=== PATIENT | male | born 1935 | race Caucasian/White ===

== ENCOUNTER → 2016-10-02 | Outpatient (REF) | payer MEDICARE ==
[~2016-10-02] MED LIST: HYDR-4266 PO; LEVO50TA45 PO; PRED20TAB PO
== END ==
LOC: M LAB REF 12:40
PROVIDERS: ATTEND Internal Medicine Pulmonary Disease
DX: J47.9 Bronchiectasis, uncomplicated (principal)

== ENCOUNTER 2016-10-19 13:02 | Inpatient (IN) | payer MEDICARE ==
[~2016-10-19] VITALS: Ht 165.1 cm; Wt 58.0 kg
[2016-10-19 13:56] LABS: BASO % 0.2 % (0.0-1.0); EOS % 0.6 % (0.0-3.0); LARGE UNSTAINED CELL # 0.1 K/mm3 (0.0-0.4); LARGE UNSTAINED CELL % 0.8 % (0.0-4.0); LYMPH # 0.7 K/mm3 (1.5-4.5); MEAN CORPUSCULAR HEMOGLOBIN 30.5 pg (27.0-33.0); MEAN CORPUSCULAR HGB CONC 32.8 g/dl (32.0-36.5); MEAN CORPUSCULAR VOLUME 93.1 fl (80.0-96.0); MONO # 0.2 K/mm3 (0.0-0.8); MONO % 2.3 % (0.0-5.0); NEUTROPHILS # 7.7 K/mm3 (1.8-7.7); NEUTROPHILS % 88.1 % (36.0-66.0); PLATELET COUNT, AUTOMATED 234 k/mm3 (150-450); WHITE BLOOD COUNT 8.8 K/mm3 (4.0-10.0)
[2016-10-19 14:04] LABS: CALCIUM LEVEL 8.4 MG/DL (8.8-10.2); CREATININE FOR GFR 1.34 MG/DL (0.70-1.30); GLOMERULAR FILTRATION RATE 54.6 (>35); POTASSIUM SERUM 3.8 MEQ/L (3.5-5.1)
[2016-10-19 14:14] LABS: ABG BASE EXCESS -0.5 (-2.0-2.0); ABG DEVICE NASAL CANN; ABG HCO3 22.1 MEQ/L (22.0-26.0); ABG PARTIAL PRESSURE CO2 30.1 mmHg (35.0-45.0); ABG PARTIAL PRESSURE O2 69.8 mmHg (75.0-100.0); ABG pH (ARTERIAL) 7.483 UNITS (7.350-7.450)
--- NOTE | 2016-10-19 14:17 | REP ---
Chest x-ray: Two views. History: Shortness of breath. Comparison chest x-ray October 15, 2016. Findings: EKG monitoring electrodes and oxygen delivery tubing are seen. There is a pattern of diffuse extensive interstitial opacification of the lung martínez particularly the left base right upper lung zone and right base area. There is some sparing in the left upper lung zone. Pattern is radiographically unchanged from October 15, 2016. It is much more pronounced than the interstitial fibrosis pattern seen on February 21, 2016. Heart is not enlarged. No pleural effusion is seen. Impression: Progressive and now marked diffuse interstitial lung disease; fibrosis versus other. Some sparing in the left upper lung zone. No significant change from the most recent prior study of October 15, 2016. Signed by Joaquin Sanders MD 10/19/2016 02:50 P
[2016-10-19] MEDS ORDERED: PRED10TA PO (14:53)
[2016-10-19] MEDS ORDERED: VITMTA PO (14:53)
[2016-10-19] MEDS ORDERED: BENZ100C5 PO (14:53)
[2016-10-19] MEDS ORDERED: SYNT75TA PO (14:53)
[2016-10-19] MEDS ORDERED: ISOVUE-370 76% 100ML VIAL (Q9967) As Ordered ONE (16:12)
--- NOTE | 2016-10-19 16:54 | REP ---
CT of the chest, CT pulmonary angiography with IV contrast: Comparison is 2015. There are no emboli in the pulmonary trunk or in the central pulmonary arteries. There are no emboli in the pulmonary lobe or segment branches. There is chronic advanced interstitial fibrosis, also present on the comparison study. However, the study today. There are bilateral superimposed alveolar densities compatible with acute infiltrates suggesting acute on chronic and disease bilaterally. There are small bilateral pleural effusions, also not present previously. The thoracic aorta is unremarkable except for calcified atheroma. Cardiac size is enlarged . There are no pericardial effusions. There is mediastinal adenopathy, similar to the comparison study. Upper abdomen: Cholelithiasis is again identified was also present previously. Visualized portions of the liver, pancreas, spleen, adrenals and renal upper poles are unchanged. Impression: Chronic interstitial fibrosis. New alveolar densities extensively throughout both lungs today suggesting acute infiltrates on chronic fibrosis. New small bilateral pleural effusions. Chronic mediastinal lymphadenopathy. Cholelithiasis, also present previously. Cardiomegaly without pericardial effusion. Signed by Tam Piedra MD 10/19/2016 04:44 P
--- NOTE | 2016-10-19 17:39 | ECGEPIP ---
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
[2016-10-19] MEDS ORDERED: LevoFLOXacin/DEXTROSE 750 MG/150 ML BAG (J1956) As Ordered ONE (18:42)
[2016-10-19] MEDS ORDERED: NS 1,000 ML IV SCH (20:06)
[2016-10-19] MEDS ORDERED: BENZONATATE 100 MG CAP PO PRN (20:15)
[2016-10-19 21:52] VITALS: BP 163/77
[2016-10-19] MEDS ORDERED: cefTRIAXone SOD 1 GM in D5W MINI-BAG PLUS 50 ML IV SCH (22:00)
[2016-10-19] MEDS ORDERED: AZITHROMYCIN INJ 500MG VIAL (J0456) As Ordered ONE (22:49)
[2016-10-19] MEDS: AZITHROMYCIN INJ 500 MG, VIAL MATE ADAPTER 1 EACH in D5W 250 ML IV SCH (22:53)
[2016-10-19 23:05] VITALS: O2SAT 90
--- NOTE | 2016-10-19 23:52 | HPE ---
DATE OF ADMISSION: 10/19/2016 PRIMARY CARE PROVIDER: Dr. Isacc Pritchard [place] DEMONSTRATOR: Dr. Rushing REASON FOR ADMISSION: Shortness of breath. HISTORY OF PRESENT ILLNESS: The patient is an 80-year-old male, past medical history significant for pulmonary fibrosis, sees Dr. Rushing, presented to the emergency room. He stated he has been feeling short of breath for the past 3 days. Denies any fevers or chills. He states he has been having chest pain only with cough. Denies any sick contacts. Denies any other symptoms in the emergency room. The patient underwent a chest x-ray which showed progressive diffuse interstitial disease. CT scan angio was also done which showed new densities throughout both lungs, suggesting acute infiltrates on chronic fibrosis. The patient was admitted under hospitalist service. REVIEW OF SYSTEMS: 12-point review of systems was obtained, all of which was negative except for those mentioned above. PAST MEDICAL HISTORY: Significant for: Pulmonary fibrosis. Hypothyroidism. PAST SURGICAL HISTORY: Hemorrhoidectomy. ALLERGIES: No known drug allergies. HOME MEDICATIONS: - levothyroxine 75 mcg by mouth daily - Prevnar 13 syringe as directed SOCIAL HISTORY: No smoking or alcohol use. Lives at home with his . FAMILY HISTORY: Noncontributory. PHYSICAL FINDINGS: Blood pressure 181/84, pulse 127, respiratory rate 22, temperature 96.3, pulse oximetry 100% on room air. HEENT: Pupils equal, round, reactive. Neck: Supple. No jugular venous distention (JVD). Lungs: Diminished breath sounds. Cardiac: Regular rate and rhythm. Abdomen: Soft, nontender, nondistended. Extremities: No clubbing, cyanosis or edema. LABORATORY FINDINGS: WBC is 8.8, hemoglobin 12.6, hematocrit 38.5, platelets 234. Sodium 139, potassium 3.8, chloride 104, BUN 25, creatinine 1.34, lactic acid was 3.7, troponin 0.25. BNP 3060. ASSESSMENT AND PLAN: 1. Shortness of breath likely secondary to pulmonary fibrosis plus or minus pneumonia. We will treat the patient with antibiotics. Continue oxygen to keep saturations above 90%. Obtain sputum culture, Acapella and incentive spirometer. 2. History of hypothyroidism. Continue the patient's home medication. 3. History of pulmonary fibrosis. The patient was to see Dr. Rushing tomorrow for pulmonary function testing. He will have to reschedule. We will defer to morning team for pulmonary consultation if needed. 4. Deep vein thrombosis (DVT) prophylaxis. Thromboembolism deterrents (TEDs) and sequentials. 5. Elevated troponins. The patient denies any chest pain at this time. No EKG changes. We will continue to monitor on telemetry. 6. Acute kidney injury, likely secondary to dehydration. We will start the patient on IV fluids at a rate of 70 mL an hour. Continue to monitor.
[2016-10-20] VITALS (8 sets, daily range): BP systolic 118–177; BP diastolic 62–89
[2016-10-20] MEDS ORDERED: cefTRIAXone SOD 1 GM VIAL (J0696) As Ordered ONE (00:09)
[2016-10-20 04:59] LABS: ABG BASE EXCESS 0.9 (-2.0-2.0); ABG HCO3 22.9 MEQ/L (22.0-26.0); ABG PARTIAL PRESSURE CO2 28.9 mmHg (35.0-45.0); ABG PARTIAL PRESSURE O2 55.9 mmHg (75.0-100.0); ABG STANDARD HCO3 25.1 MEQ/L (22.0-26.0); ABG TOTAL CO2 23.7 MEQ/L (23.0-31.0); ABG pH (ARTERIAL) 7.516 UNITS (7.350-7.450)
[2016-10-20] MEDS ORDERED: FUROSEMIDE 40 MG/4 ML VIAL (J1940) IV SCH (05:30)
[2016-10-20] MEDS ORDERED: NITROGLYCERIN 2% OINT 1 GM *U/D* PKT As Ordered ONE (05:41)
[2016-10-20] MEDS ORDERED: FUROSEMIDE 40 MG/4 ML VIAL (J1940) As Ordered ONE ×2 (05:41→16:32)
[2016-10-20] MEDS: NITROGLYCERIN 2% OINT 1 GM *U/D* PKT TOP SCH ×3 (05:46→18:11)
[2016-10-20] MEDS: LEVOTHYROXINE 0.075 MG TAB (75 MCG) PO SCH (06:16)
[2016-10-20 07:56] LABS: BASO % 0.1 % (0.0-1.0); EOS % 0.3 % (0.0-3.0); LARGE UNSTAINED CELL # 0.1 K/mm3 (0.0-0.4); LARGE UNSTAINED CELL % 1.1 % (0.0-4.0); LYMPH % 11.6 % (24.0-44.0); MEAN CORPUSCULAR HEMOGLOBIN 31.2 pg (27.0-33.0); MEAN CORPUSCULAR HGB CONC 33.9 g/dl (32.0-36.5); MEAN CORPUSCULAR VOLUME 91.8 fl (80.0-96.0); MONO # 0.3 K/mm3 (0.0-0.8); NEUTROPHILS # 6.9 K/mm3 (1.8-7.7); NEUTROPHILS % 83.8 % (36.0-66.0); PLATELET COUNT, AUTOMATED 230 k/mm3 (150-450); WHITE BLOOD COUNT 8.3 K/mm3 (4.0-10.0)
[2016-10-20 08:10] LABS: ALBUMIN 2.1 GM/DL (3.2-5.2); ALKALINE PHOSPHATASE 96 U/L (45-117); ALT/SGPT 32 U/L (12-78); ANION GAP 12 MEQ/L (8-16); AST/SGOT 34 U/L (15-37); BILIRUBIN,TOTAL 1.1 MG/DL (0.2-1.0); BLOOD UREA NITROGEN 23 MG/DL (7-18); CALCIUM LEVEL 8.1 MG/DL (8.8-10.2); CARBON DIOXIDE LEVEL 26 MEQ/L (21-32); CHLORIDE LEVEL 102 MEQ/L (98-107); GLOMERULAR FILTRATION RATE > 60.0 (>35); GLUCOSE, FASTING 136 MG/DL (83-110); POTASSIUM SERUM 3.5 MEQ/L (3.5-5.1); SODIUM LEVEL 140 MEQ/L (136-145); TOTAL PROTEIN 7.4 GM/DL (6.4-8.2)
--- NOTE | 2016-10-20 08:22 | REP ---
Portable chest x-ray: Single view. History: Hypoxia. Comparison chest x-ray October 19, 2016. Findings: EKG monitoring electrodes overlie the chest. There is extensive interstitial lung disease throughout the lung martínez with some sparing in the left apex again noted essentially unchanged. Mild cardiomegaly unchanged. Impression: Extensive diffuse interstitial lung disease essentially unchanged from the previous day's study. Signed by Joaquin Sanders MD 10/20/2016 08:27 A
[2016-10-20] MEDS ORDERED: predniSONE 10 MG TAB PO SCH (09:00)
[2016-10-20] MEDS ORDERED: predniSONE 5 MG TAB As Ordered ONE (09:10)
[2016-10-20] MEDS ORDERED: MULTIVITAMINS/MINERALS THERAP 1 TAB As Ordered ONE (09:10)
[2016-10-20] MEDS: MULTIVITAMINS/MINERALS THERAP 1 TAB PO SCH (09:13)
[2016-10-20] MEDS ORDERED: diphenhydrAMINE 25 MG CAP PO PRN (13:30)
--- NOTE | 2016-10-20 13:38 | IPN ---
DATE: 10/20/2016 80-year-old gentleman seen at bedside. No overnight issues. He does still continue to be a little lethargic and short of breath but is having a nonproductive cough. OBJECTIVE Temperature is 99.5, pulse 120, blood pressure 118/82, SpO2 is 87% on 4 liters. GENERAL: The patient appears to be in no acute distress. He is alert and oriented. HEENT: Unremarkable. LUNGS: Diminished bibasilar breath sounds. HEART: Regular rate and rhythm. ABDOMEN: Soft. EXTREMITIES: No edema. No calf tenderness. LABORATORY DATA: White count 8.3, hemoglobin 12.9, platelets are 230,000. Sodium 140, potassium 3.5, chloride 102, bicarbonate 26, anion gap 12, BUN is 23, creatinine 1.10, glucose is 136, lactic acid repeat at midnight was 1.4, AST 34, ALT 32, alkaline phosphatase 96, troponin 0.2. BNP on admission was greater than 3000, blood cultures negative times two. Sputum culture is pending. ASSESSMENT AND PLAN: 1. Acute hypoxic respiratory failure superimposed on chronic respiratory failure with home oxygen use. We will check his sputum culture. Acapella and incentive spirometer are continued with nebulizes. He does have an underlying history of pulmonary fibrosis. 2. Elevated troponin with elevated BNP. He did receive a dose of Lasix this morning. Repeating a chest x-ray on him. 3. Acute kidney injury. Does show extensive diffuse interstitial lung disease. No acute infiltrate or consolidation noted. CT angio of the chest showed chronic interstitial fibrosis and alveolar densities were seen throughout the lung martínez suggesting acute infiltrates superimposed on chronic fibrosis. Small bilateral pleural effusions were noted. There is no echocardiogram available to me. We will go ahead and order an echo on him . I do wonder if there is a component of congestive heart failure involved with this gentleman. He does not have any lower extremity edema at this time, but he did have an elevated BMP. 4. Hypothyroidism. Continue with Synthroid. 5. Deep vein thrombosis (DVT) prophylaxis with KEYUR and sequential compression device (SCD). DISPOSITION: Anticipate he will be here greater than two midnights. I am going to give him some Solu-Medrol to see if this helps out with his symptomatology. We will see how he does and see what his echocardiogram shows and cycle his cardiac enzymes again. Based on how he does over the next 24 hours, it may be advisable to either consult pulmonology versus cardiology.
[2016-10-20] MEDS ORDERED: methylPREDNISolone INJ 125 MG/2 ML VIAL (J2930) IV ONE (14:30)
--- NOTE | 2016-10-20 14:30 | PHACANCOPD ---
PHARMACY VANCOMYCIN DOSING Pt Demographics Demographics Patient Age:80 , Weight:64.800 , Gender: male Adjusted Body Weight Date: 10/20/16, Adjusted Body Weight: [64.8] Kg Events Past 24 Hours Events Past 24 Hours: NO: Change in CrCl, Dialysis, Diuretic Therapy, Elevation in WBC, Fever, Other, Pending Diagnostics, Pending Procedures Vancomycin Vancomycin indication: SEPSIS Vancomycin Target Ranges: 15-20 mcg/ml Vancomycin Load Y/N: Yes Load Dose Date Time Vancomycin Load Dose: 1.5G Date: 10/20/16 Time: 1500 Vancomycin Dose Date: 10/20/16. Current Vancomycin Dose: [1G Q24H @1300] Intermittent Dosing?: No Labs Labs Item Value Date Time White Blood Count 8.8 K/mm3 10/19/16 1249 White Blood Count 8.3 K/mm3 10/20/16 0724 Creatinine 1.10 MG/DL 10/20/16 0724 Vital Signs Label Value Date Time Patient Temperature 97.5 degrees F 10/20/16 1200 Temperature Source Oral 10/20/16 1200 Micro Microbiology 10/19/16 Blood Culture, Received Pending 10/19/16 Blood Culture - Preliminary, Resulted No growth after 24 hours . All specim... 10/19/16 Gram Stain - Final, Resulted 10/19/16 Sputum Culture, Resulted Pending Creatinine Clearance Date:10/20/16. Creatinine Clearance: [46.6ML/MIN]. Pending Labs BLOOD AND SPUTUM CULTURE Assessment and Plan Maintaining Current Dose?: Yes Reason for dose change: No Dose Change Pharmacist Note Pharmacist Note Date: 10/20/16. Pharmacist note: PT is an 80 y/o with no history of vancomycin therapy at [facility] being treated for sepsis. Pt currently has a sputum and blood culture pending. Target therapy is 15-20mcg/ml. To achieve this a 1.5g loading dose was gave at 1500 10/20/16 with maintenance of 1g q24h. We will continue to monitor and adjust as needed. [facility] Oct 20, 2016 14:30
[2016-10-20] MEDS ORDERED: VANCOMYCIN 1000 MG/20 ML VIAL (J3370) As Ordered ONE (15:14)
[2016-10-20] MEDS ORDERED: methylPREDNISolone INJ 125 MG/2 ML VIAL (J2930) As Ordered ONE (15:14)
[2016-10-20] MEDS ORDERED: PHENAZOPYRIDINE 100 MG TAB As Ordered ONE (15:14)
[2016-10-20] MEDS: PHENAZOPYRIDINE 100 MG TAB PO SCH ×2 (15:20→22:37)
[2016-10-20] MEDS: VANCOMYCIN HCL 1,000 MG, VIAL MATE ADAPTER 1 EACH in D5W 250 ML IV SCH (15:20)
[2016-10-20] MEDS ORDERED: VANCOMYCIN HCL 500 MG in D5W MINI-BAG PLUS 100 ML IV ONE (16:00)
[2016-10-20] MEDS ORDERED: VANCOMYCIN HCL 500 MG/10 ML VIAL (J3370) As Ordered ONE (16:32)
[2016-10-20] MEDS: FUROSEMIDE 40 MG/4 ML VIAL (J1940) IV SCH ×2 (16:39→21:34)
[2016-10-20 17:23] LABS: ABG BASE EXCESS 3.1 (-2.0-2.0); ABG HCO3 25.5 MEQ/L (22.0-26.0); ABG PARTIAL PRESSURE CO2 31.9 mmHg (35.0-45.0); ABG PARTIAL PRESSURE O2 77.9 mmHg (75.0-100.0); ABG STANDARD HCO3 27.2 MEQ/L (22.0-26.0); ABG TOTAL CO2 26.4 MEQ/L (23.0-31.0)
--- NOTE | 2016-10-20 17:43 | EDDOCDS ---
Physician Documentation [facility] Name: Andre Lozano Age: 80 yrs Sex: Male : 1935 Arrival Date: 10/19/2016 Time: 13:02 Bed Admit Hold Private MD: Isacc Pritchard Disposition: 10/19 18:27 Critical Care: Critical care not applicable. le Disposition: 10/19/16 18:26 Hospitalization ordered by Kory Alford for Inpatient Admission. Preliminary diagnosis are Unspecified bacterial pneumonia, Idiopathic pulmonary fibrosis, Shortness of breath, Acute respiratory failure with hypoxia. - Bed requested for PCU. - Status is Inpatient Admission. aa3 - Condition is Stable. - Problem is an acute exacerbation. - Symptoms have improved. Historical: - Allergies: no known allergies; - Home Meds: 1. Cialis 2.5 mg oral tab 1 tab once daily 2. previnar 13 syringe as directed 3. levothyroxine 75 mcg oral tab once daily 4. Cefuroxime Oral 500 mg twice a day started 10/17/2015 5. benzonatate 100 mg oral cap 1 cap 3 times per day - PMHx: Hypothyroidism; pulmonary fibrosis; - PSHx: Hemorrhoidectomy; - Social history: Smoking status: Patient states was never smoker of tobacco. No barriers to communication noted, Speaks appropriately for age. - Family history: Not pertinent. - : The pt / caregiver states he / she is not on anticoagulants. Unable to Verify Home Med List with the patient / caregiver. - Exposure Risk Screening:: None identified. Vital Signs: 13:04 BP 181 / 84; Pulse 127; Resp 22 S; Temp 96.3; Pulse Ox 100% on R/A; Weight 67.13 kg / dd6 148 lbs (R); Height 5 ft. 5 in. (165.10 cm) (R); 13:26 Pulse 112 MON; Pulse Ox 71% ; kcs 13:30 BP 192 / 92 (auto/); kcs 13:36 Pulse 111 MON; Pulse Ox 95% ; kcs 14:07 Pulse 110 MON; Pulse Ox 94% ; rs3 14:08 BP 154 / 76 (auto/); rs3 14:13 Pulse 105 MON; Pulse Ox 95% ; rs3 14:18 BP 164 / 94 (auto/); rs3 14:18 Pulse 106 MON; Pulse Ox 96% ; rs3 14:33 BP 170 / 80 (auto/); rs3 14:33 Pulse 104 MON; Pulse Ox 95% ; rs3 14:48 BP 170 / 73 (auto/); rs3 14:48 Pulse 104 MON; Pulse Ox 96% ; rs3 15:03 BP 139 / 66 (auto/); rs3 15:03 Pulse 101 MON; Pulse Ox 95% ; rs3 15:16 Pulse 106 MON; Pulse Ox 93% ; rs3 15:18 BP 116 / 69 (auto/); rs3 15:48 BP 191 / 85 (auto/); rs3 15:48 Pulse 104 MON; Pulse Ox 94% ; rs3 16:03 BP 171 / 85 (auto/); rs3 16:03 Pulse 103 MON; Pulse Ox 95% ; rs3 16:18 BP 168 / 80 (auto/); rs3 16:18 Pulse 102 MON; Pulse Ox 94% ; rs3 16:33 BP 164 / 76 (auto/); rs3 16:34 Pulse 110 MON; Pulse Ox 93% ; rs3 16:48 BP 160 / 74 (auto/); rs3 16:48 Pulse 103 MON; Pulse Ox 95% ; rs3 17:15 BP 151 / 73 (auto/); rs3 17:15 Pulse 102 MON; Pulse Ox 94% ; rs3 17:18 BP 147 / 77 (auto/); rs3 17:18 Pulse 102 MON; Pulse Ox 94% ; rs3 13:04 Body Mass Index 24.63 (67.13 kg, 165.10 cm) dd6 MDM: 13:38 Chest, 2 View (pa\E\lat) Ordered. EDMS 13:38 Call Respiratory ordered. le 13:39 -Arterial Blood Gas Ordered. EDMS 13:41 Call Respiratory complete. deg 13:42 -Blood Culture (Adults Only), peripheral from different site, or from device/port/PICC le etc. if present ordered. 13:42 Patient Liaison/Pulse Ox/q 15 min VS ordered. le 13:42 IV Saline Lock ordered. le 13:42 Oxygen at 4L/Min NC or Home dosage ordered. le 13:42 Rhythm Strip to chart ordered. le 13:42 Basic Metabolic Profile Ordered. EDMS 13:42 CBC with Diff Ordered. EDMS 13:42 Cardiac Injury Profile Ordered. EDMS 13:42 Troponin Ordered. EDMS 13:43 D-Dimer Quant Ordered. EDMS 13:43 -Blood Culture Ordered. EDMS 13:43 ECG WITH READING ER PHYS+CARDIAG ordered. EDMS 14:00 Misc. Nursing Order ordered. le 14:05 -Blood Culture (Adults Only), peripheral from different site, or from device/port/PICC deg etc. if present complete. 14:06 BED REQUEST+ADM ordered. EDMS 14:06 BNP Ordered. EDMS 14:06 BLOOD CULTURES Ordered. EDMS 14:13 Financial registration complete. lg 14:39 [facility] [place] was scanned into [employer] and attached to record. lg 15:57 -Arterial Blood Gas Reviewed. le 15:57 Basic Metabolic Profile Reviewed. le 15:57 CBC with Diff Reviewed. le 15:57 Cardiac Injury Profile Reviewed. le 15:57 Troponin Reviewed. le 15:57 BNP Reviewed. le 15:57 Chest, 2 View (pa\E\lat) Reviewed. le 16:00 D-Dimer Quant Reviewed. le 16:02 CT Chest Angio R/O PE Ordered. EDMS 16:05 Redraw CIP &Troponin (put time in details section) ordered. le 16:13 Redraw CIP &Troponin (put time in details section) complete. deg 16:14 CARDIAC MARKER PANEL Ordered. EDMS 18:15 CARDIAC MARKER PANEL Reviewed. le 18:15 levofloxacin 750 mg IVPB once over 90 mins ordered. le 18:19 Lactic Acid (Maynard tube on ice) Ordered. EDMS 20:11 Admission / Observation Status ordered. EDMS 20:11 ELECTROCARDIOGRAM ADULT ordered. EDMS 20:11 REGULAR DIET ordered. EDMS 20:12 CBC WITH DIFFERENTIAL Ordered. EDMS 20:12 COMPLETE COMPHRENSIVE METABOLI Ordered. EDMS 20:13 TROPONIN Ordered. EDMS 22:24 LACTIC ACID LEVEL, LACTATE Ordered. EDMS 22:28 SPUTUM CULTURE AND GRAM STAIN Ordered. EDMS 10/20 04:36 ARTERIAL BLOOD GAS Ordered. EDMS 04:51 PORTABLE CHEST X-RAY Ordered. EDMS 04:55 ECHOCARD,DOPPLER/COLOR FLOW ordered. EDMS 06:34 MAGNESIUM LEVEL Ordered. EDMS 07:47 TROPONIN Ordered. EDMS 09:35 T-Sheet-- Draft Copy was scanned into [employer] and attached to record. gb 13:19 URINALYSIS Ordered. EDMS 15:20 Chest, 1 view Ordered. EDMS 15:22 URINE STREP PNEUMONIAE ANTIGEN Ordered. EDMS 15:22 LEGIONELLA ANTIGEN URINE Ordered. EDMS 15:22 RESPIRATORY PANEL Ordered. EDMS 15:26 C REACTIVE PROTEIN QUANTITATIV Ordered. EDMS 16:44 ARTERIAL BLOOD GAS Ordered. EDMS Administered Medications: 10/19 18:50 Drug: levofloxacin 750 mg [levofloxacin 500 mg/100 mL in 5 % dextrose intravenous rs3 piggyback] Route: IVPB; Infused Over: 90 mins; Site: left forearm; Signatures: Dispatcher [employer] EDMS Faviola Russell, RN RN kcs Cassidy Garcia, Supervisor [employer] deg Barnhlucyt, Mera, Reg Reg gb Neha Nguyen, Reg Reg lg Viji Lassiter, ROLLWAY MAN ROLLWAY MAN Spencer Issa RN RN ml6 Kamille HouseRN RN aa3 Eli FloresRN RN cf2 Mirian, Ashlyn ZAYAS rs3 The chart was reviewed and I authenticate all verbal orders and agree with the evaluation and treatment provided.Corrections: (The following items were deleted from the chart) : 20:12 TROPONIN ordered. EDTN EDMS 10/20 05:01 04:36 Chest, 2 view PA, Lat ordered. EDTN EDMS 06:35 10/19 22:30 MAGNESIUM LEVEL ordered. EDTN EDMS 10/20 07:49 10/19 20:13 TROPONIN ordered. EDTN EDMS 10/20 13:39 13:01 ECHOCARD,DOPPLER/COLOR FLOW ordered. EDTN EDMS 15:26 15:24 C REACTIVE PROTEIN QUANTITATIV ordered. EDTN EDMS Attachments: 10/19 14:39 [facility] Payment Agreement lg 10/20 09:35 T-Sheet-- Draft Copy gb MTDD
--- NOTE | 2016-10-20 17:45 | EDDOCDS ---
Nurse's Notes [facility] Name: Andre Paz Age: 80 yrs Sex: Male : 1935 Arrival Date: 10/19/2016 Time: 13:02 Bed Admit Hold Private MD: Isacc Pritchard Diagnosis: Unspecified bacterial pneumonia;Idiopathic pulmonary fibrosis;Shortness of breath;Acute respiratory failure with hypoxia Presentation: 10/19 13:06 Presenting complaint: Patient states: states fell Wednesday, states Hx of pulmonary ml6 fibrosis, states increasing SOB x 4 days since fall. Adult Sepsis Screening: The patient does not have new or worsening altered mentation. Patient has a respiratory rate of greater than or equal to 22 (1 point). Systolic blood pressure is greater than 100. Patient has a qSOFA score of 0- Negative Sepsis Screen. Suicide/Homicide risk assessment- the patient denies having any suicidal and/or homicidal ideations and does not present with any other emotional, behavioral or mental health complaints. Status: Patient is not a client service supervisor or dependent. Transition of care: patient was not received from another setting of care. 13:06 Acuity: ALEXANDER Level 3 ml6 13:06 Method Of Arrival: Walkin/Carried/Asstd ml6 Triage Assessment: 13:10 General: Appears in no apparent distress, Behavior is appropriate for age, cooperative. ml6 Pain: Denies pain. Cardiovascular: No deficits noted. Respiratory: Onset: The symptoms/episode began/occurred 4 days WRAP TURNER, Airway is patent Respiratory effort is even, unlabored, Respiratory pattern is regular, symmetrical, Breath sounds are diminished bilaterally. Reports shortness of breath at rest cough that is non-productive, dry, hacking, persistent the patient has moderate shortness of breath. GI: No deficits noted. Historical: - Allergies: no known allergies; - Home Meds: 1. Cialis 2.5 mg oral tab 1 tab once daily 2. previnar 13 syringe as directed 3. levothyroxine 75 mcg oral tab once daily 4. Cefuroxime Oral 500 mg twice a day started 10/17/2015 5. benzonatate 100 mg oral cap 1 cap 3 times per day - PMHx: Hypothyroidism; pulmonary fibrosis; - PSHx: Hemorrhoidectomy; - Social history: Smoking status: Patient states was never smoker of tobacco. No barriers to communication noted, Speaks appropriately for age. - Family history: Not pertinent. - : The pt / caregiver states he / she is not on anticoagulants. Unable to Verify Home Med List with the patient / caregiver. - Exposure Risk Screening:: None identified. Screenin:16 Screening information is obtained from the patient. Fall risk: At risk due to prior rs3 history of falls. Assistance ADL's: Requires assistance with meal preparation, this assistance is provided by family members, bathing, assistance is provided by family members, housework, assistance is provided by family members, medication administration, assistance is provided by family members. Abuse/DV Screen: The patient / caregiver reports he/she is: not in a situation that causes fear, pain or injury. Nutritional screening: No deficits noted. Advance Directives: Currently, there is no health care proxy. There is no active DNR order. home support is adequate. Assessment: 13:30 General: Appears in no apparent distress, see triage assessment. rs3 14:54 General: Appears in no apparent distress, comfortable, Behavior is appropriate for age, jmb cooperative, Patient laying on stretcher, appears comfortable. Voices no complaints at this time. . Neurological: Level of Consciousness is awake, alert, obeys commands, Oriented to person, place, time. Respiratory: Airway is patent Respiratory effort is even, unlabored, Respiratory pattern is regular, symmetrical. 15:21 General: Appears in no apparent distress. Cardiovascular: Capillary refill < 3 seconds rs3 Heart tones S1 S2 present. Cardiovascular: Chest pain is denied. Respiratory: Breath sounds with crackles in right posterior upper lobe and right posterior middle lobe Breath sounds are diminished in left posterior upper lobe and left posterior lower lobe. Derm: Skin is pink, warm & dry. 16:30 General: Appears in no apparent distress, Behavior is cooperative, returned from CT. rs3 tolerated well. SOB on Exertion. breathes easy at rest. on oxygen 4L/nc sat in 95%. will continue to monitor. . 17:30 General: Appears in no apparent distress, Behavior is cooperative, sob on exertion. rs3 breathes easy at rest. on oxygen 4L/nc. stat 95%. waiting on CT results. 18:52 General: Appears in no apparent distress, Behavior is appropriate for age, cooperative, rs3 admission provider with patient. ordered IV antibiotic infusing. family at bedside. manuel Aislinn given. tolerating well. . 20:28 Reassessment: Patient denies pain at this time. Patient states feeling better. Patient cf2 states symptoms have improved. Adult Sepsis Screening: The patient does not have new or worsening altered mentation. Patient's respiratory rate is less than 22. Systolic blood pressure is greater than 100. Patient has a qSOFA score of 0- Negative Sepsis Screen. 10/20 15:05 General: pt found at this time trying to get OOB. pt had removed venti mask and mb9 appeared SOB. pulse ox applied and showed a O2 sat of 70%. pt immediately placed back in bed and had venti mask put back in place. SpO2 eventually came up to 94%. . 15:17 General: pt wanted to get up to the commode. at this time pt was assisted by two RN to mb9 transfer to a bedside commode. pt appeared very unsteady on his feet. pt appeared SOB and SpO2 dropped to 85%.. Vital Signs: 10/19 13:04 BP 181 / 84; Pulse 127; Resp 22 S; Temp 96.3; Pulse Ox 100% on R/A; Weight 67.13 kg dd6 (R); Height 5 ft. 5 in. (165.10 cm) (R); 13:26 Pulse 112 MON; Pulse Ox 71% ; kcs 13:30 BP 192 / 92 (auto/); kcs 13:36 Pulse 111 MON; Pulse Ox 95% ; kcs 14:07 Pulse 110 MON; Pulse Ox 94% ; rs3 14:08 BP 154 / 76 (auto/); rs3 14:13 Pulse 105 MON; Pulse Ox 95% ; rs3 14:18 BP 164 / 94 (auto/); rs3 14:18 Pulse 106 MON; Pulse Ox 96% ; rs3 14:33 BP 170 / 80 (auto/); rs3 14:33 Pulse 104 MON; Pulse Ox 95% ; rs3 14:48 BP 170 / 73 (auto/); rs3 14:48 Pulse 104 MON; Pulse Ox 96% ; rs3 15:03 BP 139 / 66 (auto/); rs3 15:03 Pulse 101 MON; Pulse Ox 95% ; rs3 15:16 Pulse 106 MON; Pulse Ox 93% ; rs3 15:18 BP 116 / 69 (auto/); rs3 15:48 BP 191 / 85 (auto/); rs3 15:48 Pulse 104 MON; Pulse Ox 94% ; rs3 16:03 BP 171 / 85 (auto/); rs3 16:03 Pulse 103 MON; Pulse Ox 95% ; rs3 16:18 BP 168 / 80 (auto/); rs3 16:18 Pulse 102 MON; Pulse Ox 94% ; rs3 16:33 BP 164 / 76 (auto/); rs3 16:34 Pulse 110 MON; Pulse Ox 93% ; rs3 16:48 BP 160 / 74 (auto/); rs3 16:48 Pulse 103 MON; Pulse Ox 95% ; rs3 17:15 BP 151 / 73 (auto/); rs3 17:15 Pulse 102 MON; Pulse Ox 94% ; rs3 17:18 BP 147 / 77 (auto/); rs3 17:18 Pulse 102 MON; Pulse Ox 94% ; rs3 13:04 Body Mass Index 24.63 (67.13 kg, 165.10 cm) dd6 Vitals: 13:04 Log In Time: October 19, 2016 at 13:02. dd6 ED Course: 13:03 Patient visited by Flash Barker PCA. dd6 13:03 Patient moved to Waiting dd6 13:04 Isacc Pritchard is Private Physician. dd6 13:04 Patient moved to Pre RCE dd6 13:07 Triage Initiated ml6 13:11 Ashlyn Vela,RN is Primary Nurse. ml6 13:11 Monse Fish,RN is Primary Nurse. 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 Pulse ox on. NIBP on. ct3 13:14 Patient moved to 1 jlf 13:17 [facility] le 13:30 O2 via nasal cannula \T\ 3L/min. kcs 13:32 Patient visited by Giovana Faith PCA. ct3 13:32 Accompanied by Family Member, Patient has correct armband on for positive ct3 identification. Placed in gown. Bed in low position. Call light in reach. Side rails up X2. 13:35 Inserted saline lock: 20 gauge in left forearm The patient tolerated the procedure well.kcs 13:41 Patient visited by Viji Lassiter FNP. le 13:41 Patient visited by Viji Lassiter FNP. le 14:03 EKG done. (by ED staff). Reviewed by Viji MOREJON. ct3 14:07 Patient visited by Giovana Faith PCA. ct3 14:08 -Arterial Blood Gas Sent. cs15 14:39 Patient name changed from Andre\S\Robin\S\Marta\S\ to Andre\S\N\S\Marta. EDMS 14:39 [facility] Payment Agreement was scanned into [employer] and attached to record. lg 14:43 Chest, 2 View (pa\E\lat) Returned. EDMS 14:55 Patient visited by Eduardo Rios,RN. jmb 15:25 Patient visited by Ashlyn Vela RN. rs3 15:38 BLOOD CULTURES Sent. ct3 16:22 Patient visited by Salima Arthur,CHANA. ead 16:51 Patient visited by Thomas Brothers PCA. jlf 17:14 CT Chest Angio R/O PE Returned. EDMS 17:50 EKG-ADULT Returned. EDMS 17:53 Patient visited by Ashlyn Vela,CHANA. rs3 18:26 Kory Alford is Hospitalizing Provider. le 19:26 Primary Nurse role handed off by Ashlyn Vela,CHANA cf2 19:26 Eli Flores,CHANA is Primary Nurse. cf2 19:26 Patient visited by Eli Flores,CHANA. cf2 19:33 Ashlyn Vela RN is Primary Nurse. sls1 19:33 Patient moved to 6 sls1 20:09 Patient visited by Eli Flores,CHANA. cf2 20:28 Patient visited by Eli Flores,CHANA. cf2 20:29 Patient visited by Eli Flores,CHANA. cf2 20:43 Patient moved to Admit Hold tmm1 22:55 Patient visited by Eli Flores,CHANA. cf2 22:57 Patient visited by Eli Flores,CHANA. cf2 22:57 The patient / caregiver is instructed regarding the plan of care and ED course. cf2 22:57 No procedures done that require assistance. cf2 10/20 01:29 Primary Nurse role handed off by Ashlyn Vela RN dre 01:29 Primary Nurse role handed off by Monse Fish RN oziel 04:54 ARTERIAL BLOOD GAS Sent. bb3 08:54 PORTABLE CHEST X-RAY Returned. EDMS 09:35 T-Sheet-- Draft Copy was scanned into [employer] and attached to record. gb 13:10 Jayla Esteves MD is Attending Physician. pc 17:19 ARTERIAL BLOOD GAS Sent. rs5 Administered Medications: 10/19 18:50 Drug: levofloxacin 750 mg [levofloxacin 500 mg/100 mL in 5 % dextrose intravenous rs3 piggyback] Route: IVPB; Infused Over: 90 mins; Site: left forearm; RT: 14:09 ABG's drawn from right radial artery allens test done and positive pressure held for 5 cs15 minutes no bleeding noted pressure bandage applied specimen sent pt. tolerated well. 14:09 O2 via nasal cannula \T\ 3L/min. cs15 10/20 04:54 ABG's drawn from left radial artery pressure held for 5 minutes no bleeding noted bb3 pressure bandage applied specimen sent pt. tolerated well. O2 via nasal cannula \T\ 4L/min. 04:54 Respiratory: Respiratory effort is even, labored, Respiratory pattern is regular bb3 symmetrical, Breath sounds with rales in left posterior lower lobe and right posterior lower lobe. 17:20 ABG's drawn from left radial artery allens test done and positive pressure held for 5 rs5 minutes no bleeding noted pressure bandage applied specimen sent pt. tolerated well. Order Results: Lab Order: -Arterial Blood Gas; SPEC'M 10/19/16 14:07 Test: ABG pH (ARTERIAL); Value: 7.483; Range: 7.350-7.450; Abnormal: Above high normal; Units: UNITS; Status: F Test: ABG PARTIAL PRESSURE CO2; Value: 30.1; Range: 35.0-45.0; Abnormal: Below low normal; Units: mmHg; Status: F Test: ABG PARTIAL PRESSURE O2; Value: 69.8; Range: 75.0-100.0; Abnormal: Below low normal; Units: mmHg; Status: F Test: ABG TOTAL CO2; Value: 23.0; Range: 23.0-31.0; Units: MEQ/L; Status: F Test: ABG HCO3; Value: 22.1; Range: 22.0-26.0; Units: MEQ/L; Status: F Test: ABG BASE EXCESS; Value: -0.5; Range: -2.0-2.0; Status: F Test: ABG STANDARD HCO3; Value: 24.0; Range: 22.0-26.0; Units: MEQ/L; Status: F Test: ABG O2 SATURATION; Value: 93.4; Range: 95.0-99.0; Abnormal: Below low normal; Units: %; Status: F Test: ABG DEVICE; Value: NASAL SAI; Status: F Lab Order: -Blood Culture; SPEC'M 10/19/16 12:49 Test: BLOOD CULTURE; Value: No growth after 24 hours . All specimens observed; Status: F Test: BLOOD CULTURE; Value: for 7 days. Results final at that time.; Status: F Lab Order: Basic Metabolic Profile; SPEC'M 10/19/16 12:49 Test: GLUCOSE, FASTING; Value: 223; Range: 83-110; Abnormal: Above high normal; Units: MG/DL; Status: F Test: BLOOD UREA NITROGEN; Value: 25; Range: 7-18; Abnormal: Above high normal; Units: MG/DL; Status: F Test: CREATININE FOR GFR; Value: 1.34; Range: 0.70-1.30; Abnormal: Above high normal; Units: MG/DL; Status: F Test: GLOMERULAR FILTRATION RATE; Value: 54.6; Range: >35; Status: F Test: SODIUM LEVEL; Value: 139; Range: 136-145; Units: MEQ/L; Status: F Test: POTASSIUM SERUM; Value: 3.8; Range: 3.5-5.1; Units: MEQ/L; Status: F Test: CHLORIDE LEVEL; Value: 104; Range: 98-107; Units: MEQ/L; Status: F Test: CARBON DIOXIDE LEVEL; Value: 24; Range: 21-32; Units: MEQ/L; Status: F Test: ANION GAP; Value: 11; Range: 8-16; Units: MEQ/L; Status: F Test: CALCIUM LEVEL; Value: 8.4; Range: 8.8-10.2; Abnormal: Below low normal; Units: MG/DL; Status: F Test Note: ; Units are mL/min/1.73 m2 Chronic Kidney Disease Staging per NKF: Stage I & II GFR >=60 Normal to Mildly Decreased Stage III GFR 30-59 Moderately Decreased Stage IV GFR 15-29 Severely Decreased Stage V GFR <15 Very Little GFR Left ESRD GFR <15 on SHOE HANDLER Lab Order: CBC with Diff; SPEC'M 10/19/16 12:49 Test: WHITE BLOOD COUNT; Value: 8.8; Range: 4.0-10.0; Units: K/mm3; Status: F Test: RED BLOOD COUNT; Value: 4.13; Range: 4.30-6.10; Abnormal: Below low normal; Units: M/mm3; Status: F Test: HEMOGLOBIN; Value: 12.6; Range: 14.0-18.0; Abnormal: Below low normal; Units: g/dl; Status: F Test: HEMATOCRIT; Value: 38.5; Range: 42.0-52.0; Abnormal: Below low normal; Units: %; Status: F Test: MEAN CORPUSCULAR VOLUME; Value: 93.1; Range: 80.0-96.0; Units: fl; Status: F Test: MEAN CORPUSCULAR HEMOGLOBIN; Value: 30.5; Range: 27.0-33.0; Units: pg; Status: F Test: MEAN CORPUSCULAR HGB CONC; Value: 32.8; Range: 32.0-36.5; Units: g/dl; Status: F Test: RED CELL DISTRIBUTION WIDTH; Value: 15.0; Range: 11.5-14.5; Abnormal: Above high normal; Units: %; Status: F Test: PLATELET COUNT, AUTOMATED; Value: 234; Range: 150-450; Units: k/mm3; Status: F Test: NEUTROPHILS %; Value: 88.1; Range: 36.0-66.0; Abnormal: Above high normal; Units: %; Status: F Test: LYMPH %; Value: 8.0; Range: 24.0-44.0; Abnormal: Below low normal; Units: %; Status: F Test: MONO %; Value: 2.3; Range: 0.0-5.0; Units: %; Status: F Test: EOS %; Value: 0.6; Range: 0.0-3.0; Units: %; Status: F Test: BASO %; Value: 0.2; Range: 0.0-1.0; Units: %; Status: F Test: LARGE UNSTAINED CELL %; Value: 0.8; Range: 0.0-4.0; Units: %; Status: F Test: NEUTROPHILS #; Value: 7.7; Range: 1.8-7.7; Units: K/mm3; Status: F Test: LYMPH #; Value: 0.7; Range: 1.5-4.5; Abnormal: Below low normal; Units: K/mm3; Status: F Test: MONO #; Value: 0.2; Range: 0.0-0.8; Units: K/mm3; Status: F Test: EOS #; Value: 0.0; Range: 0.0-0.50; Units: K/mm3; Status: F Test: BASO #; Value: 0.0; Range: 0.0-0.2; Units: K/mm3; Status: F Test: LARGE UNSTAINED CELL #; Value: 0.1; Range: 0.0-0.4; Units: K/mm3; Status: F Lab Order: Cardiac Injury Profile; SPEC'M 10/19/16 12:49 Test: CPK CREATINE PHOSPHOKINASE; Value: 67; Range: 39-308; Units: U/L; Status: F Test: CK-MB VALUE MASS; Value: 4.1; Range: 0.0-3.6; Abnormal: Above high normal; Units: NG/ML; Status: F Test: MB/CK RELATIVE INDEX; Value: 6.11; Range: < OR =4; Abnormal: Above high normal; Status: F Test Note: ; DIAGNOSIS CRITERIA MMB ng/ml Relative Index (RI) NON-AMI < or = 5 N/A MAYNARD ZONE > 5 < or = 4 AMI > 5 > 4 Lab Order: Troponin; SPEC'M 10/19/16 12:49 Test: TROPONIN I; Value: 0.25; Range: < 0.10; Abnormal: Above high normal; Units: NG/ML; Status: F Test Note: ; Troponin I Reference Interval for [employer] LOCI: 99th Percentile= 0.00-0.045 ng/ml Risk Stratification: <= 0.10 ng/ml Decreased Risk for Adverse Clinical Events. 0.10-1.50 ng/ml Increased Risk for Adverse Clinical Events. Evaluation of additional criterion and/or repeat testing in 2-6 hours is suggested to rule out myocardial damage. >= 1.50 ng/ml Indicative of Myocardial Injury. Lab Order: D-Dimer Quant; [facility] 10/19/16 15:33 Test: D-DIMER QUANT; Value: 2481.0; Range: <500; Abnormal: Above high normal; Units: ng/ml; Status: F Lab Order: BNP; [facility] 10/19/16 12:49 Test: BRAIN NATRIURETIC PEPTIDE; Value: 3060; Range: <100; Abnormal: Above high normal; Units: PG/ML; Status: F Lab Order: BLOOD CULTURES; 10/19/16 15:33 Test: BLOOD CULTURE; Value: No growth after 24 hours . All specimens observed; Status: F Test: BLOOD CULTURE; Value: for 7 days. Results final at that time.; Status: F Lab Order: CARDIAC MARKER PANEL; [facility] 10/19/16 17:08 Test: CPK CREATINE PHOSPHOKINASE; Value: 53; Range: 39-308; Units: U/L; Status: F Test: CK-MB VALUE MASS; Value: 4.2; Range: 0.0-3.6; Abnormal: Above high normal; Units: NG/ML; Status: F Test: MB/CK RELATIVE INDEX; Value: 7.92; Range: < OR =4; Abnormal: Above high normal; Status: F Test: TROPONIN I; Value: 0.25; Range: < 0.10; Abnormal: Above high normal; Units: NG/ML; Status: F Test Note: ; DIAGNOSIS CRITERIA MMB ng/ml Relative Index (RI) NON-AMI < or = 5 N/A MAYNARD ZONE > 5 < or = 4 AMI > 5 > 4 Lab Order: Lactic Acid (Maynard tube on ice); [facility] 10/19/16 13:42 Test: LACTIC ACID LEVEL, LACTATE; Value: 3.7; Range: 0.4-2.0; Abnormal: Above upper panic limits; Units: MMOL/L; Status: F Lab Order: CBC WITH DIFFERENTIAL; [facility]24 Test: WHITE BLOOD COUNT; Value: 8.3; Range: 4.0-10.0; Units: K/mm3; Status: F Test: RED BLOOD COUNT; Value: 4.14; Range: 4.30-6.10; Abnormal: Below low normal; Units: M/mm3; Status: F Test: HEMOGLOBIN; Value: 12.9; Range: 14.0-18.0; Abnormal: Below low normal; Units: g/dl; Status: F Test: HEMATOCRIT; Value: 38.0; Range: 42.0-52.0; Abnormal: Below low normal; Units: %; Status: F Test: MEAN CORPUSCULAR VOLUME; Value: 91.8; Range: 80.0-96.0; Units: fl; Status: F Test: MEAN CORPUSCULAR HEMOGLOBIN; Value: 31.2; Range: 27.0-33.0; Units: pg; Status: F Test: MEAN CORPUSCULAR HGB CONC; Value: 33.9; Range: 32.0-36.5; Units: g/dl; Status: F Test: RED CELL DISTRIBUTION WIDTH; Value: 15.0; Range: 11.5-14.5; Abnormal: Above high normal; Units: %; Status: F Test: PLATELET COUNT, AUTOMATED; Value: 230; Range: 150-450; Units: k/mm3; Status: F Test: NEUTROPHILS %; Value: 83.8; Range: 36.0-66.0; Abnormal: Above high normal; Units: %; Status: F Test: LYMPH %; Value: 11.6; Range: 24.0-44.0; Abnormal: Below low normal; Units: %; Status: F Test: MONO %; Value: 3.0; Range: 0.0-5.0; Units: %; Status: F Test: EOS %; Value: 0.3; Range: 0.0-3.0; Units: %; Status: F Test: BASO %; Value: 0.1; Range: 0.0-1.0; Units: %; Status: F Test: LARGE UNSTAINED CELL %; Value: 1.1; Range: 0.0-4.0; Units: %; Status: F Test: NEUTROPHILS #; Value: 6.9; Range: 1.8-7.7; Units: K/mm3; Status: F Test: LYMPH #; Value: 1.0; Range: 1.5-4.5; Abnormal: Below low normal; Units: K/mm3; Status: F Test: MONO #; Value: 0.3; Range: 0.0-0.8; Units: K/mm3; Status: F Test: EOS #; Value: 0.0; Range: 0.0-0.50; Units: K/mm3; Status: F Test: BASO #; Value: 0.0; Range: 0.0-0.2; Units: K/mm3; Status: F Test: LARGE UNSTAINED CELL #; Value: 0.1; Range: 0.0-0.4; Units: K/mm3; Status: F Lab Order: COMPLETE COMPHRENSIVE METABOLI; SPEC'M 10/20/16 07:24 Test: GLUCOSE, FASTING; Value: 136; Range: 83-110; Abnormal: Above high normal; Units: MG/DL; Status: F Test: BLOOD UREA NITROGEN; Value: 23; Range: 7-18; Abnormal: Above high normal; Units: MG/DL; Status: F Test: CREATININE FOR GFR; Value: 1.10; Range: 0.70-1.30; Units: MG/DL; Status: F Test: GLOMERULAR FILTRATION RATE; Value: > 60.0; Range: >35; Status: F Test: SODIUM LEVEL; Value: 140; Range: 136-145; Units: MEQ/L; Status: F Test: POTASSIUM SERUM; Value: 3.5; Range: 3.5-5.1; Units: MEQ/L; Status: F Test: CHLORIDE LEVEL; Value: 102; Range: 98-107; Units: MEQ/L; Status: F Test: CARBON DIOXIDE LEVEL; Value: 26; Range: 21-32; Units: MEQ/L; Status: F Test: ANION GAP; Value: 12; Range: 8-16; Units: MEQ/L; Status: F Test: CALCIUM LEVEL; Value: 8.1; Range: 8.8-10.2; Abnormal: Below low normal; Units: MG/DL; Status: F Test: AST/SGOT; Value: 34; Range: 15-37; Units: U/L; Status: F Test: ALT/SGPT; Value: 32; Range: 12-78; Units: U/L; Status: F Test: ALKALINE PHOSPHATASE; Value: 96; Range: 45-117; Units: U/L; Status: F Test: BILIRUBIN,TOTAL; Value: 1.1; Range: 0.2-1.0; Abnormal: Above high normal; Units: MG/DL; Status: F Test: TOTAL PROTEIN; Value: 7.4; Range: 6.4-8.2; Units: GM/DL; Status: F Test: ALBUMIN; Value: 2.1; Range: 3.2-5.2; Abnormal: Below low normal; Units: GM/DL; Status: F Test: ALBUMIN/GLOBULIN RATIO; Value: 0.40; Range: 1.00-1.93; Abnormal: Below low normal; Status: F Test Note: ; Units are mL/min/1.73 m2 Chronic Kidney Disease Staging per NKF: Stage I & II GFR >=60 Normal to Mildly Decreased Stage III GFR 30-59 Moderately Decreased Stage IV GFR 15-29 Severely Decreased Stage V GFR <15 Very Little GFR Left ESRD GFR <15 on SHOE HANDLER Lab Order: TROPONIN; SPEC'M 10/19/16 23:08 Test: TROPONIN I; Value: 0.23; Range: < 0.10; Abnormal: Above high normal; Units: NG/ML; Status: F Test Note: ; Troponin I Reference Interval for [employer] LOCI: 99th Percentile= 0.00-0.045 ng/ml Risk Stratification: <= 0.10 ng/ml Decreased Risk for Adverse Clinical Events. 0.10-1.50 ng/ml Increased Risk for Adverse Clinical Events. Evaluation of additional criterion and/or repeat testing in 2-6 hours is suggested to rule out myocardial damage. >= 1.50 ng/ml Indicative of Myocardial Injury. Lab Order: LACTIC ACID LEVEL, LACTATE; SPEC'M 10/19/16 23:08 Test: LACTIC ACID LEVEL, LACTATE; Value: 1.4; Range: 0.4-2.0; Units: MMOL/L; Status: F Lab Order: SPUTUM CULTURE AND GRAM STAIN; SPEC'M 10/19/16 20:52 Test: GRAM STAIN; Value: GRAM STAIN RESULT; Status: F Test: GRAM STAIN; Value: QUALITY: GOOD; Status: F Test: GRAM STAIN; Value: MODERATE EPITHELIAL CELLS; Status: F Test: GRAM STAIN; Value: FEW WBCS; Status: F Test: GRAM STAIN; Value: MANY GRAM POSITIVE COCCI; Status: F Test: GRAM STAIN; Value: MANY GRAM NEGATIVE RODS; Status: F Test: GRAM STAIN; Value: MANY GRAM POSITIVE RODS; Status: F Lab Order: ARTERIAL BLOOD GAS; 10/20/16 04:47 Test: ABG pH (ARTERIAL); Value: 7.516; Range: 7.350-7.450; Abnormal: Above high normal; Units: UNITS; Status: F Test: ABG PARTIAL PRESSURE CO2; Value: 28.9; Range: 35.0-45.0; Abnormal: Below low normal; Units: mmHg; Status: F Test: ABG PARTIAL PRESSURE O2; Value: 55.9; Range: 75.0-100.0; Abnormal: Below low normal; Units: mmHg; Status: F Test: ABG TOTAL CO2; Value: 23.7; Range: 23.0-31.0; Units: MEQ/L; Status: F Test: ABG HCO3; Value: 22.9; Range: 22.0-26.0; Units: MEQ/L; Status: F Test: ABG BASE EXCESS; Value: 0.9; Range: -2.0-2.0; Status: F Test: ABG STANDARD HCO3; Value: 25.1; Range: 22.0-26.0; Units: MEQ/L; Status: F Test: ABG O2 SATURATION; Value: 89.2; Range: 95.0-99.0; Abnormal: Below low normal; Units: %; Status: F Lab Order: MAGNESIUM LEVEL; 10/20/16 07:24 Test: MAGNESIUM LEVEL; Value: 2.0; Range: 1.8-2.4; Units: MG/DL; Status: F Lab Order: TROPONIN; 10/20/16 07:24 Test: TROPONIN I; Value: 0.20; Range: < 0.10; Abnormal: Above high normal; Units: NG/ML; Status: F Test Note: ; Troponin I Reference Interval for [employer] LOCI: 99th Percentile= 0.00-0.045 ng/ml Risk Stratification: <= 0.10 ng/ml Decreased Risk for Adverse Clinical Events. 0.10-1.50 ng/ml Increased Risk for Adverse Clinical Events. Evaluation of additional criterion and/or repeat testing in 2-6 hours is suggested to rule out myocardial damage. >= 1.50 ng/ml Indicative of Myocardial Injury. Lab Order: URINALYSIS; SPEC'M 10/20/16 16:57 Test: APPEARANCE, URINE; Value: CLEAR; Range: CLEAR; Status: F Test: COLOR, URINE; Value: YELLOW; Range: YELLOW; Status: F Test: PH,URINE; Value: 5.0; Range: 5.0-9.0; Units: UNITS; Status: F Test: SPECIFIC GRAVITY URINE AUTO; Value: 1.010; Range: 1.002-1.035; Status: F Test: PROTEIN, URINE AUTO; Value: NEGATIVE; Range: NEGATIVE; Units: mg/dL; Status: F Test: GLUCOSE, URINE (UA) AUTO; Value: NEGATIVE; Range: NEGATIVE; Units: mg/dL; Status: F Test: KETONE, URINE AUTO; Value: NEGATIVE; Range: NEGATIVE; Units: mg/dL; Status: F Test: UROBILINOGEN, URINE AUTO; Value: 0.2; Range: 0.0-2.0; Units: mg/dL; Status: F Test: BILIRUBIN, URINE AUTO; Value: NEGATIVE; Range: NEGATIVE; Status: F Test: NITRITE, URINE AUTO; Value: NEGATIVE; Range: NEGATIVE; Status: F Test: LEUKOCYTE ESTERASE, URINE AUTO; Value: NEGATIVE; Range: NEGATIVE; Status: F Test: BLOOD, URINE BLOOD; Value: 2+; Range: NEGATIVE; Abnormal: Above high normal; Status: F Test: WBC, URINE AUTO; Value: 1; Range: 0-3; Units: /HPF; Status: F Test: RBC, URINE AUTO; Value: 16; Range: 0-3; Abnormal: Above high normal; Units: /HPF; Status: F Test: BACTERIA, URINE AUTO; Value: NEGATIVE; Range: NEGATIVE; Status: F Test: SQUAMOUS EPITHELIAL CELL UR AU; Value: 0; Range: 0-6; Units: /HPF; Status: F Test: HYALINE CAST, URINE AUTO; Value: 0; Range: 0-1; Units: /LPF; Status: F Lab Order: C REACTIVE PROTEIN QUANTITATIV; SPEC'M 10/20/16 07:24 Test: C REACTIVE PROTEIN QUANTITATIV; Value: 17.80; Range: 0.00-0.30; Abnormal: Above high normal; Units: MG/DL; Status: F Lab Order: ARTERIAL BLOOD GAS; SPEC'M 10/20/16 17:10 Test: ABG pH (ARTERIAL); Value: 7.520; Range: 7.350-7.450; Abnormal: Above high normal; Units: UNITS; Status: F Test: ABG PARTIAL PRESSURE CO2; Value: 31.9; Range: 35.0-45.0; Abnormal: Below low normal; Units: mmHg; Status: F Test: ABG PARTIAL PRESSURE O2; Value: 77.9; Range: 75.0-100.0; Units: mmHg; Status: F Test: ABG TOTAL CO2; Value: 26.4; Range: 23.0-31.0; Units: MEQ/L; Status: F Test: ABG HCO3; Value: 25.5; Range: 22.0-26.0; Units: MEQ/L; Status: F Test: ABG BASE EXCESS; Value: 3.1; Range: -2.0-2.0; Abnormal: Above high normal; Status: F Test: ABG STANDARD HCO3; Value: 27.2; Range: 22.0-26.0; Abnormal: Above high normal; Units: MEQ/L; Status: F Test: ABG O2 SATURATION; Value: 95.5; Range: 95.0-99.0; Units: %; Status: F Radiology Order: Chest, 2 View (pa\E\lat) Test: Chest, 2 View (pa\E\lat) REASON FOR EXAMINATION: Shortness of Breath; Chest x-ray: Two views.; ; History: Shortness of breath.; ; Comparison chest x-ray October 15, 2016.; ; Findings: EKG monitoring electrodes and oxygen delivery tubing are seen. There; is a pattern of diffuse extensive interstitial opacification of the lung martínez; particularly the left base right upper lung zone and right base area. There is; some sparing in the left upper lung zone. Pattern is radiographically unchanged; from October 15, 2016. It is much more pronounced than the interstitial fibrosis; pattern seen on February 21, 2016. Heart is not enlarged. No pleural effusion is; seen.; ; Impression:; ; Progressive and now marked diffuse interstitial lung disease; fibrosis versus; other. Some sparing in the left upper lung zone. No significant change from the; most recent prior study of October 15, 2016.; ; ; Signed by; Joaquin Sanders MD 10/19/2016 02:50 P; Radiology Order: EKG-ADULT Test: EKG-ADULT REASON FOR EXAMINATION: Shortness of Breath; Stationary ECG Study; 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; : 1935 Requested By: VIJI MOREJON; Order Number: [id number] Reading MD: Derek Blake; Measurements; Intervals [place]; Rate: 115 P: 51; [place]: 158 QRS: 28; QRSD: 84 T: 20; QT: 315; QTc: 437; Interpretive Statements; SINUS TACHYCARDIA WITH FREQUENT SUPRAVENTRICULAR PREMATURE COMPLEXES; NONSPECIFIC T-WAVE ABNORMALITY; POSSIBLE PRIOR INFERIOR INFARCT; SIMILAR TO 08/18/15 EXCEPT RATE; Electronically Signed On 10-19-2016 17:39:00 EST by Derek Blake; Radiology Order: CT Chest Angio R/O PE Test: CT Chest Angio R/O PE REASON FOR EXAMINATION: Shortness of Breath; CT of the chest, CT pulmonary angiography with IV contrast:; ; Comparison is 2015.; ; There are no emboli in the pulmonary trunk or in the central pulmonary arteries.; There are no emboli in the pulmonary lobe or segment branches.; ; There is chronic advanced interstitial fibrosis, also present on the comparison; study. However, the study today. There are bilateral superimposed alveolar; densities compatible with acute infiltrates suggesting acute on chronic and; disease bilaterally. There are small bilateral pleural effusions, also not; present previously.; ; The thoracic aorta is unremarkable except for calcified atheroma. Cardiac size; is enlarged . There are no pericardial effusions.; ; There is mediastinal adenopathy, similar to the comparison study.; ; Upper abdomen:; ; Cholelithiasis is again identified was also present previously. Visualized; portions of the liver, pancreas, spleen, adrenals and renal upper poles are; unchanged.; ; Impression:; ; ; ; Chronic interstitial fibrosis. New alveolar densities extensively throughout; both lungs today suggesting acute infiltrates on chronic fibrosis. New small; bilateral pleural effusions.; ; Chronic mediastinal lymphadenopathy. Cholelithiasis, also present previously.; Cardiomegaly without pericardial effusion.; ; ; Signed by; Tam Piedra MD 10/19/2016 04:44 P; Radiology Order: PORTABLE CHEST X-RAY Test: PORTABLE CHEST X-RAY REASON FOR EXAMINATION: hypoxia; Portable chest x-ray: Single view.; ; History: Hypoxia.; ; Comparison chest x-ray October 19, 2016.; ; Findings: EKG monitoring electrodes overlie the chest. There is extensive; interstitial lung disease throughout the lung martínez with some sparing in the; left apex again noted essentially unchanged. Mild cardiomegaly unchanged.; ; Impression:; ; Extensive diffuse interstitial lung disease essentially unchanged from the; previous day's study.; ; ; Signed by; Joaquin Sanders MD 10/20/2016 08:27 A; Outcome: 10/19 18:26 Decision to Hospitalize by Provider. le 22:55 Discharge Assessment: Patient awake, alert and oriented x 3. No cognitive and/or cf2 functional deficits noted. Patient verbalized understanding of disposition instructions. Patient awake and alert. Oriented to person, place and time. patient administered narcotics - no. The following High Risk Discharge criteria are identified: None. Admitted to PCU. Condition: improved. CT Study completed. Admission hand-off: Report called to report to hold nurse. Property :Personal belongings accompany Pt. 10/20 17:43 Patient left the ED. aa3 Signatures: Dispatcher [employer] EDMS Derek Blake MD MD pc Sleeman, Kacey, RN RN kcs Barnhardt, Gloria, Reg Reg gb Neha Nguyen, Reg Reg lg Viji Lassiter, MANAGER CHILD MANAGER CHILD le Flash Barker, DRAWING TRACER DRAWING TRACER dd6 Ashlyn VelaRN RN rs3 Spencer Chand RN RN ml6 Janak Brewer bb3 Tiffany Topete, DRAWING TRACER DRAWING TRACER oziel Giovana Faith, DRAWING TRACER DRAWING TRACER ct3 Gladis Osman RN RN sls1 Gian Vaughn,RT RT rs5 Susana Richardson, DRAWING TRACER DRAWING TRACER tmm1 Eduardo Rios,CHANA RN Kamille Ramirez,RN RN aa3 Thomas Brothers, DRAWING TRACER DRAWING TRACER aminataf Salima Arthur,RN RN urmilad Kuldip Vu,RN RN mb9 Ru Taylor,RT RT cs15 Eli Flores,RN RN cf2 MTDD
[2016-10-20] MEDS: PIPERACILLIN/TAZOBACTAM SOD 3.375 GM in D5W MINI-BAG PLUS 50 ML IV SCH (18:07)
[2016-10-20 21:32] LABS: ABG BASE EXCESS -1.4 (-2.0-2.0); ABG HCO3 20.8 MEQ/L (22.0-26.0); ABG PARTIAL PRESSURE CO2 27.7 mmHg (35.0-45.0); ABG PARTIAL PRESSURE O2 90.2 mmHg (75.0-100.0); ABG STANDARD HCO3 23.3 MEQ/L (22.0-26.0); ABG TOTAL CO2 21.6 MEQ/L (23.0-31.0); ABG pH (ARTERIAL) 7.493 UNITS (7.350-7.450)
[2016-10-20] MEDS: AZITHROMYCIN INJ 500 MG, VIAL MATE ADAPTER 1 EACH in D5W 250 ML IV SCH (21:34)
[2016-10-21] MEDS: NITROGLYCERIN 2% OINT 1 GM *U/D* PKT TOP SCH ×5 (00:13→23:59)
[2016-10-21] MEDS: FUROSEMIDE 40 MG/4 ML VIAL (J1940) IV SCH ×2 (00:13→04:59)
[2016-10-21] MEDS: PIPERACILLIN/TAZOBACTAM SOD 3.375 GM in D5W MINI-BAG PLUS 50 ML IV SCH ×5 (00:14→23:29)
[2016-10-21 04:00] VITALS: BP 141/63
[2016-10-21 05:06] LABS: ABG BASE EXCESS 7.4 (-2.0-2.0); ABG HCO3 30.2 MEQ/L (22.0-26.0); ABG PARTIAL PRESSURE O2 56.2 mmHg (75.0-100.0); ABG STANDARD HCO3 31.1 MEQ/L (22.0-26.0); ABG TOTAL CO2 31.3 MEQ/L (23.0-31.0); ABG pH (ARTERIAL) 7.541 UNITS (7.350-7.450)
[2016-10-21] MEDS: methylPREDNISolone INJ 125 MG/2 ML VIAL (J2930) IV SCH ×2 (05:09→18:47)
[2016-10-21] MEDS: LEVOTHYROXINE 0.075 MG TAB (75 MCG) PO SCH (05:10)
[2016-10-21 06:24] LABS: BASO % 0.1 % (0.0-1.0); EOS % 0.1 % (0.0-3.0); LARGE UNSTAINED CELL # 0.1 K/mm3 (0.0-0.4); LARGE UNSTAINED CELL % 0.9 % (0.0-4.0); LYMPH # 1.1 K/mm3 (1.5-4.5); MEAN CORPUSCULAR HEMOGLOBIN 30.7 pg (27.0-33.0); MEAN CORPUSCULAR HGB CONC 34.1 g/dl (32.0-36.5); MONO # 0.2 K/mm3 (0.0-0.8); MONO % 2.3 % (0.0-5.0); NEUTROPHILS % 81.6 % (36.0-66.0); PLATELET COUNT, AUTOMATED 236 k/mm3 (150-450); RED CELL DISTRIBUTION WIDTH 14.8 % (11.5-14.5); WHITE BLOOD COUNT 7.4 K/mm3 (4.0-10.0)
[2016-10-21 06:41] LABS: ALBUMIN 2.1 GM/DL (3.2-5.2); ALBUMIN/GLOBULIN RATIO 0.36 (1.00-1.93); BILIRUBIN,TOTAL 1.4 MG/DL (0.2-1.0); CALCIUM LEVEL 7.7 MG/DL (8.8-10.2); CREATININE FOR GFR 1.43 MG/DL (0.70-1.30); GLOMERULAR FILTRATION RATE 50.7 (>35); TOTAL PROTEIN 7.9 GM/DL (6.4-8.2)
[2016-10-21] MEDS ORDERED: POTASSIUM CHLORIDE 10 MEQ SR TABLET PO ONE ×2 (07:00→08:45)
[2016-10-21] MEDS ORDERED: SODIUM CHLORIDE 0.9% 1000 ML IV ONE (07:00)
[2016-10-21 08:00] VITALS: BP 124/62
[2016-10-21 09:11] LABS: VENOUS O2 SATURATION 95.8 % (60.0-80.0); VENOUS PARTIAL PRESSURE CO2 43.7 mmHg (38.0-50.0); VENOUS PARTIAL PRESSURE O2 83.2 mmHg (30.0-50.0); VENOUS STANDARD HCO3 31.8 MEQ/L; VENOUS TOTAL CO2 33.7 MEQ/L (24.0-28.0)
[2016-10-21] MEDS: MULTIVITAMINS/MINERALS THERAP 1 TAB PO SCH (09:23)
[2016-10-21] MEDS: PHENAZOPYRIDINE 100 MG TAB PO SCH ×3 (09:23→21:19)
--- NOTE | 2016-10-21 09:41 | REP ---
Portable chest x-ray: Semi-erect AP view. History: Hypoxia. Comparison chest x-ray is from October 20, 2016. Findings: There are extensive interstitial infiltrates essentially diffusely in the lung martínez. There is some sparing in the left apex and right base. Findings are unchanged from yesterday's radiograph. EKG monitoring electrodes and oxygen tubing are again seen. Impression: Extensive interstitial infiltrates again noted. Signed by Joaquin Sanders MD 10/21/2016 06:32 P
[2016-10-21 11:55] LABS: CALCIUM LEVEL 7.7 MG/DL (8.8-10.2); CREATININE FOR GFR 1.7 MG/DL (0.70-1.30); GLOMERULAR FILTRATION RATE 41.5 (>35); POTASSIUM SERUM 3.3 MEQ/L (3.5-5.1)
[2016-10-21 12:00] VITALS: BP 153/79
--- NOTE | 2016-10-21 12:58 | CR ---
DATE OF CONSULTATION: 10/21/2016 CHIEF COMPLAINT: I was asked by Dr. Echevarria to evaluate Mr. Lozano for acute on chronic hypoxemic respiratory failure. HISTORY OF PRESENT ILLNESS: Mr. 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 He also has obstructive sleep apnea. The history I obtained from Mr. Lozano is different from that contained in the admission note. Mr. Lozano reports to me that he bought an adjustable single bed. Apparently, the bed is high. 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 He injured his head, right shoulder, ribs, and hip on that side. He therefore proceeded to the emergency department. While in the emergency department, he ended up having a chest CT scan done, which showed new alveolar infiltrates compared to a chest CT scan done in 2016. Mr. Lozano denies any change in his dyspnea on exertion. He has a cough that sometimes in the morning is productive of sputum with a tinge of blood and is yellow, but more commonly clear during the day. He reports that is unchanged. No chest pain except where he felt his ribs are sore. No wheezing. No paroxysmal nocturnal dyspnea (PND) or orthopnea. Prior to getting the adjustable bed he was sleeping fine. He has occasional postnasal drip. No gastroesophageal reflux disease (GERD) symptoms. No lower extremity edema. When he was seen by Dr. Rushing in the fall, he had sputum that was positive for Klebsiella and was treated with Ceftin. He has no other antibiotic treatments. He has had no known exposures to ill persons. No persistent fevers, chills, or drenching night sweats. No intercurrent upper respiratory infections. He tells me he did not have acute pulmonary symptoms when he presented to the emergency department. Since his last visit to pulmonary clinic, he started taking prednisone 10 mg by mouth daily. He is not certain as to whether that is beneficial. He tells me he wears his continuous positive airway pressure (CPAP) at night. He has also taken to wearing his 's oxygen when he is sitting still, but not wearing it when he is ambulating. I reviewed the emergency department visit and they state that when he presented on 10/19/2016, that he had fallen on the previous Wednesday and had increasing shortness of breath for four days after the fall. PAST MEDICAL HISTORY: 1. Pulmonary fibrosis, usual interstitial pneumonia (UIP). a. TLC f3.88 (66%) and DLCO 3.81 (17%) on pulmonary function test 07/15/2016. DLCO 09/03/2016 was 5.60 (26%). 2. Obstructive sleep apnea. a. Severe per polysomnogram 10/29/1998. b. Event sublated on continuous positive airway pressure (CPAP) at 10 cm of water pressure with last confirmatory study 04/19/2006. 3. Hypothyroidism. 4. Hypertension, controlled off medications. 5. Carotid artery disease. 6. Status post eye surgery. 7. Status post hemorrhoidectomy. 8. History of tobacco usage. ALLERGIES: No known drug allergies. MEDICATIONS: - levothyroxine 75 mcg by mouth daily - possibly prednisone 10 mg by mouth daily - Continuous positive airway pressure (CPAP) at 10 cm of water pressure SOCIAL HISTORY: Lives at home with his . No current tobacco or alcohol usage. FAMILY HISTORY: Noncontributory to this admission. REVIEW OF SYSTEMS: Per history of present illness (HPI). Remainder of pertinent review of systems are negative. PHYSICAL EXAMINATION: GENERAL: Mr. Lozano is lying in bed in no acute distress. He is wearing oxygen. He can complete full sentences. He has an occasional harsh dry-sounding cough during the evaluation. VITAL SIGNS: Temperature 96.8, pulse 67, respiratory rate 18, blood pressure 124/62, mean arterial pressure (MAP) 82, SpO2 93%, FiO2 4 liters. (NOTE: SpO2 97% on room air 09/03/2016). HEENT: Anicteric. Nares: Patent bilaterally. Moist mucosa. Oropharynx: Clear, no lesions. No evidence of drainage in the posterior pharynx. Fair dentition. Mallampati Class III. NECK: Supple without jugular venous distention (JVD), thyromegaly or masses. Trachea is midline. CHEST: Normal shaped to mildly increased anteroposterior (AP) diameter. LUNGS: Symmetric excursion. Mildly diminished air entry. No wheeze or rhonchi. There are bilateral Velcro crackles approximately half of the way up. Normal inspiratory to expiratory ratio (I:E). No accessory muscle usage or contractions. CARDIOVASCULAR: Regular rate and rhythm. Normal S1, S2. 2/6 systolic murmur heard best along the left upper sternal border. No rub or gallop. ABDOMEN: Positive bowel sounds. Soft, nondistended, nontender. No hepatosplenomegaly or masses appreciated. EXTREMITIES: Warm and well perfused. Without clubbing, cyanosis or edema. Palpable pedal pulses bilaterally. LABORATORY DATA: Complete blood count (CBC) from this morning showed a hemoglobin 13.1, hematocrit 38.4, platelet count 236,000, white blood cell count 7400, with a differential of 82% neutrophils, 15% lymphocytes, 2% monocytes. Chemistry: Sodium 140, potassium 3.0, chloride 97, bicarbonate 34, anion gap 9, BUN 31, creatinine 1.4, glucose 170, calcium 7.7, magnesium 2.0. Total bilirubin 1.4, AST 29, ALT 36, alkaline phosphatase 86, total protein 7.9, albumin 2.1, lactic acid 1.5. The most recent troponin-I is 0.19, with his peak being 0.25. C-Reactive Protein (CRP) 24.5. D-dimer on presentation was 2481. Arterial blood gas, with the most recent being this morning, was 7.51/36/56 with a measured saturation of 89% and a base excess of 7.4, I believe, but that was drawn on 3 or 4 liters via nasal cannula. I reviewed his chest CT scan, as well as the report on 10/19/2015. I reviewed the CT scan with Dr. Rushing. That CT scan showed enlarged cardiac silhouette and pulmonary vascular shadow. There is mediastinal adenopathy that was unchanged compared to a study from 06/2016. There is bilateral interstitial fibroses with a peripheral predominance with honeycombing. There was increased alveolar infiltrates bilaterally. IMPRESSION: 1. Acute and chronic hypoxemic respiratory failure. I suspect that at baseline , that this is predominantly secondary to his underlying usual interstitial pneumonia (UIP). As for the change, where he is now requiring oxygen, I suspect that is secondary to pulmonary edema. He has alveolar infiltrates and an elevated D-dimer. No history to suggest an infectious process. 2. Usual interstitial pneumonia (UIP)/Pulmonary fibrosis, advanced. 3. Dyspnea on exertion. This is likely in large part related to his pulmonary fibrosis; however, he has risk factors for development of pulmonary hypertension , including his underlying lung disease, as well as sleep apnea, that it has been untreated at times. If this is present, it is likely contributing. He also may have had a cardiac event between the time that he presented to the emergency room and his fall, so a change in cardiac function would be in the differential. 4. Obstructive sleep apnea, treated with 10 cm water pressure as an outpatient. 5. Hypothyroidism. RECOMMENDATIONS: 1. I have asked the patient's family to bring his continuous positive airway pressure (CPAP) device to the hospital and to institute it when it arrives. 2. I previously recommended to Dr. Echevarria that he consider diuresis. 3. While I do note feel that his change is of infectious origin, it is reasonable to continue on antibiotics, at least until cultures are back. With his fall, it is possible he aspirated at that time, but no significant history suggestive of infection nor is his presenting WBC. 4. There is no significant role for steroids in pulmonary fibrosis; however, if he was on prednisone as an outpatient and it helped him feel better (he is not clear on it), could consider restarting that or deferring that decision to Dr. Rushing, who will be following me on service. 5. We would continue to supplement oxygen, as you are doing. Thank you for this consult and we will continue to follow with you. GUILLERMINA
[2016-10-21 14:44] LABS: CALCIUM LEVEL 7.8 MG/DL (8.8-10.2); CREATININE FOR GFR 1.57 MG/DL (0.70-1.30); GLOMERULAR FILTRATION RATE 45.5 (>35); MAGNESIUM LEVEL 2.2 MG/DL (1.8-2.4); POTASSIUM SERUM 3.6 MEQ/L (3.5-5.1)
--- NOTE | 2016-10-21 14:51 | IPNPDOC ---
Text Note Date of Service The patient was seen on 10/21/16 at 14:36. NOTE Subjective: Patient states his shortness of breath has improved. He did have an episode of lethargy and was difficult to arouse last night. Currently alert. Does not remember the episode from last night. Objective: Vitals: (see below) General: No acute distress, laying comfortably in bed. HEENT: Moist mucous membranes. Neck: No JVD or lymphadenopathy Cardiac: RRR, No murmurs Pulm: Coarse and fine crackles b/l. No wheezing, mild rhonchi bilaterally. Abd: NT/ND + BS Ext: No edema or cyanosis Labs (see below) Images: Chest x-ray on 10/20/16 Impression: Progressive and now marked diffuse interstitial lung disease; fibrosis versus other. Some sparing in the left upper lung zone. No significant change from the most recent prior study of October 15, 2016. CTA Chest 10/20/16 Impression:Chronic interstitial fibrosis. New alveolar densities extensively throughout both lungs today suggesting acute infiltrates on chronic fibrosis. New small bilateral pleural effusions. Chronic mediastinal lymphadenopathy. Cholelithiasis, also present previously. Cardiomegaly without pericardial effusion. CXR 10/21/16 Impression: Extensive interstitial infiltrates again noted. Assessment/Plan 1. Acute hypoxic respiratory failure, with underlying pulmonary fibrosis. This does appear to be mixed picture with likely underlying pneumonia as well as pulmonary congestion. Patient is currently on broad-spectrum antibiotics, sputum and blood cultures are pending. The patient also appears to have pulmonary congestion on presentation as well and he has been diuresed at a -2 L balance today. His creatinine has started to rise afterwards Lasix has been temporarily held. He also has an echocardiogram pending. Appreciate Dr. Velásquez's input. 2. Elevated troponin- this is likely secondary to demand ischemia. No significance ST changes on EKG. It was normal with her this is secondary to an infectious process for which the patient is being treated with broad-spectrum antibiotics versus strain from CHF. His troponin is trending down. Will need a cardiology evaluation outpatient. His echocardiogram is also pending. 3. Pulmonary fibrosis- patient follows up with Dr. Rushing outpatient. 4. Hypothyroidism- continue home meds 5. Acute kidney injury- likely secondary to volume depletion. Will continue to hold Lasix for now and monitor. 6. NATHAN on CPAP DVT prophy: Heparin subcutaneous Patient is a DNI. He would like CPR/shocks if needed. VS,Fishbone, I+O VS, Fishbone, I+O Laboratory Tests 10/21/16 05:43 Calcium Level 7.7 L, Aspartate Amino Transf (AST/SGOT) 29, Alanine Aminotransferase (ALT/SGPT) 36, Alkaline Phosphatase 86, Total Bilirubin 1.4 H, Total Protein 7.9, Albumin 2.1 L, Red Blood Count 4.27 L, Mean Corpuscular Volume 90.0, Mean Corpuscular Hemoglobin 30.7, Mean Corpuscular Hemoglobin Concent 34.1, Red Cell Distribution Width 14.8 H, Neutrophils (%) (Auto) 81.6 H , Lymphocytes (%) (Auto) 15.0 L, Monocytes (%) (Auto) 2.3, Eosinophils (%) (Auto ) 0.1, Basophils (%) (Auto) 0.1, Neutrophils # (Auto) 6.0, Lymphocytes # (Auto) 1.1 L, Monocytes # (Auto) 0.2, Eosinophils # (Auto) 0.0, Basophils # (Auto) 0.0 10/21/16 10:56 Calcium Level 7.7 L Vital Signs Date Time Temp Pulse Resp B/P Pulse Ox O2 Delivery O2 Flow Rate FiO2 10/21/16 12:00 97.1 88 18 153/79 96 Nasal Cannula 4.0 10/21/16 04:00 35 I&O- Last 24 Hours up to 6 AM 10/21/16 06:00 Intake Total 1320 ml Output Total 3175 ml Balance -1855 ml ALETHA MENG MD Oct 21, 2016 14:51
[2016-10-21] MEDS: VANCOMYCIN HCL 1,000 MG, VIAL MATE ADAPTER 1 EACH in D5W 250 ML IV SCH (15:09)
[2016-10-21] MEDS: HEPARIN SOD (PORCINE) 5000 UNITS/ML VIAL SQ SCH ×2 (15:09→21:19)
[2016-10-21 16:00] VITALS: BP 147/68
--- NOTE | 2016-10-21 17:58 | ECGEPIP ---
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 NO SIGNIFICANT CHANGES BUT RELATED PVCs Electronically Signed On 10-21-2016 17:58:13 EST by Quique Mello
--- NOTE | 2016-10-21 18:27 | ECGEPIP ---
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
[2016-10-21 19:27] VITALS: BP 123/63
[2016-10-21 19:59] LABS: PHOSPHORUS LEVEL 3.3 MG/DL (2.5-4.9)
[2016-10-21] MEDS: AZITHROMYCIN INJ 500 MG, VIAL MATE ADAPTER 1 EACH in D5W 250 ML IV SCH (21:19)
[2016-10-21 23:37] VITALS: BP 134/78
[2016-10-22 05:04] VITALS: BP 125/58
[2016-10-22] MEDS: LEVOTHYROXINE 0.075 MG TAB (75 MCG) PO SCH (05:18)
[2016-10-22] MEDS: PIPERACILLIN/TAZOBACTAM SOD 3.375 GM in D5W MINI-BAG PLUS 50 ML IV SCH (05:18)
[2016-10-22] MEDS: methylPREDNISolone INJ 125 MG/2 ML VIAL (J2930) IV SCH (05:18)
[2016-10-22] MEDS: HEPARIN SOD (PORCINE) 5000 UNITS/ML VIAL SQ SCH ×3 (05:19→21:37)
[2016-10-22] MEDS: NITROGLYCERIN 2% OINT 1 GM *U/D* PKT TOP SCH ×3 (05:19→18:47)
[2016-10-22 05:37] LABS: BASO # 0.1 K/mm3 (0.0-0.2); BASO % 0.5 % (0.0-1.0); EOS % 0.3 % (0.0-3.0); LARGE UNSTAINED CELL # 0.1 K/mm3 (0.0-0.4); LARGE UNSTAINED CELL % 0.5 % (0.0-4.0); LYMPH # 1.2 K/mm3 (1.5-4.5); LYMPH % 7.6 % (24.0-44.0); MEAN CORPUSCULAR HEMOGLOBIN 30.8 pg (27.0-33.0); MEAN CORPUSCULAR HGB CONC 33.1 g/dl (32.0-36.5); MONO # 0.2 K/mm3 (0.0-0.8); MONO % 1.7 % (0.0-5.0); NEUTROPHILS # 12.8 K/mm3 (1.8-7.7); NEUTROPHILS % 89.4 % (36.0-66.0); PLATELET COUNT, AUTOMATED 194 k/mm3 (150-450); RED CELL DISTRIBUTION WIDTH 15.5 % (11.5-14.5); WHITE BLOOD COUNT 14.4 K/mm3 (4.0-10.0)
[2016-10-22 05:48] LABS: ALBUMIN 1.9 GM/DL (3.2-5.2); ALBUMIN/GLOBULIN RATIO 0.4 (1.00-1.93); BILIRUBIN,TOTAL 0.6 MG/DL (0.2-1.0); CALCIUM LEVEL 7.9 MG/DL (8.8-10.2); CREATININE FOR GFR 1.27 MG/DL (0.70-1.30); GLOMERULAR FILTRATION RATE 58.1 (>35); MAGNESIUM LEVEL 2.2 MG/DL (1.8-2.4); POTASSIUM SERUM 3.3 MEQ/L (3.5-5.1); TOTAL PROTEIN 6.7 GM/DL (6.4-8.2)
[2016-10-22] MEDS: PHENAZOPYRIDINE 100 MG TAB PO SCH ×3 (07:44→21:37)
[2016-10-22] MEDS: MULTIVITAMINS/MINERALS THERAP 1 TAB PO SCH (07:44)
[2016-10-22 08:00] VITALS: BP 140/66
[2016-10-22] MEDS ORDERED: LevoFLOXacin 500 MG in APPROPRIATE DILUENT 1 EA IV ONE (08:30)
[2016-10-22] MEDS ORDERED: POTASSIUM CHLORIDE 10 MEQ SR TABLET PO ONE ×2 (08:30→18:15)
--- NOTE | 2016-10-22 10:02 | ECHO ---
DATE OF PROCEDURE: 10/21/2016 REFERRING PHYSICIAN: Keshawn De Leon MD PATIENT LOCATION: Room 3218 REASON FOR ECHOCARDIOGRAM: Shortness of breath. 2D MEASUREMENTS: IVS: 1.5 cm LV: 3.8 cm LA: 4.1 cm Aorta: 3.4 cm DOPPLER MEASUREMENTS: Peak velocity across the aortic valve: 1.1 m/s Peak velocity across the LVOT: 0.75 m/s Mitral E: 0.76, Mitral A: 0.80, with a ratio of less than 1.0 Maximum tricuspid valve velocity: 2.1 m/s 2D COMMENTS: 1. Normal left ventricular size with mild to moderate increased left ventricular wall thickness. Left ventricular systolic function is normal with an estimated global left ventricular systolic ejection fraction of 55%. 2. Mildly enlarged left atrium. Normal right atrium and right ventricle. 3. The atrial septum appeared to be normal without evidence of defect or shunt. 4. Normal aortic root. 5. No pericardial effusion seen. 6. Mildly calcified aortic valve with normal leaflet excursion. Mildly calcified mitral annulus with normal anterior mitral valve leaflet motion. Normal tricuspid valve. The pulmonic valve and proximal pulmonary artery branches were not well visualized. 7. The inferior vena cava was not visualized. DOPPLER: It detects mild aortic regurgitation, mild to moderate mitral regurgitation and mild tricuspid regurgitation. The calculated pulmonary artery systolic pressure was normal, most likely underestimated. Abnormal relaxation pattern was noted across the mitral valve leaflet as well as the mitral valve annulus consistent with a delayed relaxation. IMPRESSION: 1. Low normal global left ventricular systolic function with mild to moderate concentric left ventricular hypertrophy. There are features of left ventricular diastolic dysfunction, grade 1. 2. Aortic valve sclerosis with mild aortic regurgitation. 3. Mitral annulus calcification with mildly enlarged left atrium and mild to moderate mitral regurgitation. 4. Mild tricuspid regurgitation with a normal calculated pulmonary artery systolic pressure, probably underestimated. MTDD
[2016-10-22 12:00] VITALS: BP 140/63
[2016-10-22] MEDS: predniSONE 10 MG TAB PO SCH (13:28)
--- NOTE | 2016-10-22 14:14 | IPNPDOC ---
Text Note Date of Service The patient was seen on 10/22/16 at 14:08. NOTE Subjective: Shortness of breath has improved. Had episode of nonsustained V. tach however he was asymptomatic. No chest pain/palpitations. Objective: Vitals: (see below) General: No acute distress, laying comfortably in bed. HEENT: Moist mucous membranes. Neck: No JVD or lymphadenopathy Cardiac: RRR, No murmurs Pulm: Coarse and fine crackles b/l. No wheezing, mild rhonchi bilaterally. Abd: NT/ND + BS Ext: No edema or cyanosis Labs (see below) Images: Chest x-ray on 10/20/16 Impression: Progressive and now marked diffuse interstitial lung disease; fibrosis versus other. Some sparing in the left upper lung zone. No significant change from the most recent prior study of October 15, 2016. CTA Chest 10/20/16 Impression:Chronic interstitial fibrosis. New alveolar densities extensively throughout both lungs today suggesting acute infiltrates on chronic fibrosis. New small bilateral pleural effusions. Chronic mediastinal lymphadenopathy. Cholelithiasis, also present previously. Cardiomegaly without pericardial effusion. CXR 10/21/16 Impression: Extensive interstitial infiltrates again noted. Echocardiogram 10/21/16 IMPRESSION: 1. Normal left ventricular size with mild to moderate increased left ventricular wall thickness. Left ventricular systolic function is normal with an estimated global left ventricular systolic ejection fraction of 55%. 2. Aortic valve sclerosis with mild aortic regurgitation. 3. Mitral annulus calcification with mildly enlarged left atrium and mild to moderate mitral regurgitation. 4. Mild tricuspid regurgitation with a normal calculated pulmonary artery systolic pressure, probably underestimated. Assessment/Plan 1. Acute hypoxic respiratory failure, with underlying pulmonary fibrosis. This does appear to be mixed picture 2/2 Klebsiella pneumonia as well as pulmonary congestion. Patient is currently on broad-spectrum antibiotics, narrowed down to levaquin. The patient also appears to have pulmonary congestion on presentation as well and he has been diuresed. His creatinine has started to rise afterwards Lasix has been temporarily held. Echocardiogram (see above). Appreciate Dr. Velásquez's input. 2. Elevated troponin- this is likely secondary to demand ischemia. No significance ST changes on EKG. It was normal with her this is secondary to an infectious process for which the patient is being treated with broad-spectrum antibiotics versus strain from CHF. His troponin is trending down. Will need a cardiology evaluation outpatient. His echocardiogram is also pending. 3. Nonsustained V. tach- asymptomatic. Echocardiogram (see above). Potassium replaced. We'll maintain K greater than 4 and mag greater than 2. Low dose beta shanda has been started. If patient has recurrent episodes will have cardiology consulted otherwise will have patient follow up outpatient. 3. Pulmonary fibrosis- patient follows up with Dr. Rushing outpatient. 4. Hypothyroidism- continue home meds 5. Acute kidney injury- likely secondary to volume depletion. Will continue to hold Lasix for now and monitor. 6. NATHAN on CPAP DVT prophy: Heparin subcutaneous VS,Fishbone, I+O VS, Fishbone, I+O Laboratory Tests 10/22/16 05:09 Calcium Level 7.9 L, Aspartate Amino Transf (AST/SGOT) 52 H, Alanine Aminotransferase (ALT/SGPT) 65, Alkaline Phosphatase 84, Total Bilirubin 0.6 #, Total Protein 6.7, Albumin 1.9 L, Red Blood Count 3.77 L, Mean Corpuscular Volume 93.0, Mean Corpuscular Hemoglobin 30.8, Mean Corpuscular Hemoglobin Concent 33.1, Red Cell Distribution Width 15.5 H, Neutrophils (%) (Auto) 89.4 H , Lymphocytes (%) (Auto) 7.6 L, Monocytes (%) (Auto) 1.7, Eosinophils (%) (Auto ) 0.3, Basophils (%) (Auto) 0.5, Neutrophils # (Auto) 12.8 H, Lymphocytes # ( Auto) 1.2 L, Monocytes # (Auto) 0.2, Eosinophils # (Auto) 0.0, Basophils # (Auto ) 0.1 Vital Signs Date Time Temp Pulse Resp B/P Pulse Ox O2 Delivery O2 Flow Rate FiO2 10/22/16 13:29 140/63 10/22/16 12:00 96.9 91 20 92 Nasal Cannula 3.0 10/21/16 04:00 35 I&O- Last 24 Hours up to 6 AM 10/22/16 06:00 Intake Total 940 ml Output Total 1550 ml Balance -610 ml ALETHA MENG MD Oct 22, 2016 14:14
[2016-10-22 14:36] LABS: CALCIUM LEVEL 7.6 MG/DL (8.8-10.2); CREATININE FOR GFR 1.38 MG/DL (0.70-1.30); GLOMERULAR FILTRATION RATE 52.8 (>35); MAGNESIUM LEVEL 2.4 MG/DL (1.8-2.4); POTASSIUM SERUM 3.8 MEQ/L (3.5-5.1)
[2016-10-22] MEDS: METOPROLOL TART 12.5 MG PER 1/2 TAB PO SCH ×2 (14:56→21:37)
[2016-10-22 16:00] VITALS: BP 139/64
[2016-10-22] MEDS ORDERED: methylPREDNISolone INJ 125 MG/2 ML VIAL (J2930) IV SCH (18:00)
--- NOTE | 2016-10-22 18:44 | EDDOCDS ---
Physician Documentation [facility] Name: Andre Lozano Age: 80 yrs Sex: Male : 1935 Arrival Date: 10/19/2016 Time: 13:02 Bed Admit Hold Private MD: Isacc Pritchard Disposition: 10/19 18:27 Critical Care: Critical care not applicable. le Disposition: 10/19/16 18:26 Hospitalization ordered by oKry Alford for Inpatient Admission. Preliminary diagnosis are Unspecified bacterial pneumonia, Idiopathic pulmonary fibrosis, Shortness of breath, Acute respiratory failure with hypoxia. - Bed requested for PCU. - Status is Inpatient Admission. aa3 - Condition is Stable. - Problem is an acute exacerbation. - Symptoms have improved. Historical: - Allergies: no known allergies; - Home Meds: 1. Cialis 2.5 mg oral tab 1 tab once daily 2. previnar 13 syringe as directed 3. levothyroxine 75 mcg oral tab once daily 4. Cefuroxime Oral 500 mg twice a day started 10/17/2015 5. benzonatate 100 mg oral cap 1 cap 3 times per day - PMHx: Hypothyroidism; pulmonary fibrosis; - PSHx: Hemorrhoidectomy; - Social history: Smoking status: Patient states was never smoker of tobacco. No barriers to communication noted, Speaks appropriately for age. - Family history: Not pertinent. - : The pt / caregiver states he / she is not on anticoagulants. Unable to Verify Home Med List with the patient / caregiver. - Exposure Risk Screening:: None identified. Vital Signs: 13:04 BP 181 / 84; Pulse 127; Resp 22 S; Temp 96.3; Pulse Ox 100% on R/A; Weight 67.13 kg / dd6 148 lbs (R); Height 5 ft. 5 in. (165.10 cm) (R); 13:26 Pulse 112 MON; Pulse Ox 71% ; kcs 13:30 BP 192 / 92 (auto/); kcs 13:36 Pulse 111 MON; Pulse Ox 95% ; kcs 14:07 Pulse 110 MON; Pulse Ox 94% ; rs3 14:08 BP 154 / 76 (auto/); rs3 14:13 Pulse 105 MON; Pulse Ox 95% ; rs3 14:18 BP 164 / 94 (auto/); rs3 14:18 Pulse 106 MON; Pulse Ox 96% ; rs3 14:33 BP 170 / 80 (auto/); rs3 14:33 Pulse 104 MON; Pulse Ox 95% ; rs3 14:48 BP 170 / 73 (auto/); rs3 14:48 Pulse 104 MON; Pulse Ox 96% ; rs3 15:03 BP 139 / 66 (auto/); rs3 15:03 Pulse 101 MON; Pulse Ox 95% ; rs3 15:16 Pulse 106 MON; Pulse Ox 93% ; rs3 15:18 BP 116 / 69 (auto/); rs3 15:48 BP 191 / 85 (auto/); rs3 15:48 Pulse 104 MON; Pulse Ox 94% ; rs3 16:03 BP 171 / 85 (auto/); rs3 16:03 Pulse 103 MON; Pulse Ox 95% ; rs3 16:18 BP 168 / 80 (auto/); rs3 16:18 Pulse 102 MON; Pulse Ox 94% ; rs3 16:33 BP 164 / 76 (auto/); rs3 16:34 Pulse 110 MON; Pulse Ox 93% ; rs3 16:48 BP 160 / 74 (auto/); rs3 16:48 Pulse 103 MON; Pulse Ox 95% ; rs3 17:15 BP 151 / 73 (auto/); rs3 17:15 Pulse 102 MON; Pulse Ox 94% ; rs3 17:18 BP 147 / 77 (auto/); rs3 17:18 Pulse 102 MON; Pulse Ox 94% ; rs3 13:04 Body Mass Index 24.63 (67.13 kg, 165.10 cm) dd6 MDM: 13:38 Chest, 2 View (pa\E\lat) Ordered. EDMS 13:38 Call Respiratory ordered. le 13:39 -Arterial Blood Gas Ordered. EDMS 13:41 Call Respiratory complete. deg 13:42 -Blood Culture (Adults Only), peripheral from different site, or from device/port/PICC le etc. if present ordered. 13:42 Plating Operator/Pulse Ox/q 15 min VS ordered. le 13:42 IV Saline Lock ordered. le 13:42 Oxygen at 4L/Min NC or Home dosage ordered. le 13:42 Rhythm Strip to chart ordered. le 13:42 Basic Metabolic Profile Ordered. EDMS 13:42 CBC with Diff Ordered. EDMS 13:42 Cardiac Injury Profile Ordered. EDMS 13:42 Troponin Ordered. EDMS 13:43 D-Dimer Quant Ordered. EDMS 13:43 -Blood Culture Ordered. EDMS 13:43 ECG WITH READING ER PHYS+CARDIAG ordered. EDMS 14:00 Misc. Nursing Order ordered. le 14:05 -Blood Culture (Adults Only), peripheral from different site, or from device/port/PICC deg etc. if present complete. 14:06 BED REQUEST+ADM ordered. EDMS 14:06 BNP Ordered. EDMS 14:06 BLOOD CULTURES Ordered. EDMS 14:13 Financial registration complete. lg 14:39 [facility] [place] was scanned into [employer] and attached to record. lg 15:57 -Arterial Blood Gas Reviewed. le 15:57 Basic Metabolic Profile Reviewed. le 15:57 CBC with Diff Reviewed. le 15:57 Cardiac Injury Profile Reviewed. le 15:57 Troponin Reviewed. le 15:57 BNP Reviewed. le 15:57 Chest, 2 View (pa\E\lat) Reviewed. le 16:00 D-Dimer Quant Reviewed. le 16:02 CT Chest Angio R/O PE Ordered. EDMS 16:05 Redraw CIP &Troponin (put time in details section) ordered. le 16:13 Redraw CIP &Troponin (put time in details section) complete. deg 16:14 CARDIAC MARKER PANEL Ordered. EDMS 18:15 CARDIAC MARKER PANEL Reviewed. le 18:15 levofloxacin 750 mg IVPB once over 90 mins ordered. le 18:19 Lactic Acid (Maynard tube on ice) Ordered. EDMS 20:11 Admission / Observation Status ordered. EDMS 20:11 ELECTROCARDIOGRAM ADULT ordered. EDMS 20:11 REGULAR DIET ordered. EDMS 20:12 CBC WITH DIFFERENTIAL Ordered. EDMS 20:12 COMPLETE COMPHRENSIVE METABOLI Ordered. EDMS 20:13 TROPONIN Ordered. EDMS 22:24 LACTIC ACID LEVEL, LACTATE Ordered. EDMS 22:28 SPUTUM CULTURE AND GRAM STAIN Ordered. EDMS 10/20 04:36 ARTERIAL BLOOD GAS Ordered. EDMS 04:51 PORTABLE CHEST X-RAY Ordered. EDMS 04:55 ECHOCARD,DOPPLER/COLOR FLOW ordered. EDMS 06:34 MAGNESIUM LEVEL Ordered. EDMS 07:47 TROPONIN Ordered. EDMS 09:35 T-Sheet-- Draft Copy was scanned into [employer] and attached to record. gb 13:19 URINALYSIS Ordered. EDMS 15:20 Chest, 1 view Ordered. EDMS 15:22 URINE STREP PNEUMONIAE ANTIGEN Ordered. EDMS 15:22 LEGIONELLA ANTIGEN URINE Ordered. EDMS 15:22 RESPIRATORY PANEL Ordered. EDMS 15:26 C REACTIVE PROTEIN QUANTITATIV Ordered. EDMS 16:44 ARTERIAL BLOOD GAS Ordered. EDAR 10/21 13:16 ECG/EKG was scanned into [employer] and attached to record. gb Administered Medications: 10/19 18:50 Drug: levofloxacin 750 mg [levofloxacin 500 mg/100 mL in 5 % dextrose intravenous rs3 piggyback] Route: IVPB; Infused Over: 90 mins; Site: left forearm; Signatures: Dispatcher [employer] EDMS Faviola Russell, RN RN kcs Cassidy Garcia, Front End Web Designer Unit deg Mera Mcelroy, Reg Reg gb Neha Nguyen, Reg Reg lg Viji Lassiter, INSTRUCTIONAL TECHNOLOGY FACILITATOR Spencer Nichols RN RN ml6 Kamille House RN RN aa3 Eli FloresRN RN cf2 Ashlyn Vela RN rs3 The chart was reviewed and I authenticate all verbal orders and agree with the evaluation and treatment provided.Corrections: (The following items were deleted from the chart) 20: 20:12 TROPONIN ordered. EDAR EDAR 10/20 05:01 04:36 Chest, 2 view PA, Lat ordered. EDAR EDMS 06:35 10/19 22:30 MAGNESIUM LEVEL ordered. EDAR EDAR 10/20 07:49 10/19 20:13 TROPONIN ordered. EDAR EDAR 10/20 13:39 13:01 ECHOCARD,DOPPLER/COLOR FLOW ordered. EDAR EDMS 15:26 15:24 C REACTIVE PROTEIN QUANTITATIV ordered. EDAR EDMS Attachments: 10/19 14:39 [facility] [place] 10/20 09:35 T-Sheet-- Draft Copy 10/21 13:16 ECG/EKG Chart Complete MTDD
--- NOTE | 2016-10-22 18:44 | EDDOCDS ---
Physician Documentation [facility] Name: Ander Lozano Age: 80 yrs Sex: Male : 1935 Arrival Date: 10/19/2016 Time: 13:02 Bed Admit Hold Private MD: Isacc Pritchard Disposition: 10/19 18:27 Critical Care: Critical care not applicable. le Disposition: 10/19/16 18:26 Hospitalization ordered by Kory Alford for Inpatient Admission. Preliminary diagnosis are Unspecified bacterial pneumonia, Idiopathic pulmonary fibrosis, Shortness of breath, Acute respiratory failure with hypoxia. - Bed requested for PCU. - Status is Inpatient Admission. aa3 - Condition is Stable. - Problem is an acute exacerbation. - Symptoms have improved. Historical: - Allergies: no known allergies; - Home Meds: 1. Cialis 2.5 mg oral tab 1 tab once daily 2. previnar 13 syringe as directed 3. levothyroxine 75 mcg oral tab once daily 4. Cefuroxime Oral 500 mg twice a day started 10/17/2015 5. benzonatate 100 mg oral cap 1 cap 3 times per day - PMHx: Hypothyroidism; pulmonary fibrosis; - PSHx: Hemorrhoidectomy; - Social history: Smoking status: Patient states was never smoker of tobacco. No barriers to communication noted, Speaks appropriately for age. - Family history: Not pertinent. - : The pt / caregiver states he / she is not on anticoagulants. Unable to Verify Home Med List with the patient / caregiver. - Exposure Risk Screening:: None identified. Vital Signs: 13:04 BP 181 / 84; Pulse 127; Resp 22 S; Temp 96.3; Pulse Ox 100% on R/A; Weight 67.13 kg / dd6 148 lbs (R); Height 5 ft. 5 in. (165.10 cm) (R); 13:26 Pulse 112 MON; Pulse Ox 71% ; kcs 13:30 BP 192 / 92 (auto/); kcs 13:36 Pulse 111 MON; Pulse Ox 95% ; kcs 14:07 Pulse 110 MON; Pulse Ox 94% ; rs3 14:08 BP 154 / 76 (auto/); rs3 14:13 Pulse 105 MON; Pulse Ox 95% ; rs3 14:18 BP 164 / 94 (auto/); rs3 14:18 Pulse 106 MON; Pulse Ox 96% ; rs3 14:33 BP 170 / 80 (auto/); rs3 14:33 Pulse 104 MON; Pulse Ox 95% ; rs3 14:48 BP 170 / 73 (auto/); rs3 14:48 Pulse 104 MON; Pulse Ox 96% ; rs3 15:03 BP 139 / 66 (auto/); rs3 15:03 Pulse 101 MON; Pulse Ox 95% ; rs3 15:16 Pulse 106 MON; Pulse Ox 93% ; rs3 15:18 BP 116 / 69 (auto/); rs3 15:48 BP 191 / 85 (auto/); rs3 15:48 Pulse 104 MON; Pulse Ox 94% ; rs3 16:03 BP 171 / 85 (auto/); rs3 16:03 Pulse 103 MON; Pulse Ox 95% ; rs3 16:18 BP 168 / 80 (auto/); rs3 16:18 Pulse 102 MON; Pulse Ox 94% ; rs3 16:33 BP 164 / 76 (auto/); rs3 16:34 Pulse 110 MON; Pulse Ox 93% ; rs3 16:48 BP 160 / 74 (auto/); rs3 16:48 Pulse 103 MON; Pulse Ox 95% ; rs3 17:15 BP 151 / 73 (auto/); rs3 17:15 Pulse 102 MON; Pulse Ox 94% ; rs3 17:18 BP 147 / 77 (auto/); rs3 17:18 Pulse 102 MON; Pulse Ox 94% ; rs3 13:04 Body Mass Index 24.63 (67.13 kg, 165.10 cm) dd6 MDM: 13:38 Chest, 2 View (pa\E\lat) Ordered. EDMS 13:38 Call Respiratory ordered. le 13:39 -Arterial Blood Gas Ordered. EDMS 13:41 Call Respiratory complete. deg 13:42 -Blood Culture (Adults Only), peripheral from different site, or from device/port/PICC le etc. if present ordered. 13:42 Shipyard Painter Helper/Pulse Ox/q 15 min VS ordered. le 13:42 IV Saline Lock ordered. le 13:42 Oxygen at 4L/Min NC or Home dosage ordered. le 13:42 Rhythm Strip to chart ordered. le 13:42 Basic Metabolic Profile Ordered. EDMS 13:42 CBC with Diff Ordered. EDMS 13:42 Cardiac Injury Profile Ordered. EDMS 13:42 Troponin Ordered. EDMS 13:43 D-Dimer Quant Ordered. EDMS 13:43 -Blood Culture Ordered. EDMS 13:43 ECG WITH READING ER PHYS+CARDIAG ordered. EDMS 14:00 Misc. Nursing Order ordered. le 14:05 -Blood Culture (Adults Only), peripheral from different site, or from device/port/PICC deg etc. if present complete. 14:06 BED REQUEST+ADM ordered. EDMS 14:06 BNP Ordered. EDMS 14:06 BLOOD CULTURES Ordered. EDMS 14:13 Financial registration complete. lg 14:39 [facility] [place] Agreement was scanned into [employer] and attached to record. lg 15:57 -Arterial Blood Gas Reviewed. le 15:57 Basic Metabolic Profile Reviewed. le 15:57 CBC with Diff Reviewed. le 15:57 Cardiac Injury Profile Reviewed. le 15:57 Troponin Reviewed. le 15:57 BNP Reviewed. le 15:57 Chest, 2 View (pa\E\lat) Reviewed. le 16:00 D-Dimer Quant Reviewed. le 16:02 CT Chest Angio R/O PE Ordered. EDMS 16:05 Redraw CIP &Troponin (put time in details section) ordered. le 16:13 Redraw CIP &Troponin (put time in details section) complete. deg 16:14 CARDIAC MARKER PANEL Ordered. EDMS 18:15 CARDIAC MARKER PANEL Reviewed. le 18:15 levofloxacin 750 mg IVPB once over 90 mins ordered. le 18:19 Lactic Acid (Maynard tube on ice) Ordered. EDMS 20:11 Admission / Observation Status ordered. EDMS 20:11 ELECTROCARDIOGRAM ADULT ordered. EDMS 20:11 REGULAR DIET ordered. EDMS 20:12 CBC WITH DIFFERENTIAL Ordered. EDMS 20:12 COMPLETE COMPHRENSIVE METABOLI Ordered. EDMS 20:13 TROPONIN Ordered. EDMS 22:24 LACTIC ACID LEVEL, LACTATE Ordered. EDMS 22:28 SPUTUM CULTURE AND GRAM STAIN Ordered. EDMS 10/20 04:36 ARTERIAL BLOOD GAS Ordered. EDMS 04:51 PORTABLE CHEST X-RAY Ordered. EDMS 04:55 ECHOCARD,DOPPLER/COLOR FLOW ordered. EDMS 06:34 MAGNESIUM LEVEL Ordered. EDMS 07:47 TROPONIN Ordered. EDMS 09:35 T-Sheet-- Draft Copy was scanned into [employer] and attached to record. gb 13:19 URINALYSIS Ordered. EDMS 15:20 Chest, 1 view Ordered. EDMS 15:22 URINE STREP PNEUMONIAE ANTIGEN Ordered. EDMS 15:22 LEGIONELLA ANTIGEN URINE Ordered. EDMS 15:22 RESPIRATORY PANEL Ordered. EDMS 15:26 C REACTIVE PROTEIN QUANTITATIV Ordered. EDMS 16:44 ARTERIAL BLOOD GAS Ordered. EDAZ 10/21 13:16 ECG/EKG was scanned into [employer] and attached to record. gb Administered Medications: 10/19 18:50 Drug: levofloxacin 750 mg [levofloxacin 500 mg/100 mL in 5 % dextrose intravenous rs3 piggyback] Route: IVPB; Infused Over: 90 mins; Site: left forearm; Signatures: Dispatcher [employer] EDMS Faviola Russell, RN RN kcs Cassidy Garcia, Avionics Safety Inspector Unit deg Mera Mcelroy, Reg Reg gb Neha Nguyen, Reg Reg lg Viji Lassiter, BIOFUELS PRODUCTION ASSOCIATE Spencer Nichols RN RN ml6 Kamille House RN RN aa3 Eli FloresRN RN cf2 Ashlyn Vela RN rs3 The chart was reviewed and I authenticate all verbal orders and agree with the evaluation and treatment provided.Corrections: (The following items were deleted from the chart) 20: 20:12 TROPONIN ordered. EDAZ EDAZ 10/20 05:01 04:36 Chest, 2 view PA, Lat ordered. EDAZ EDMS 06:35 10/19 22:30 MAGNESIUM LEVEL ordered. EDAZ EDAZ 10/20 07:49 10/19 20:13 TROPONIN ordered. EDAZ EDAZ 10/20 13:39 13:01 ECHOCARD,DOPPLER/COLOR FLOW ordered. EDAZ EDMS 15:26 15:24 C REACTIVE PROTEIN QUANTITATIV ordered. EDAZ EDMS Attachments: 10/19 14:39 [facility] [place] Agreement 10/20 09:35 T-Sheet-- Draft Copy 10/21 13:16 ECG/EKG Chart Complete MTDD
--- NOTE | 2016-10-22 18:45 | EDDOCDS ---
Nurse's Notes [facility] Name: Andre Paz Age: 80 yrs Sex: Male : 1935 Arrival Date: 10/19/2016 Time: 13:02 Bed Admit Hold Private MD: Isacc Pritchard Diagnosis: Unspecified bacterial pneumonia;Idiopathic pulmonary fibrosis;Shortness of breath;Acute respiratory failure with hypoxia Presentation: 10/19 13:06 Presenting complaint: Patient states: states fell Wednesday, states Hx of pulmonary ml6 fibrosis, states increasing SOB x 4 days since fall. Adult Sepsis Screening: The patient does not have new or worsening altered mentation. Patient has a respiratory rate of greater than or equal to 22 (1 point). Systolic blood pressure is greater than 100. Patient has a qSOFA score of 0- Negative Sepsis Screen. Suicide/Homicide risk assessment- the patient denies having any suicidal and/or homicidal ideations and does not present with any other emotional, behavioral or mental health complaints. Status: Patient is not a hotel or motel room service supervisor or dependent. Transition of care: patient was not received from another setting of care. 13:06 Acuity: ALEXANDER Level 3 ml6 13:06 Method Of Arrival: Walkin/Carried/Asstd ml6 Triage Assessment: 13:10 General: Appears in no apparent distress, Behavior is appropriate for age, cooperative. ml6 Pain: Denies pain. Cardiovascular: No deficits noted. Respiratory: Onset: The symptoms/episode began/occurred 4 days [employer] [place], Airway is patent Respiratory effort is even, unlabored, Respiratory pattern is regular, symmetrical, Breath sounds are diminished bilaterally. Reports shortness of breath at rest cough that is non-productive, dry, hacking, persistent the patient has moderate shortness of breath. GI: No deficits noted. Historical: - Allergies: no known allergies; - Home Meds: 1. Cialis 2.5 mg oral tab 1 tab once daily 2. previnar 13 syringe as directed 3. levothyroxine 75 mcg oral tab once daily 4. Cefuroxime Oral 500 mg twice a day started 10/17/2015 5. benzonatate 100 mg oral cap 1 cap 3 times per day - PMHx: Hypothyroidism; pulmonary fibrosis; - PSHx: Hemorrhoidectomy; - Social history: Smoking status: Patient states was never smoker of tobacco. No barriers to communication noted, Speaks appropriately for age. - Family history: Not pertinent. - : The pt / caregiver states he / she is not on anticoagulants. Unable to Verify Home Med List with the patient / caregiver. - Exposure Risk Screening:: None identified. Screenin:16 Screening information is obtained from the patient. Fall risk: At risk due to prior rs3 history of falls. Assistance ADL's: Requires assistance with meal preparation, this assistance is provided by family members, bathing, assistance is provided by family members, housework, assistance is provided by family members, medication administration, assistance is provided by family members. Abuse/DV Screen: The patient / caregiver reports he/she is: not in a situation that causes fear, pain or injury. Nutritional screening: No deficits noted. Advance Directives: Currently, there is no health care proxy. There is no active DNR order. home support is adequate. Assessment: 13:30 General: Appears in no apparent distress, see triage assessment. rs3 14:54 General: Appears in no apparent distress, comfortable, Behavior is appropriate for age, jmb cooperative, Patient laying on stretcher, appears comfortable. Voices no complaints at this time. . Neurological: Level of Consciousness is awake, alert, obeys commands, Oriented to person, place, time. Respiratory: Airway is patent Respiratory effort is even, unlabored, Respiratory pattern is regular, symmetrical. 15:21 General: Appears in no apparent distress. Cardiovascular: Capillary refill < 3 seconds rs3 Heart tones S1 S2 present. Cardiovascular: Chest pain is denied. Respiratory: Breath sounds with crackles in right posterior upper lobe and right posterior middle lobe Breath sounds are diminished in left posterior upper lobe and left posterior lower lobe. Derm: Skin is pink, warm & dry. 16:30 General: Appears in no apparent distress, Behavior is cooperative, returned from CT. rs3 tolerated well. SOB on Exertion. breathes easy at rest. on oxygen 4L/nc sat in 95%. will continue to monitor. . 17:30 General: Appears in no apparent distress, Behavior is cooperative, sob on exertion. rs3 breathes easy at rest. on oxygen 4L/nc. stat 95%. waiting on CT results. 18:52 General: Appears in no apparent distress, Behavior is appropriate for age, cooperative, rs3 admission provider with patient. ordered IV antibiotic infusing. family at bedside. manuel Aislinn given. tolerating well. . 20:28 Reassessment: Patient denies pain at this time. Patient states feeling better. Patient cf2 states symptoms have improved. Adult Sepsis Screening: The patient does not have new or worsening altered mentation. Patient's respiratory rate is less than 22. Systolic blood pressure is greater than 100. Patient has a qSOFA score of 0- Negative Sepsis Screen. 10/20 15:05 General: pt found at this time trying to get OOB. pt had removed venti mask and mb9 appeared SOB. pulse ox applied and showed a O2 sat of 70%. pt immediately placed back in bed and had venti mask put back in place. SpO2 eventually came up to 94%. . 15:17 General: pt wanted to get up to the commode. at this time pt was assisted by two RN to mb9 transfer to a bedside commode. pt appeared very unsteady on his feet. pt appeared SOB and SpO2 dropped to 85%.. Vital Signs: 10/19 13:04 BP 181 / 84; Pulse 127; Resp 22 S; Temp 96.3; Pulse Ox 100% on R/A; Weight 67.13 kg dd6 (R); Height 5 ft. 5 in. (165.10 cm) (R); 13:26 Pulse 112 MON; Pulse Ox 71% ; kcs 13:30 BP 192 / 92 (auto/); kcs 13:36 Pulse 111 MON; Pulse Ox 95% ; kcs 14:07 Pulse 110 MON; Pulse Ox 94% ; rs3 14:08 BP 154 / 76 (auto/); rs3 14:13 Pulse 105 MON; Pulse Ox 95% ; rs3 14:18 BP 164 / 94 (auto/); rs3 14:18 Pulse 106 MON; Pulse Ox 96% ; rs3 14:33 BP 170 / 80 (auto/); rs3 14:33 Pulse 104 MON; Pulse Ox 95% ; rs3 14:48 BP 170 / 73 (auto/); rs3 14:48 Pulse 104 MON; Pulse Ox 96% ; rs3 15:03 BP 139 / 66 (auto/); rs3 15:03 Pulse 101 MON; Pulse Ox 95% ; rs3 15:16 Pulse 106 MON; Pulse Ox 93% ; rs3 15:18 BP 116 / 69 (auto/); rs3 15:48 BP 191 / 85 (auto/); rs3 15:48 Pulse 104 MON; Pulse Ox 94% ; rs3 16:03 BP 171 / 85 (auto/); rs3 16:03 Pulse 103 MON; Pulse Ox 95% ; rs3 16:18 BP 168 / 80 (auto/); rs3 16:18 Pulse 102 MON; Pulse Ox 94% ; rs3 16:33 BP 164 / 76 (auto/); rs3 16:34 Pulse 110 MON; Pulse Ox 93% ; rs3 16:48 BP 160 / 74 (auto/); rs3 16:48 Pulse 103 MON; Pulse Ox 95% ; rs3 17:15 BP 151 / 73 (auto/); rs3 17:15 Pulse 102 MON; Pulse Ox 94% ; rs3 17:18 BP 147 / 77 (auto/); rs3 17:18 Pulse 102 MON; Pulse Ox 94% ; rs3 13:04 Body Mass Index 24.63 (67.13 kg, 165.10 cm) dd6 Vitals: 13:04 Log In Time: October 19, 2016 at 13:02. dd6 ED Course: 13:03 Patient visited by Flash Barker PCA. dd6 13:03 Patient moved to Waiting dd6 13:04 Isacc Pritchard is Private Physician. dd6 13:04 Patient moved to Pre RCE dd6 13:07 Triage Initiated ml6 13:11 Ashlyn Vela,RN is Primary Nurse. ml6 13:11 Monse Fish,RN is Primary Nurse. ml6 13:11 Patient moved to 1 ml6 13:11 Patient moved to 4 ml6 13:11 youth nutritional monitor on. Pulse ox on. NIBP on. ct3 13:14 Patient moved to 1 jlf 13:17 [facility] 13:30 O2 via nasal cannula \T\ 3L/min. kcs 13:32 Patient visited by Giovana Faith PCA. ct3 13:32 Accompanied by Family Member, Patient has correct armband on for positive ct3 identification. Placed in gown. Bed in low position. Call light in reach. Side rails up X2. 13:35 Inserted saline lock: 20 gauge in left forearm The patient tolerated the procedure well.kcs 13:41 Patient visited by Viji Lassiter FNP. le 13:41 Patient visited by Viji Lassiter FNP. le 14:03 EKG done. (by ED staff). Reviewed by Viji MOREJON. ct3 14:07 Patient visited by Giovana Faith PCA. ct3 14:08 -Arterial Blood Gas Sent. cs15 14:39 Patient name changed from Andre\S\Robin\S\Marta\S\ to Andre\S\N\S\Marta. EDMS 14:39 [facility] [place] Payment Agreement was scanned into [employer] and attached to record. lg 14:43 Chest, 2 View (pa\E\lat) Returned. EDMS 14:55 Patient visited by Eduardo Rios,RN. jmb 15:25 Patient visited by Ashlyn Vela RN. rs3 15:38 BLOOD CULTURES Sent. ct3 16:22 Patient visited by Salima Arthur,CHANA. ead 16:51 Patient visited by Thomas Brothers PCA. jlf 17:14 CT Chest Angio R/O PE Returned. EDMS 17:50 EKG-ADULT Returned. EDMS 17:53 Patient visited by Ashlyn Vela,CHANA. rs3 18:26 Kory Alford is Hospitalizing Provider. le 19:26 Primary Nurse role handed off by Ashlyn Vela,CHANA cf2 19:26 Eli Flores,CHAAN is Primary Nurse. cf2 19:26 Patient visited by Eli Flores,CHANA. cf2 19:33 Aslhyn Vela RN is Primary Nurse. sls1 19:33 Patient moved to 6 sls1 20:09 Patient visited by Eli Flores,CHANA. cf2 20:28 Patient visited by lEi Flores,CHANA. cf2 20:29 Patient visited by Eli Flores,CHANA. cf2 20:43 Patient moved to Admit Hold tmm1 22:55 Patient visited by Eli Flores,CHANA. cf2 22:57 Patient visited by Eli Flores,CHANA. cf2 22:57 The patient / caregiver is instructed regarding the plan of care and ED course. cf2 22:57 No procedures done that require assistance. cf2 10/20 01:29 Primary Nurse role handed off by Ashlyn Vela RN oziel 01:29 Primary Nurse role handed off by Monse Fish RN oziel 04:54 ARTERIAL BLOOD GAS Sent. bb3 08:54 PORTABLE CHEST X-RAY Returned. EDMS 09:35 T-Sheet-- Draft Copy was scanned into [employer] and attached to record. gb 13:10 Jayla Esteves MD is Attending Physician. pc 17:19 ARTERIAL BLOOD GAS Sent. rs5 10/21 13:16 ECG/EKG was scanned into [employer] and attached to record. gb Administered Medications: 10/19 18:50 Drug: levofloxacin 750 mg [levofloxacin 500 mg/100 mL in 5 % dextrose intravenous rs3 piggyback] Route: IVPB; Infused Over: 90 mins; Site: left forearm; RT: 14:09 ABG's drawn from right radial artery allens test done and positive pressure held for 5 cs15 minutes no bleeding noted pressure bandage applied specimen sent pt. tolerated well. 14:09 O2 via nasal cannula \T\ 3L/min. cs15 10/20 04:54 ABG's drawn from left radial artery pressure held for 5 minutes no bleeding noted bb3 pressure bandage applied specimen sent pt. tolerated well. O2 via nasal cannula \T\ 4L/min. 04:54 Respiratory: Respiratory effort is even, labored, Respiratory pattern is regular bb3 symmetrical, Breath sounds with rales in left posterior lower lobe and right posterior lower lobe. 17:20 ABG's drawn from left radial artery allens test done and positive pressure held for 5 rs5 minutes no bleeding noted pressure bandage applied specimen sent pt. tolerated well. Order Results: Lab Order: -Arterial Blood Gas; SPEC'M 10/19/16 14:07 Test: ABG pH (ARTERIAL); Value: 7.483; Range: 7.350-7.450; Abnormal: Above high normal; Units: UNITS; Status: F Test: ABG PARTIAL PRESSURE CO2; Value: 30.1; Range: 35.0-45.0; Abnormal: Below low normal; Units: mmHg; Status: F Test: ABG PARTIAL PRESSURE O2; Value: 69.8; Range: 75.0-100.0; Abnormal: Below low normal; Units: mmHg; Status: F Test: ABG TOTAL CO2; Value: 23.0; Range: 23.0-31.0; Units: MEQ/L; Status: F Test: ABG HCO3; Value: 22.1; Range: 22.0-26.0; Units: MEQ/L; Status: F Test: ABG BASE EXCESS; Value: -0.5; Range: -2.0-2.0; Status: F Test: ABG STANDARD HCO3; Value: 24.0; Range: 22.0-26.0; Units: MEQ/L; Status: F Test: ABG O2 SATURATION; Value: 93.4; Range: 95.0-99.0; Abnormal: Below low normal; Units: %; Status: F Test: ABG DEVICE; Value: NASAL SAI; Status: F Lab Order: -Blood Culture; SPEC'M 10/19/16 12:49 Test: BLOOD CULTURE; Value: No growth after 24 hours . All specimens observed; Status: F Test: BLOOD CULTURE; Value: for 7 days. Results final at that time.; Status: F Lab Order: Basic Metabolic Profile; SPEC'M 10/19/16 12:49 Test: GLUCOSE, FASTING; Value: 223; Range: 83-110; Abnormal: Above high normal; Units: MG/DL; Status: F Test: BLOOD UREA NITROGEN; Value: 25; Range: 7-18; Abnormal: Above high normal; Units: MG/DL; Status: F Test: CREATININE FOR GFR; Value: 1.34; Range: 0.70-1.30; Abnormal: Above high normal; Units: MG/DL; Status: F Test: GLOMERULAR FILTRATION RATE; Value: 54.6; Range: >35; Status: F Test: SODIUM LEVEL; Value: 139; Range: 136-145; Units: MEQ/L; Status: F Test: POTASSIUM SERUM; Value: 3.8; Range: 3.5-5.1; Units: MEQ/L; Status: F Test: CHLORIDE LEVEL; Value: 104; Range: 98-107; Units: MEQ/L; Status: F Test: CARBON DIOXIDE LEVEL; Value: 24; Range: 21-32; Units: MEQ/L; Status: F Test: ANION GAP; Value: 11; Range: 8-16; Units: MEQ/L; Status: F Test: CALCIUM LEVEL; Value: 8.4; Range: 8.8-10.2; Abnormal: Below low normal; Units: MG/DL; Status: F Test Note: ; Units are mL/min/1.73 m2 Chronic Kidney Disease Staging per NKF: Stage I & II GFR >=60 Normal to Mildly Decreased Stage III GFR 30-59 Moderately Decreased Stage IV GFR 15-29 Severely Decreased Stage V GFR <15 Very Little GFR Left ESRD GFR <15 on GENERAL SURGEON Lab Order: CBC with Diff; SPEC'M 10/19/16 12:49 Test: WHITE BLOOD COUNT; Value: 8.8; Range: 4.0-10.0; Units: K/mm3; Status: F Test: RED BLOOD COUNT; Value: 4.13; Range: 4.30-6.10; Abnormal: Below low normal; Units: M/mm3; Status: F Test: HEMOGLOBIN; Value: 12.6; Range: 14.0-18.0; Abnormal: Below low normal; Units: g/dl; Status: F Test: HEMATOCRIT; Value: 38.5; Range: 42.0-52.0; Abnormal: Below low normal; Units: %; Status: F Test: MEAN CORPUSCULAR VOLUME; Value: 93.1; Range: 80.0-96.0; Units: fl; Status: F Test: MEAN CORPUSCULAR HEMOGLOBIN; Value: 30.5; Range: 27.0-33.0; Units: pg; Status: F Test: MEAN CORPUSCULAR HGB CONC; Value: 32.8; Range: 32.0-36.5; Units: g/dl; Status: F Test: RED CELL DISTRIBUTION WIDTH; Value: 15.0; Range: 11.5-14.5; Abnormal: Above high normal; Units: %; Status: F Test: PLATELET COUNT, AUTOMATED; Value: 234; Range: 150-450; Units: k/mm3; Status: F Test: NEUTROPHILS %; Value: 88.1; Range: 36.0-66.0; Abnormal: Above high normal; Units: %; Status: F Test: LYMPH %; Value: 8.0; Range: 24.0-44.0; Abnormal: Below low normal; Units: %; Status: F Test: MONO %; Value: 2.3; Range: 0.0-5.0; Units: %; Status: F Test: EOS %; Value: 0.6; Range: 0.0-3.0; Units: %; Status: F Test: BASO %; Value: 0.2; Range: 0.0-1.0; Units: %; Status: F Test: LARGE UNSTAINED CELL %; Value: 0.8; Range: 0.0-4.0; Units: %; Status: F Test: NEUTROPHILS #; Value: 7.7; Range: 1.8-7.7; Units: K/mm3; Status: F Test: LYMPH #; Value: 0.7; Range: 1.5-4.5; Abnormal: Below low normal; Units: K/mm3; Status: F Test: MONO #; Value: 0.2; Range: 0.0-0.8; Units: K/mm3; Status: F Test: EOS #; Value: 0.0; Range: 0.0-0.50; Units: K/mm3; Status: F Test: BASO #; Value: 0.0; Range: 0.0-0.2; Units: K/mm3; Status: F Test: LARGE UNSTAINED CELL #; Value: 0.1; Range: 0.0-0.4; Units: K/mm3; Status: F Lab Order: Cardiac Injury Profile; SPEC'M 10/19/16 12:49 Test: CPK CREATINE PHOSPHOKINASE; Value: 67; Range: 39-308; Units: U/L; Status: F Test: CK-MB VALUE MASS; Value: 4.1; Range: 0.0-3.6; Abnormal: Above high normal; Units: NG/ML; Status: F Test: MB/CK RELATIVE INDEX; Value: 6.11; Range: < OR =4; Abnormal: Above high normal; Status: F Test Note: ; DIAGNOSIS CRITERIA MMB ng/ml Relative Index (RI) NON-AMI < or = 5 N/A MAYNARD ZONE > 5 < or = 4 AMI > 5 > 4 Lab Order: Troponin; SPEC'M 10/19/16 12:49 Test: TROPONIN I; Value: 0.25; Range: < 0.10; Abnormal: Above high normal; Units: NG/ML; Status: F Test Note: ; Troponin I Reference Interval for [facility] LOCI: 99th Percentile= 0.00-0.045 ng/ml Risk Stratification: <= 0.10 ng/ml Decreased Risk for Adverse Clinical Events. 0.10-1.50 ng/ml Increased Risk for Adverse Clinical Events. Evaluation of additional criterion and/or repeat testing in 2-6 hours is suggested to rule out myocardial damage. >= 1.50 ng/ml Indicative of Myocardial Injury. Lab Order: D-Dimer Quant; [facility] 10/19/16 15:33 Test: D-DIMER QUANT; Value: 2481.0; Range: <500; Abnormal: Above high normal; Units: ng/ml; Status: F Lab Order: BNP; [facility] 10/19/16 12:49 Test: BRAIN NATRIURETIC PEPTIDE; Value: 3060; Range: <100; Abnormal: Above high normal; Units: PG/ML; Status: F Lab Order: BLOOD CULTURES; [facility] 10/19/16 15:33 Test: BLOOD CULTURE; Value: No growth after 24 hours . All specimens observed; Status: F Test: BLOOD CULTURE; Value: for 7 days. Results final at that time.; Status: F Lab Order: CARDIAC MARKER PANEL; [facility] 10/19/16 17:08 Test: CPK CREATINE PHOSPHOKINASE; Value: 53; Range: 39-308; Units: U/L; Status: F Test: CK-MB VALUE MASS; Value: 4.2; Range: 0.0-3.6; Abnormal: Above high normal; Units: NG/ML; Status: F Test: MB/CK RELATIVE INDEX; Value: 7.92; Range: < OR =4; Abnormal: Above high normal; Status: F Test: TROPONIN I; Value: 0.25; Range: < 0.10; Abnormal: Above high normal; Units: NG/ML; Status: F Test Note: ; DIAGNOSIS CRITERIA MMB ng/ml Relative Index (RI) NON-AMI < or = 5 N/A MAYNARD ZONE > 5 < or = 4 AMI > 5 > 4 Lab Order: Lactic Acid (Maynard tube on ice); [facility] 10/19/16 13:42 Test: LACTIC ACID LEVEL, LACTATE; Value: 3.7; Range: 0.4-2.0; Abnormal: Above upper panic limits; Units: MMOL/L; Status: F Lab Order: CBC WITH DIFFERENTIAL; SPEC'M 10/20/16 07:24 Test: WHITE BLOOD COUNT; Value: 8.3; Range: 4.0-10.0; Units: K/mm3; Status: F Test: RED BLOOD COUNT; Value: 4.14; Range: 4.30-6.10; Abnormal: Below low normal; Units: M/mm3; Status: F Test: HEMOGLOBIN; Value: 12.9; Range: 14.0-18.0; Abnormal: Below low normal; Units: g/dl; Status: F Test: HEMATOCRIT; Value: 38.0; Range: 42.0-52.0; Abnormal: Below low normal; Units: %; Status: F Test: MEAN CORPUSCULAR VOLUME; Value: 91.8; Range: 80.0-96.0; Units: fl; Status: F Test: MEAN CORPUSCULAR HEMOGLOBIN; Value: 31.2; Range: 27.0-33.0; Units: pg; Status: F Test: MEAN CORPUSCULAR HGB CONC; Value: 33.9; Range: 32.0-36.5; Units: g/dl; Status: F Test: RED CELL DISTRIBUTION WIDTH; Value: 15.0; Range: 11.5-14.5; Abnormal: Above high normal; Units: %; Status: F Test: PLATELET COUNT, AUTOMATED; Value: 230; Range: 150-450; Units: k/mm3; Status: F Test: NEUTROPHILS %; Value: 83.8; Range: 36.0-66.0; Abnormal: Above high normal; Units: %; Status: F Test: LYMPH %; Value: 11.6; Range: 24.0-44.0; Abnormal: Below low normal; Units: %; Status: F Test: MONO %; Value: 3.0; Range: 0.0-5.0; Units: %; Status: F Test: EOS %; Value: 0.3; Range: 0.0-3.0; Units: %; Status: F Test: BASO %; Value: 0.1; Range: 0.0-1.0; Units: %; Status: F Test: LARGE UNSTAINED CELL %; Value: 1.1; Range: 0.0-4.0; Units: %; Status: F Test: NEUTROPHILS #; Value: 6.9; Range: 1.8-7.7; Units: K/mm3; Status: F Test: LYMPH #; Value: 1.0; Range: 1.5-4.5; Abnormal: Below low normal; Units: K/mm3; Status: F Test: MONO #; Value: 0.3; Range: 0.0-0.8; Units: K/mm3; Status: F Test: EOS #; Value: 0.0; Range: 0.0-0.50; Units: K/mm3; Status: F Test: BASO #; Value: 0.0; Range: 0.0-0.2; Units: K/mm3; Status: F Test: LARGE UNSTAINED CELL #; Value: 0.1; Range: 0.0-0.4; Units: K/mm3; Status: F Lab Order: COMPLETE COMPHRENSIVE METABOLI; SPEC'M 10/20/16 07:24 Test: GLUCOSE, FASTING; Value: 136; Range: 83-110; Abnormal: Above high normal; Units: MG/DL; Status: F Test: BLOOD UREA NITROGEN; Value: 23; Range: 7-18; Abnormal: Above high normal; Units: MG/DL; Status: F Test: CREATININE FOR GFR; Value: 1.10; Range: 0.70-1.30; Units: MG/DL; Status: F Test: GLOMERULAR FILTRATION RATE; Value: > 60.0; Range: >35; Status: F Test: SODIUM LEVEL; Value: 140; Range: 136-145; Units: MEQ/L; Status: F Test: POTASSIUM SERUM; Value: 3.5; Range: 3.5-5.1; Units: MEQ/L; Status: F Test: CHLORIDE LEVEL; Value: 102; Range: 98-107; Units: MEQ/L; Status: F Test: CARBON DIOXIDE LEVEL; Value: 26; Range: 21-32; Units: MEQ/L; Status: F Test: ANION GAP; Value: 12; Range: 8-16; Units: MEQ/L; Status: F Test: CALCIUM LEVEL; Value: 8.1; Range: 8.8-10.2; Abnormal: Below low normal; Units: MG/DL; Status: F Test: AST/SGOT; Value: 34; Range: 15-37; Units: U/L; Status: F Test: ALT/SGPT; Value: 32; Range: 12-78; Units: U/L; Status: F Test: ALKALINE PHOSPHATASE; Value: 96; Range: 45-117; Units: U/L; Status: F Test: BILIRUBIN,TOTAL; Value: 1.1; Range: 0.2-1.0; Abnormal: Above high normal; Units: MG/DL; Status: F Test: TOTAL PROTEIN; Value: 7.4; Range: 6.4-8.2; Units: GM/DL; Status: F Test: ALBUMIN; Value: 2.1; Range: 3.2-5.2; Abnormal: Below low normal; Units: GM/DL; Status: F Test: ALBUMIN/GLOBULIN RATIO; Value: 0.40; Range: 1.00-1.93; Abnormal: Below low normal; Status: F Test Note: ; Units are mL/min/1.73 m2 Chronic Kidney Disease Staging per NKF: Stage I & II GFR >=60 Normal to Mildly Decreased Stage III GFR 30-59 Moderately Decreased Stage IV GFR 15-29 Severely Decreased Stage V GFR <15 Very Little GFR Left ESRD GFR <15 on GENERAL SURGEON Lab Order: TROPONIN; SPEC'M 10/19/16 23:08 Test: TROPONIN I; Value: 0.23; Range: < 0.10; Abnormal: Above high normal; Units: NG/ML; Status: F Test Note: ; Troponin I Reference Interval for [facility] LOCI: 99th Percentile= 0.00-0.045 ng/ml Risk Stratification: <= 0.10 ng/ml Decreased Risk for Adverse Clinical Events. 0.10-1.50 ng/ml Increased Risk for Adverse Clinical Events. Evaluation of additional criterion and/or repeat testing in 2-6 hours is suggested to rule out myocardial damage. >= 1.50 ng/ml Indicative of Myocardial Injury. Lab Order: LACTIC ACID LEVEL, LACTATE; SPEC'M 10/19/16 23:08 Test: LACTIC ACID LEVEL, LACTATE; Value: 1.4; Range: 0.4-2.0; Units: MMOL/L; Status: F Lab Order: SPUTUM CULTURE AND GRAM STAIN; SPEC'M 10/19/16 20:52 Test: GRAM STAIN; Value: GRAM STAIN RESULT; Status: F Test: GRAM STAIN; Value: QUALITY: GOOD; Status: F Test: GRAM STAIN; Value: MODERATE EPITHELIAL CELLS; Status: F Test: GRAM STAIN; Value: FEW WBCS; Status: F Test: GRAM STAIN; Value: MANY GRAM POSITIVE COCCI; Status: F Test: GRAM STAIN; Value: MANY GRAM NEGATIVE RODS; Status: F Test: GRAM STAIN; Value: MANY GRAM POSITIVE RODS; Status: F Lab Order: ARTERIAL BLOOD GAS; 10/20/16 04:47 Test: ABG pH (ARTERIAL); Value: 7.516; Range: 7.350-7.450; Abnormal: Above high normal; Units: UNITS; Status: F Test: ABG PARTIAL PRESSURE CO2; Value: 28.9; Range: 35.0-45.0; Abnormal: Below low normal; Units: mmHg; Status: F Test: ABG PARTIAL PRESSURE O2; Value: 55.9; Range: 75.0-100.0; Abnormal: Below low normal; Units: mmHg; Status: F Test: ABG TOTAL CO2; Value: 23.7; Range: 23.0-31.0; Units: MEQ/L; Status: F Test: ABG HCO3; Value: 22.9; Range: 22.0-26.0; Units: MEQ/L; Status: F Test: ABG BASE EXCESS; Value: 0.9; Range: -2.0-2.0; Status: F Test: ABG STANDARD HCO3; Value: 25.1; Range: 22.0-26.0; Units: MEQ/L; Status: F Test: ABG O2 SATURATION; Value: 89.2; Range: 95.0-99.0; Abnormal: Below low normal; Units: %; Status: F Lab Order: MAGNESIUM LEVEL; 10/20/16 07:24 Test: MAGNESIUM LEVEL; Value: 2.0; Range: 1.8-2.4; Units: MG/DL; Status: F Lab Order: TROPONIN; 10/20/16 07:24 Test: TROPONIN I; Value: 0.20; Range: < 0.10; Abnormal: Above high normal; Units: NG/ML; Status: F Test Note: ; Troponin I Reference Interval for [employer] LOCI: 99th Percentile= 0.00-0.045 ng/ml Risk Stratification: <= 0.10 ng/ml Decreased Risk for Adverse Clinical Events. 0.10-1.50 ng/ml Increased Risk for Adverse Clinical Events. Evaluation of additional criterion and/or repeat testing in 2-6 hours is suggested to rule out myocardial damage. >= 1.50 ng/ml Indicative of Myocardial Injury. Lab Order: URINALYSIS; SPEC'M 10/20/16 16:57 Test: APPEARANCE, URINE; Value: CLEAR; Range: CLEAR; Status: F Test: COLOR, URINE; Value: YELLOW; Range: YELLOW; Status: F Test: PH,URINE; Value: 5.0; Range: 5.0-9.0; Units: UNITS; Status: F Test: SPECIFIC GRAVITY URINE AUTO; Value: 1.010; Range: 1.002-1.035; Status: F Test: PROTEIN, URINE AUTO; Value: NEGATIVE; Range: NEGATIVE; Units: mg/dL; Status: F Test: GLUCOSE, URINE (UA) AUTO; Value: NEGATIVE; Range: NEGATIVE; Units: mg/dL; Status: F Test: KETONE, URINE AUTO; Value: NEGATIVE; Range: NEGATIVE; Units: mg/dL; Status: F Test: UROBILINOGEN, URINE AUTO; Value: 0.2; Range: 0.0-2.0; Units: mg/dL; Status: F Test: BILIRUBIN, URINE AUTO; Value: NEGATIVE; Range: NEGATIVE; Status: F Test: NITRITE, URINE AUTO; Value: NEGATIVE; Range: NEGATIVE; Status: F Test: LEUKOCYTE ESTERASE, URINE AUTO; Value: NEGATIVE; Range: NEGATIVE; Status: F Test: BLOOD, URINE BLOOD; Value: 2+; Range: NEGATIVE; Abnormal: Above high normal; Status: F Test: WBC, URINE AUTO; Value: 1; Range: 0-3; Units: /HPF; Status: F Test: RBC, URINE AUTO; Value: 16; Range: 0-3; Abnormal: Above high normal; Units: /HPF; Status: F Test: BACTERIA, URINE AUTO; Value: NEGATIVE; Range: NEGATIVE; Status: F Test: SQUAMOUS EPITHELIAL CELL UR AU; Value: 0; Range: 0-6; Units: /HPF; Status: F Test: HYALINE CAST, URINE AUTO; Value: 0; Range: 0-1; Units: /LPF; Status: F Lab Order: C REACTIVE PROTEIN QUANTITATIV; SPEC'M 10/20/16 07:24 Test: C REACTIVE PROTEIN QUANTITATIV; Value: 17.80; Range: 0.00-0.30; Abnormal: Above high normal; Units: MG/DL; Status: F Lab Order: ARTERIAL BLOOD GAS; SPEC'M 10/20/16 17:10 Test: ABG pH (ARTERIAL); Value: 7.520; Range: 7.350-7.450; Abnormal: Above high normal; Units: UNITS; Status: F Test: ABG PARTIAL PRESSURE CO2; Value: 31.9; Range: 35.0-45.0; Abnormal: Below low normal; Units: mmHg; Status: F Test: ABG PARTIAL PRESSURE O2; Value: 77.9; Range: 75.0-100.0; Units: mmHg; Status: F Test: ABG TOTAL CO2; Value: 26.4; Range: 23.0-31.0; Units: MEQ/L; Status: F Test: ABG HCO3; Value: 25.5; Range: 22.0-26.0; Units: MEQ/L; Status: F Test: ABG BASE EXCESS; Value: 3.1; Range: -2.0-2.0; Abnormal: Above high normal; Status: F Test: ABG STANDARD HCO3; Value: 27.2; Range: 22.0-26.0; Abnormal: Above high normal; Units: MEQ/L; Status: F Test: ABG O2 SATURATION; Value: 95.5; Range: 95.0-99.0; Units: %; Status: F Radiology Order: Chest, 2 View (pa\E\lat) Test: Chest, 2 View (pa\E\lat) REASON FOR EXAMINATION: Shortness of Breath; Chest x-ray: Two views.; ; History: Shortness of breath.; ; Comparison chest x-ray October 15, 2016.; ; Findings: EKG monitoring electrodes and oxygen delivery tubing are seen. There; is a pattern of diffuse extensive interstitial opacification of the lung martínez; particularly the left base right upper lung zone and right base area. There is; some sparing in the left upper lung zone. Pattern is radiographically unchanged; from October 15, 2016. It is much more pronounced than the interstitial fibrosis; pattern seen on February 21, 2016. Heart is not enlarged. No pleural effusion is; seen.; ; Impression:; ; Progressive and now marked diffuse interstitial lung disease; fibrosis versus; other. Some sparing in the left upper lung zone. No significant change from the; most recent prior study of October 15, 2016.; ; ; Signed by; Joaquin Sanders MD 10/19/2016 02:50 P; Radiology Order: EKG-ADULT Test: EKG-ADULT REASON FOR EXAMINATION: Shortness of Breath; Stationary ECG Study; [facility] - ED; ; Test Date: 2016-10-19; Pat Name: ANDRE PAZ Department:; Room: -; Gender: M [employer]: ct; : 1935 Requested By: VIJI MOREJON; Order Number: [id number] Reading MD: Derek Blake; Measurements; Intervals [place]; Rate: 115 P: 51; LA: 158 QRS: 28; QRSD: 84 T: 20; QT: 315; QTc: 437; Interpretive Statements; SINUS TACHYCARDIA WITH FREQUENT SUPRAVENTRICULAR PREMATURE COMPLEXES; NONSPECIFIC T-WAVE ABNORMALITY; POSSIBLE PRIOR INFERIOR INFARCT; SIMILAR TO 08/18/15 EXCEPT RATE; Electronically Signed On 10-19-2016 17:39:00 EST by Derek Blake; Radiology Order: CT Chest Angio R/O PE Test: CT Chest Angio R/O PE REASON FOR EXAMINATION: Shortness of Breath; CT of the chest, CT pulmonary angiography with IV contrast:; ; Comparison is 2015.; ; There are no emboli in the pulmonary trunk or in the central pulmonary arteries.; There are no emboli in the pulmonary lobe or segment branches.; ; There is chronic advanced interstitial fibrosis, also present on the comparison; study. However, the study today. There are bilateral superimposed alveolar; densities compatible with acute infiltrates suggesting acute on chronic and; disease bilaterally. There are small bilateral pleural effusions, also not; present previously.; ; The thoracic aorta is unremarkable except for calcified atheroma. Cardiac size; is enlarged . There are no pericardial effusions.; ; There is mediastinal adenopathy, similar to the comparison study.; ; Upper abdomen:; ; Cholelithiasis is again identified was also present previously. Visualized; portions of the liver, pancreas, spleen, adrenals and renal upper poles are; unchanged.; ; Impression:; ; ; ; Chronic interstitial fibrosis. New alveolar densities extensively throughout; both lungs today suggesting acute infiltrates on chronic fibrosis. New small; bilateral pleural effusions.; ; Chronic mediastinal lymphadenopathy. Cholelithiasis, also present previously.; Cardiomegaly without pericardial effusion.; ; ; Signed by; Tam Piedra MD 10/19/2016 04:44 P; Radiology Order: PORTABLE CHEST X-RAY Test: PORTABLE CHEST X-RAY REASON FOR EXAMINATION: hypoxia; Portable chest x-ray: Single view.; ; History: Hypoxia.; ; Comparison chest x-ray October 19, 2016.; ; Findings: EKG monitoring electrodes overlie the chest. There is extensive; interstitial lung disease throughout the lung martínez with some sparing in the; left apex again noted essentially unchanged. Mild cardiomegaly unchanged.; ; Impression:; ; Extensive diffuse interstitial lung disease essentially unchanged from the; previous day's study.; ; ; Signed by; Joaquin Sanders MD 10/20/2016 08:27 A; Outcome: 10/19 18:26 Decision to Hospitalize by Provider. le 22:55 Discharge Assessment: Patient awake, alert and oriented x 3. No cognitive and/or cf2 functional deficits noted. Patient verbalized understanding of disposition instructions. Patient awake and alert. Oriented to person, place and time. patient administered narcotics - no. The following High Risk Discharge criteria are identified: None. Admitted to PCU. Condition: improved. CT Study completed. Admission hand-off: Report called to report to hold nurse. Property :Personal belongings accompany Pt. 10/20 17:43 Patient left the ED. aa3 Signatures: Dispatcher [employer] EDMS Derek Blake MD MD pc Sleeman, Kacey, RN RN Mera De La Torre, Reg Reg gb Wendy, Neha, Reg Reg lg Viji Lassiter, ALLERGY AND IMMUNOLOGY SPECIALIST ALLERGY AND IMMUNOLOGY SPECIALIST Flash Nevarez, CORPORATE PHYSICAL SECURITY SUPERVISOR CORPORATE PHYSICAL SECURITY SUPERVISOR dd6 Ashlyn Vela,RN RN rs3 Spencer Chand RN RN ml6 Janak Brewer bb3 Tiffany Topete, CORPORATE PHYSICAL SECURITY SUPERVISOR CORPORATE PHYSICAL SECURITY SUPERVISOR oziel Giovana Faith, CORPORATE PHYSICAL SECURITY SUPERVISOR CORPORATE PHYSICAL SECURITY SUPERVISOR ct3 Gladis Osman, RN RN sls1 Gian Vaughn,RT RT rs5 Susana Richardson, CORPORATE PHYSICAL SECURITY SUPERVISOR CORPORATE PHYSICAL SECURITY SUPERVISOR tmm1 Eduardo Rios,RN RN jmb Kamille House,RN RN aa3 Thomas Brothers, CORPORATE PHYSICAL SECURITY SUPERVISOR CORPORATE PHYSICAL SECURITY SUPERVISOR jlf Salima Arthur,RN RN Kuldip Khoury,RN RN mb9 Ru Taylor,RT RT cs15 Eli Flores,RN RN cf2 Chart Complete MTDD
[2016-10-22 19:47] VITALS: BP 126/73
[2016-10-22 21:46] LABS: MAGNESIUM LEVEL 2.4 MG/DL (1.8-2.4); POTASSIUM SERUM 4.1 MEQ/L (3.5-5.1)
[2016-10-22 23:25] VITALS: BP 138/71
[2016-10-23] MEDS ORDERED: FUROSEMIDE 40 MG/4 ML VIAL (J1940) IV ONE (00:30)
[2016-10-23] MEDS: NITROGLYCERIN 2% OINT 1 GM *U/D* PKT TOP SCH ×4 (01:49→17:43)
[2016-10-23 04:22] VITALS: BP 128/58
[2016-10-23 05:40] LABS: BASO # 0.2 K/mm3 (0.0-0.2); EOS % 0.3 % (0.0-3.0); LARGE UNSTAINED CELL # 0.1 K/mm3 (0.0-0.4); LARGE UNSTAINED CELL % 0.7 % (0.0-4.0); LYMPH # 1.5 K/mm3 (1.5-4.5); LYMPH % 8.5 % (24.0-44.0); MEAN CORPUSCULAR HEMOGLOBIN 30.2 pg (27.0-33.0); MEAN CORPUSCULAR HGB CONC 33.3 g/dl (32.0-36.5); MEAN CORPUSCULAR VOLUME 90.5 fl (80.0-96.0); MONO # 0.5 K/mm3 (0.0-0.8); MONO % 3.1 % (0.0-5.0); NEUTROPHILS # 14.2 K/mm3 (1.8-7.7); NEUTROPHILS % 86.3 % (36.0-66.0); PLATELET COUNT, AUTOMATED 221 k/mm3 (150-450); RED CELL DISTRIBUTION WIDTH 15.5 % (11.5-14.5); WHITE BLOOD COUNT 16.4 K/mm3 (4.0-10.0)
[2016-10-23] MEDS: LEVOTHYROXINE 0.075 MG TAB (75 MCG) PO SCH (05:54)
[2016-10-23] MEDS: HEPARIN SOD (PORCINE) 5000 UNITS/ML VIAL SQ SCH ×3 (05:54→20:16)
[2016-10-23 06:07] LABS: ALBUMIN 2.1 GM/DL (3.2-5.2); ALBUMIN/GLOBULIN RATIO 0.46 (1.00-1.93); ALKALINE PHOSPHATASE 89 U/L (45-117); ALT/SGPT 111 U/L (12-78); ANION GAP 9 MEQ/L (8-16); AST/SGOT 63 U/L (15-37); BILIRUBIN,TOTAL 0.7 MG/DL (0.2-1.0); BLOOD UREA NITROGEN 38 MG/DL (7-18); CALCIUM LEVEL 7.9 MG/DL (8.8-10.2); CARBON DIOXIDE LEVEL 31 MEQ/L (21-32); CHLORIDE LEVEL 101 MEQ/L (98-107); CREATININE FOR GFR 1.08 MG/DL (0.70-1.30); GLOMERULAR FILTRATION RATE > 60.0 (>35); GLUCOSE, FASTING 145 MG/DL (83-110); MAGNESIUM LEVEL 2.2 MG/DL (1.8-2.4); POTASSIUM SERUM 3.7 MEQ/L (3.5-5.1); SODIUM LEVEL 141 MEQ/L (136-145); TOTAL PROTEIN 6.7 GM/DL (6.4-8.2)
[2016-10-23] MEDS ORDERED: POTASSIUM CHLORIDE 10 MEQ SR TABLET PO ONE ×2 (06:30→08:45)
[2016-10-23 08:00] VITALS: BP 120/57
[2016-10-23] MEDS ORDERED: LevoFLOXacin 250 MG in APPROPRIATE DILUENT 1 EA IV SCH (08:30)
[2016-10-23] MEDS: PHENAZOPYRIDINE 100 MG TAB PO SCH (08:59)
[2016-10-23] MEDS: predniSONE 10 MG TAB PO SCH (09:00)
[2016-10-23] MEDS: MULTIVITAMINS/MINERALS THERAP 1 TAB PO SCH (09:00)
[2016-10-23] MEDS: METOPROLOL TART 25 MG TABLET PO SCH ×2 (09:07→20:16)
--- NOTE | 2016-10-23 09:45 | REP ---
Chest x-ray: Two views. History: Hypoxemia. Findings: Comparison chest x-ray is from October 21, 2016. Diffuse interstitial infiltrates persist on today's chest x-ray unchanged. Oxygen tubing and EKG monitoring electrodes are again seen. Heart size is unchanged. Impression: Widespread interstitial lung disease again noted. No significant radiographic change. Signed by Joaquin Sanders MD 10/23/2016 09:51 A
[2016-10-23 12:00] VITALS: BP 137/61
[2016-10-23 16:00] VITALS: BP 150/72
[2016-10-23] MEDS: IPRATROPIUM 0.5MG/ALBUTEROL 2.5MG INH SOL UD 3ML (DUONEB)(J7620) NEB SCH ×3 (16:00→23:39)
[2016-10-23] MEDS ORDERED: ALBUTEROL SULFATE 2.5 MG/0.5 ML INH NEB SOLN INH PRN (16:15)
[2016-10-23 17:38] VITALS: BP 138/63
--- NOTE | 2016-10-23 17:41 | IPNPDOC ---
Text Note Date of Service The patient was seen on 10/23/16 at 17:39. NOTE Subjective: Shortness of breath continues to improve. Had another episode of nonsustained V. tach, asymptomatic. No chest pain/palpitations. Objective: Vitals: (see below) General: No acute distress, laying comfortably in bed. HEENT: Moist mucous membranes. Neck: No JVD or lymphadenopathy Cardiac: RRR, No murmurs Pulm: Coarse and fine crackles b/l. No wheezing, mild rhonchi bilaterally. Abd: NT/ND + BS Ext: No edema or cyanosis Labs (see below) Images: Chest x-ray on 10/20/16 Impression: Progressive and now marked diffuse interstitial lung disease; fibrosis versus other. Some sparing in the left upper lung zone. No significant change from the most recent prior study of October 15, 2016. CTA Chest 10/20/16 Impression:Chronic interstitial fibrosis. New alveolar densities extensively throughout both lungs today suggesting acute infiltrates on chronic fibrosis. New small bilateral pleural effusions. Chronic mediastinal lymphadenopathy. Cholelithiasis, also present previously. Cardiomegaly without pericardial effusion. CXR 10/21/16 Impression: Extensive interstitial infiltrates again noted. Echocardiogram 10/21/16 IMPRESSION: 1. Normal left ventricular size with mild to moderate increased left ventricular wall thickness. Left ventricular systolic function is normal with an estimated global left ventricular systolic ejection fraction of 55%. 2. Aortic valve sclerosis with mild aortic regurgitation. 3. Mitral annulus calcification with mildly enlarged left atrium and mild to moderate mitral regurgitation. 4. Mild tricuspid regurgitation with a normal calculated pulmonary artery systolic pressure, probably underestimated. Assessment/Plan 1. Acute hypoxic respiratory failure, with underlying pulmonary fibrosis. This does appear to be mixed picture 2/2 Klebsiella pneumonia as well as pulmonary congestion. Patient is currently on broad-spectrum antibiotics, narrowed down to levaquin. The patient also appears to have pulmonary congestion on presentation as well and he has been diuresed. His creatinine has started to rise afterwards Lasix has been temporarily held. Echocardiogram (see above). Appreciate Dr. Velásquez's input. 2. Elevated troponin- this is likely secondary to demand ischemia. No significance ST changes on EKG. It was normal with her this is secondary to an infectious process for which the patient is being treated with broad-spectrum antibiotics versus strain from CHF. His troponin is trending down. Cardiology has been consulted. 3. Nonsustained V. tach- asymptomatic. Echocardiogram (see above). Potassium replaced. We'll maintain K greater than 4 and mag greater than 2. Beta shanda dose increased. If patient has recurrent episodes will have cardiology consulted otherwise will have patient follow up outpatient. Cardiology has been consulted. 3. Pulmonary fibrosis- patient follows up with Dr. Rushing outpatient. 4. Hypothyroidism- continue home meds 5. Acute kidney injury- likely secondary to volume depletion. Will continue to hold Lasix for now and monitor. 6. NATHAN on CPAP DVT prophy: Heparin subcutaneous VS,Fishbone, I+O VS, Fishbone, I+O Laboratory Tests 10/22/16 21:21 10/23/16 05:12 Calcium Level 7.9 L, Aspartate Amino Transf (AST/SGOT) 63 H, Alanine Aminotransferase (ALT/SGPT) 111 H, Alkaline Phosphatase 89, Total Bilirubin 0.7 , Total Protein 6.7, Albumin 2.1 L, Red Blood Count 4.18 L, Mean Corpuscular Volume 90.5, Mean Corpuscular Hemoglobin 30.2, Mean Corpuscular Hemoglobin Concent 33.3, Red Cell Distribution Width 15.5 H, Neutrophils (%) (Auto) 86.3 H , Lymphocytes (%) (Auto) 8.5 L, Monocytes (%) (Auto) 3.1, Eosinophils (%) (Auto ) 0.3, Basophils (%) (Auto) 1.0, Neutrophils # (Auto) 14.2 H, Lymphocytes # ( Auto) 1.5, Monocytes # (Auto) 0.5, Eosinophils # (Auto) 0.0, Basophils # (Auto) 0.2 Vital Signs Date Time Temp Pulse Resp B/P Pulse Ox O2 Delivery O2 Flow Rate FiO2 10/23/16 16:00 96.9 88 18 150/72 96 Nasal Cannula 3.0 10/21/16 04:00 35 I&O- Last 24 Hours up to 6 AM 10/23/16 06:00 Intake Total 620 ml Output Total 875 ml Balance -255 ml ALETHA MENG MD Oct 23, 2016 17:40
[2016-10-23 20:00] VITALS: BP 145/65; PULSE 84
[2016-10-24] VITALS (7 sets, daily range): BP systolic 111–152; BP diastolic 58–64; PULSE 83–92
[2016-10-24 00:07] LABS: ORGANISM ID Not indicated. (.); SPECIMEN SOURCE Urine (.)
[2016-10-24] MEDS: NITROGLYCERIN 2% OINT 1 GM *U/D* PKT TOP SCH ×2 (01:06→06:18)
[2016-10-24] MEDS: IPRATROPIUM 0.5MG/ALBUTEROL 2.5MG INH SOL UD 3ML (DUONEB)(J7620) NEB SCH ×6 (03:59→23:25)
[2016-10-24 04:38] LABS: BASO % 0.3 % (0.0-1.0); EOS % 0.3 % (0.0-3.0); LARGE UNSTAINED CELL # 0.1 K/mm3 (0.0-0.4); LARGE UNSTAINED CELL % 0.5 % (0.0-4.0); LYMPH # 1.4 K/mm3 (1.5-4.5); LYMPH % 11.8 % (24.0-44.0); MEAN CORPUSCULAR HEMOGLOBIN 30.1 pg (27.0-33.0); MEAN CORPUSCULAR HGB CONC 32.2 g/dl (32.0-36.5); MEAN CORPUSCULAR VOLUME 93.5 fl (80.0-96.0); MONO # 0.3 K/mm3 (0.0-0.8); MONO % 2.8 % (0.0-5.0); NEUTROPHILS # 10.1 K/mm3 (1.8-7.7); NEUTROPHILS % 84.3 % (36.0-66.0); PLATELET COUNT, AUTOMATED 224 k/mm3 (150-450); RED CELL DISTRIBUTION WIDTH 14.6 % (11.5-14.5)
[2016-10-24 04:55] LABS: MAGNESIUM LEVEL 2.5 MG/DL (1.8-2.4); POTASSIUM SERUM 4.2 MEQ/L (3.5-5.1)
[2016-10-24 04:59] LABS: ALBUMIN 2.1 GM/DL (3.2-5.2); ALBUMIN/GLOBULIN RATIO 0.43 (1.00-1.93); ALKALINE PHOSPHATASE 84 U/L (45-117); ALT/SGPT 88 U/L (12-78); ANION GAP 10 MEQ/L (8-16); AST/SGOT 33 U/L (15-37); BILIRUBIN,TOTAL 0.6 MG/DL (0.2-1.0); BLOOD UREA NITROGEN 34 MG/DL (7-18); CALCIUM LEVEL 7.9 MG/DL (8.8-10.2); CARBON DIOXIDE LEVEL 31 MEQ/L (21-32); CHLORIDE LEVEL 102 MEQ/L (98-107); CREATININE FOR GFR 1.12 MG/DL (0.70-1.30); GLOMERULAR FILTRATION RATE > 60.0 (>35); GLUCOSE, FASTING 120 MG/DL (83-110); MAGNESIUM LEVEL 2.3 MG/DL (1.8-2.4); POTASSIUM SERUM 4.1 MEQ/L (3.5-5.1); SODIUM LEVEL 143 MEQ/L (136-145)
[2016-10-24] MEDS: HEPARIN SOD (PORCINE) 5000 UNITS/ML VIAL SQ SCH ×3 (06:17→21:28)
[2016-10-24] MEDS: LEVOTHYROXINE 0.075 MG TAB (75 MCG) PO SCH (06:17)
[2016-10-24] MEDS ORDERED: ISOSORBIDE MON. (IMDUR) 30 MG XR TAB PO SCH (09:00)
[2016-10-24] MEDS ORDERED: predniSONE 20 MG TAB PO SCH (09:00)
[2016-10-24] MEDS: predniSONE 10 MG TAB PO SCH (09:00)
[2016-10-24] MEDS ORDERED: ASPIRIN 81 MG ENTERIC TAB PO SCH (09:00)
[2016-10-24] MEDS ORDERED: cefTRIAXone SOD 1 GM in D5W MINI-BAG PLUS 50 ML IV SCH (09:00)
[2016-10-24] MEDS: FUROSEMIDE 40 MG/4 ML VIAL (J1940) IV SCH ×2 (10:29→14:20)
[2016-10-24] MEDS: METOPROLOL TART 25 MG TABLET PO SCH ×2 (10:29→21:28)
[2016-10-24] MEDS: MULTIVITAMINS/MINERALS THERAP 1 TAB PO SCH (10:29)
[2016-10-24] MEDS: BENZONATATE 100 MG CAP PO SCH ×3 (10:48→21:28)
[2016-10-24] MEDS: LIDOCAINE 4% INJ 5 ML AMP INH SCH ×2 (11:20→19:27)
[2016-10-24 17:22] LABS: VENOUS BASE EXCESS 7.7 (-2.0-2.0); VENOUS O2 SATURATION 96.5 % (60.0-80.0); VENOUS PARTIAL PRESSURE CO2 42.5 mmHg (38.0-50.0); VENOUS PARTIAL PRESSURE O2 87.5 mmHg (30.0-50.0); VENOUS STANDARD HCO3 31.5 MEQ/L; VENOUS TOTAL CO2 33.1 MEQ/L (24.0-28.0)
[2016-10-24 17:43] LABS: ANION GAP 9 MEQ/L (8-16); BLOOD UREA NITROGEN 32 MG/DL (7-18); CALCIUM LEVEL 7.6 MG/DL (8.8-10.2); CARBON DIOXIDE LEVEL 32 MEQ/L (21-32); CHLORIDE LEVEL 100 MEQ/L (98-107); CREATININE FOR GFR 1.22 MG/DL (0.70-1.30); GLOMERULAR FILTRATION RATE > 60.0 (>35); GLUCOSE, FASTING 273 MG/DL (83-110); MAGNESIUM LEVEL 2.2 MG/DL (1.8-2.4); POTASSIUM SERUM 3.8 MEQ/L (3.5-5.1); SODIUM LEVEL 141 MEQ/L (136-145)
[2016-10-24] MEDS: PIPERACILLIN/TAZOBACTAM SOD 3.375 GM in D5W MINI-BAG PLUS 50 ML IV SCH (18:39)
--- NOTE | 2016-10-24 18:42 | PHACANCOPD ---
PHARMACY VANCOMYCIN DOSING Pt Demographics Demographics Patient Age:80 , Weight:58.000 , Gender: male Adjusted Body Weight Date: 10/20/16, Adjusted Body Weight: [64.8] Kg Events Past 24 Hours Events Past 24 Hours: YES: Pending Diagnostics Vancomycin Vancomycin indication: SEPSIS Vancomycin Target Ranges: 15-20 mcg/ml Vancomycin Load Y/N: Yes Load Dose Date Time Vancomycin Load Dose: 1.5G Date: 10/20/16 Time: 1500 Vancomycin Dose Date: 10/20/16. Current Vancomycin Dose: [1G Q24H @1300] Intermittent Dosing?: No Labs Micro Microbiology 10/19/16 Blood Culture - Final, Complete NO GROWTH AFTER 5 DAYS 10/19/16 Blood Culture - Final, Complete NO GROWTH AFTER 5 DAYS 10/22/16 Clostridium difficile (PCR) - Final, Complete 10/20/16 Respiratory Virus Panel (PCR) (FAITH) - Final, Complete 10/19/16 Gram Stain - Final, Complete 10/19/16 Sputum Culture - Final, Complete Klebsiella Pneumoniae Haemophilus Influenzae Yeast Like Organism Creatinine Clearance Date:10/20/16. Creatinine Clearance: [46.6ML/MIN]. Pending Labs BLOOD AND SPUTUM CULTURE Assessment and Plan Maintaining Current Dose?: Yes Reason for dose change: No Dose Change Pharmacist Note Pharmacist Note 10/24/16: Re-initiating IV vancomycin at 1g IV Q24H for the treatment of sepsis - aiming for a goal trough of 15-20 mcg/ml. A trough has been scheduled 10/27/16 @ 1900. We will continue to monitor and make dose adjustments as needed. MOLLY AYON PHARMACY Oct 24, 2016 18:42
[2016-10-24] MEDS ORDERED: VANCOMYCIN HCL 1,000 MG, VIAL MATE ADAPTER 1 EACH in D5W 250 ML IV SCH (20:00)
[2016-10-24] MEDS ORDERED: FUROSEMIDE 40 MG/4 ML VIAL (J1940) IV SCH (21:00)
[2016-10-25 00:14] VITALS: BP 123/58
--- NOTE | 2016-10-25 00:41 | ECGEPIP ---
Stationary ECG Study [facility] Test Date: 2016-10-23 Pat Name: ERIC PAZ Department: Room: [place] [address] Gender: M [employer]: JAY : 1935 Requested By: ALETHA MENG Order Number: [id number] Reading MD: Quique Mello Measurements Intervals [place] Rate: 94 P: 34 CT: 149 QRS: 7 QRSD: 93 T: 6 QT: 348 QTc: 437 Interpretive Statements SINUS RHYTHM WITH FREQUENT VENTRICULAR PREMATURE COMPLEXES WITH OCCASIONAL SUPRAVENTRICULAR PREMATURE COMPLEXES MODERATE VOLTAGE CRITERIA FOR LVH, CONSIDER NORMAL VARIANT NONSPECIFIC T-WAVE ABNORMALITY ABNORMAL RHYTHM ECG Last tracing on 10/20/2016 at 22:38:38. Heart rate is now slower otherwise no significant changes Electronically Signed On 10-25-2016 0:40:55 EST by Quique Mello
[2016-10-25] MEDS: PIPERACILLIN/TAZOBACTAM SOD 3.375 GM in D5W MINI-BAG PLUS 50 ML IV SCH ×2 (01:43→06:33)
[2016-10-25] MEDS: IPRATROPIUM 0.5MG/ALBUTEROL 2.5MG INH SOL UD 3ML (DUONEB)(J7620) NEB SCH ×6 (04:06→23:56)
[2016-10-25 04:09] VITALS: BP 146/64
[2016-10-25 05:33] LABS: BASO # 0.1 K/mm3 (0.0-0.2); EOS # 0.1 K/mm3 (0.0-0.50); EOS % 0.9 % (0.0-3.0); LARGE UNSTAINED CELL # 0.1 K/mm3 (0.0-0.4); LARGE UNSTAINED CELL % 0.7 % (0.0-4.0); LYMPH # 1.5 K/mm3 (1.5-4.5); MEAN CORPUSCULAR HEMOGLOBIN 30.2 pg (27.0-33.0); MEAN CORPUSCULAR HGB CONC 33.5 g/dl (32.0-36.5); MONO # 0.3 K/mm3 (0.0-0.8); MONO % 2.9 % (0.0-5.0); NEUTROPHILS # 9.5 K/mm3 (1.8-7.7); NEUTROPHILS % 82.5 % (36.0-66.0); PLATELET COUNT, AUTOMATED 177 k/mm3 (150-450); RED CELL DISTRIBUTION WIDTH 15.3 % (11.5-14.5); WHITE BLOOD COUNT 11.5 K/mm3 (4.0-10.0)
[2016-10-25 06:03] LABS: ALBUMIN 1.8 GM/DL (3.2-5.2); ALBUMIN/GLOBULIN RATIO 0.39 (1.00-1.93); ALKALINE PHOSPHATASE 67 U/L (45-117); ALT/SGPT 56 U/L (12-78); ANION GAP 7 MEQ/L (8-16); AST/SGOT 16 U/L (15-37); BILIRUBIN,TOTAL 0.7 MG/DL (0.2-1.0); BLOOD UREA NITROGEN 30 MG/DL (7-18); CALCIUM LEVEL 8.3 MG/DL (8.8-10.2); CARBON DIOXIDE LEVEL 33 MEQ/L (21-32); CHLORIDE LEVEL 100 MEQ/L (98-107); CHOLESTEROL LEVEL 127 MG/DL (<200); CREATININE FOR GFR 1.04 MG/DL (0.70-1.30); GLOMERULAR FILTRATION RATE > 60.0 (>35); GLUCOSE, FASTING 132 MG/DL (83-110); MAGNESIUM LEVEL 2.2 MG/DL (1.8-2.4); POTASSIUM SERUM 3.4 MEQ/L (3.5-5.1); SODIUM LEVEL 140 MEQ/L (136-145); TOTAL PROTEIN 6.4 GM/DL (6.4-8.2); TRIGLYCERIDES LEVEL 115 MG/DL (<150)
[2016-10-25] MEDS: LEVOTHYROXINE 0.075 MG TAB (75 MCG) PO SCH (06:33)
[2016-10-25] MEDS: HEPARIN SOD (PORCINE) 5000 UNITS/ML VIAL SQ SCH (06:33)
[2016-10-25] MEDS: LIDOCAINE 4% INJ 5 ML AMP INH SCH ×2 (07:11→20:53)
[2016-10-25] MEDS ORDERED: POTASSIUM CHLORIDE 10 MEQ SR TABLET PO ONE (08:00)
[2016-10-25] MEDS ORDERED: MORPHINE 2 MG/ML 1ML SYRINGE IV PRN (09:00)
[2016-10-25] MEDS: BENZONATATE 100 MG CAP PO SCH ×3 (09:00→20:04)
[2016-10-25] MEDS: **NOTE PATIENT COMMENT** MISC XX SCH (09:00)
[2016-10-25] MEDS: MULTIVITAMINS/MINERALS THERAP 1 TAB PO SCH (09:00)
[2016-10-25] MEDS ORDERED: SCOPOLAMINE 1.5 MG TRANSDERMAL TD PRN (09:00)
[2016-10-25] MEDS ORDERED: LORazepam 2 MG/ML VIAL (J2060) IV PRN (09:00)
--- NOTE | 2016-10-25 11:31 | IPNPDOC ---
Text Note Date of Service The patient was seen on 10/25/16 at 11:27. NOTE Subjective: Shortness of breath has worsened and patient is getting tired. He states that he would like to be made DNR/DNI with comfort measures only. I have discussed this with the daughter and the nurse at bedside and we have updated the MOLST form. Objective: Vitals: (see below) General: No acute distress, laying comfortably in bed. HEENT: Moist mucous membranes. Neck: No JVD or lymphadenopathy Cardiac: RRR, No murmurs Pulm: Coarse and fine crackles b/l. No wheezing, mild rhonchi bilaterally. Abd: NT/ND + BS Ext: No edema or cyanosis Labs (see below) Images: Chest x-ray on 10/20/16 Impression: Progressive and now marked diffuse interstitial lung disease; fibrosis versus other. Some sparing in the left upper lung zone. No significant change from the most recent prior study of October 15, 2016. CTA Chest 10/20/16 Impression:Chronic interstitial fibrosis. New alveolar densities extensively throughout both lungs today suggesting acute infiltrates on chronic fibrosis. New small bilateral pleural effusions. Chronic mediastinal lymphadenopathy. Cholelithiasis, also present previously. Cardiomegaly without pericardial effusion. CXR 10/21/16 Impression: Extensive interstitial infiltrates again noted. Echocardiogram 10/21/16 IMPRESSION: 1. Normal left ventricular size with mild to moderate increased left ventricular wall thickness. Left ventricular systolic function is normal with an estimated global left ventricular systolic ejection fraction of 55%. 2. Aortic valve sclerosis with mild aortic regurgitation. 3. Mitral annulus calcification with mildly enlarged left atrium and mild to moderate mitral regurgitation. 4. Mild tricuspid regurgitation with a normal calculated pulmonary artery systolic pressure, probably underestimated. Assessment/Plan 1. Acute hypoxic respiratory failure 2. Klebsiella pneumonia and Haemophilus influenza 3. Mild to moderate acute lung injury 4. Pulmonary congestion, we'll diuresed at a -5 L balance 5. Elevated troponin secondary to demand ischemia 6. Nonsustained V. tach 7. Significant pulmonary fibrosis 8. Hypothyroidism 9. Obstructive sleep apnea on CPAP At this point the patient would like to be made comfort measures only. He also requested that all his medications/Abx/labs be discontinued. We will have hospice evaluate patient tomorrow. VS,Fishbone, I+O VS, Fishbone, I+O Laboratory Tests 10/24/16 17:03 Calcium Level 7.6 L 10/25/16 05:19 Calcium Level 8.3 L, Aspartate Amino Transf (AST/SGOT) 16, Alanine Aminotransferase (ALT/SGPT) 56, Alkaline Phosphatase 67, Total Bilirubin 0.7, Triglycerides Level 115, Cholesterol Level 127, HDL Cholesterol 35 L, LDL Cholesterol 69.0, Total Protein 6.4, Albumin 1.8 L, Red Blood Count 3.72 L, Mean Corpuscular Volume 90.0, Mean Corpuscular Hemoglobin 30.2, Mean Corpuscular Hemoglobin Concent 33.5, Red Cell Distribution Width 15.3 H, Neutrophils (%) (Auto) 82.5 H, Lymphocytes (%) (Auto) 12.0 L, Monocytes (%) ( Auto) 2.9, Eosinophils (%) (Auto) 0.9, Basophils (%) (Auto) 1.0, Neutrophils # ( Auto) 9.5 H, Lymphocytes # (Auto) 1.5, Monocytes # (Auto) 0.3, Eosinophils # ( Auto) 0.1, Basophils # (Auto) 0.1 Vital Signs Date Time Temp Pulse Resp B/P Pulse Ox O2 Delivery O2 Flow Rate FiO2 10/25/16 08:00 Aerosol Mask 35 10/25/16 04:09 97.1 74 24 146/64 91 10/25/16 04:00 8.0 I&O- Last 24 Hours up to 6 AM 10/25/16 06:00 Intake Total 860 ml Output Total 2650 ml Balance -1790 ml ALETHA MENG MD Oct 25, 2016 11:30
[2016-10-26] MEDS: IPRATROPIUM 0.5MG/ALBUTEROL 2.5MG INH SOL UD 3ML (DUONEB)(J7620) NEB SCH ×7 (03:40→23:45)
--- NOTE | 2016-10-26 08:29 | REP ---
Portable chest, single frontal view, the patient upright: Comparisons are 10/23/2016 and 02/21/2016. There are diffuse bilateral interstitial and alveolar infiltrates, similar to 2016, but significantly worsened from 02/21/2016. There are no pleural effusions. Cardiac size is normal for positioning. The clinton, mediastinum, and bony thorax are unchanged. Signed by Tam Piedra MD 10/24/2016 08:21 A
--- NOTE | 2016-10-26 08:31 | IPN ---
DATE: 10/24/2016 SUBJECTIVE: This is an 80-year-old male who was seen and examined at bedside. Overnight, had 16 beats of nonsustained ventricular tachycardia. Electrolytes were checked at that time and were normal. Feels worse with his breathing this morning compared to yesterday. No chest pain or palpitations during the episode of ventricular tachycardia. Also, yesterday was on nasal cannula and overnight required to be on a Ventimask. OBJECTIVE: VITAL SIGNS: Blood pressure 145/64, heart rate 88, temperature 96.7, respiration rate 24, pulse oximetry 92% on Ventimask 35%. Intake and output in the last 24 hours: 300 and 1625. GENERAL: The patient is lying in bed comfortable, wearing a Ventimask. He is alert, awake, oriented times three. Pleasant, cooperative. Chronically ill-appearing. Family at bedside. HEENT: Normocephalic, atraumatic. Moist oral mucosa. CHEST: Some accessory muscle use. Breath sounds decreased in the lung bases with crackles and coarse breath sounds throughout. HEART: Regular rate and rhythm. Could not appreciate any murmurs, rubs or gallops. ABDOMEN: Soft, nontender, nondistended. Bowel sounds present. No guarding. No rebound. EXTREMITIES: No pedal edema. Pedal pulses present bilaterally. LABORATORY DATA: WBC 12, improved from yesterday 16.4, hemoglobin 12.4, hematocrit 39.7, platelets 224. Sodium 143, potassium 4.1, chloride 102, carbon dioxide 31, BUN 34, creatinine 1.12, glucose 120, lactic acid 7.9, magnesium 2.5. AST 33, ALT 88, alkaline phosphatase 84. C-reactive protein 8.8. BNP repeat was 810. RSV negative. Gram-stain showed Klebsiella pneumoniae and influenza. Chest x-ray showed persistent and worsening diffuse interstitial infiltrates with possible congestion. IMPRESSION/PLAN: Mr. Lozano is an 80-year-old male who presented with shortness of breath and found to have acute respiratory failure secondary to pneumonia and underlying worsening pulmonary fibrosis with recurrent nonsustained ventricular tachycardia. 1. Nonsustained ventricular tachycardia. The patient again had 16 beats of nonsustained ventricular tachycardia last night. Electrolytes were checked and were within normal range. Continued to be asymptomatic at that time. Dr. Mello was consulted. We will followup with his recommendations. 2. Acute on chronic respiratory failure, likely secondary to a combination of underlying infection, worsening pulmonary fibrosis and/or pulmonary congestion. We have resumed his diuresis today to hopefully improve his respiratory symptoms. On day five of antibiotics. Previously on Zosyn; however, this was changed to Levaquin and now we have started him on Rocephin, as the sputum culture grew Klebsiella and Haemophilus influenzae. Continue nebulizer treatments scheduled and as needed. Prednisone dose was increased from 10 mg to 40 today, and hopefully it will improve his symptoms. Greatly appreciate Dr. Velásquez's and Dr. Rushing's assistance. 3. Troponinemia. Highest troponin on admission was 0.25. This was believed to be secondary to demand ischemia from his infection and also strain from his congestive heart failure (CHF) on presentation. Troponin has trended down. 4. Obstructive sleep apnea. On home CPAP at night and naps. Now at 15 cm of water. 5. Acute kidney injury, resolved. Monitor renal function while being on diuresis. 6. Hypothyroidism. Continue levothyroxine. 7. Deep vein thrombosis (DVT) prophylaxis sequential compression device (SCD), thromboembolic compression stockings (TEDS) and heparin. My preceptor for this patient encounter was Dr. Echevarria. The preceptor was physically present in the building during the encounter and was fully available. As needed, all aspects of the patient interview, examination, medical decision making process, and medical care plan development were reviewed and approved by the preceptor. The preceptor is aware and concurs with the plan as stated in the body of this note and will attest to such by his/her cosignature. GUILLERMINA
--- NOTE | 2016-10-26 08:32 | CR ---
DATE OF CONSULTATION: 10/24/2016 REFERRING PROVIDER: Dr. Mir Echevarria REASON FOR CONSULTATION: Ventricular tachycardia. HISTORY OF PRESENT ILLNESS: 80-year-old male with a history of idiopathic pulmonary fibrosis who came to the hospital on 10/19/2016 with increasing shortness of breath, increasing cough. He also stated that on the night prior to coming to the hospital he fell off his bed. He did complain of some chest pain, but pleuritic in nature with the cough. There are no palpitations. Upon arrival at the emergency room, his vital signs reveal a blood pressure of 181/84 with a pulse of 127, respirations 22, and his temperature was 96.3 degrees Fahrenheit with an oxygen saturation reported to be 100%. His laboratories revealed a BUN and creatinine of 25/1.34, and his serum troponin was minimally abnormal at 0.25. His serum BNP was up to 3060. His chest x-ray revealed diffuse interstitial lung disease and fibrosis, and he had a chest CT that revealed new alveolar densities of both lungs, acute on chronic underlying pulmonary fibrosis. There was also some new small bilateral pleural effusions. He was being treated on the floor for pneumonia and heart failure and developed some worsening kidney function. He was found on telemetry on 10/21/2016 to have one of ventricular tachycardia up to 8 beats and cardiology consultation was called. Mr. Andre Lozano was seen yesterday in the evening and also today. This morning, his daughter was at bedside. He denies any chest pain or palpitations. According to the daughter, his shortness of breath and cough have been stable and the patient has been seeing Dr. Rushing for his underlying lung disease. 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 According to the daughter, his symptoms have been getting worse. He denies any hemoptysis or fever. There is no report of bleeding. There is no nausea, vomiting, diarrhea, melena or hematemesis. He has a past medical history positive for pulmonary fibrosis and hypothyroidism. Otherwise, he denies any history of hypertension, hyperlipidemia, diabetes mellitus, coronary artery disease, myocardial infarction, significant valvular heart disease, atrial fibrillation, CVA, cardiomyopathy, sudden cardiac . His echocardiogram done this hospitalization revealed a low normal global left ventricular systolic function with moderate mitral regurgitation. PAST SURGICAL HISTORY: Positive for hemorrhoidectomy. FAMILY HISTORY: Noncontributory. SOCIAL HISTORY: The patient lives with his . He is a former smoker. He had stopped smoking more than ten years ago. He denies any ETOH abuse. He has grownup children living in the area and are very supportive. ALLERGIES: BEE VENOM. ADVANCED DIRECTIVES: The patient is a FULL CODE. PHYSICAL EXAMINATION: The patient is alert and oriented and in no acute distress. His last vital signs this morning reveal a blood pressure of 134/58 with a pulse of 82, respirations 22, and a maximum temperature is 97.4 degrees Fahrenheit with an oxygen saturation of using a Venturi mask. HEENT: Examination of the head is normocephalic, atraumatic. NECK: Supple. No jugular venous distention (JVD). LUNGS: Reveal dry crackles bilaterally. No wheezing. HEART: Normal S1, S2 with premature beats. The PMI is slightly displaced inferiorly and laterally. There is no rub. There is a systolic murmur grade 2/6 at the lower left sternal border and at the apex with minimal radiation to the axilla. ABDOMEN: Soft, nontender. Bowel sounds are active. EXTREMITIES: Reveal no pitting edema. NEUROLOGIC: Examination is grossly negative for focal deficits. LABORATORY DATA: Basic metabolic panel (BMP) done today revealed a sodium of 143, potassium 4.1, chloride 102, CO2 of 31, BUN 34, creatinine 1.12, GFR more than 60, fasting glucose 120, calcium 7.9. Liver enzymes reveal a total bilirubin of 0.6, AST 33, ALT 88, alkaline phosphatase 84, total protein 7.0, and albumin 2.1. Serum magnesium is 2.5. Serum BNP on admission was 3060. Serum lactic acid was 3.7. Serum troponin on admission was 0.25. Complete blood count (CBC) done today revealed WBC 12.0, hemoglobin of 12.8, hematocrit 39.7 and platelets 224,000. ABG on admission revealed a pH of 7.51, PCO2 of 28.9, PO2 of 55.9. Serum D-dimer on admission was 2481.0. Urinalysis revealed +2 blood and 16 red blood cells. Chest x-ray on admission, 10/19/2016, revealed mild diffuse interstitial lung disease and fibrosis. No acute changes. No cardiomegaly. No manifestation of heart failure or pleural effusion. A CT angio of the chest on 10/19/2016 revealed chronic interstitial fibrosis with a new alveolar densities noted throughout both lungs. New small bilateral pleural effusion, cardiomegaly, cholelithiasis, and chronic mediastinal lymph nodes. Chest x-ray on 10/20/2016 revealed extensive diffuse interstitial lung disease, unchanged from previous study. Chest x-ray on 10/23/2016 revealed wide spread interstitial lung disease and no significant changes from prior studies. EKG on admission on 10/19/2016 at 1400:01 hours revealed normal sinus rhythm with mild velocity, mild tachycardic at 115 beats per minute, as well as premature atrial contractions (PAC) and nonspecific ST-T abnormalities. Possible prior inferior wall infarct. It was unchanged from prior study on 08/18/2015. EKG on 10/20/2016 revealed sinus tachycardia at 125 beats per minute with isolated premature atrial contractions (PAC) and PVCs. Nonspecific ST-T abnormalities. EKG on 10/20/2016 at 22:38:38 did not reveal any significant changes but a slower heart rate. Echocardiogram on 10/20/2016 revealed a left ventricular ejection fraction estimated at 55% with mild aortic regurgitation, mild to moderate mitral regurgitation and mild tricuspid regurgitation, impaired relaxation. Telemetry was reviewed and showed one of nonsustained ventricular tachycardia noted. IMPRESSION: 1. Nonsustained ventricular tachycardia, asymptomatic in this 80-year-old male with above medical complaints. Hypoxemia may be a contributing factor, but at this age she is probably at risk to have underlying lung disease. His left ventricular ejection fraction is low normal. His medications were reviewed and I will continue the same for now and he was started on long-acting nitrate with isosorbide nitrate. His nitro patch was discontinued. We will continue the beta shanda at a small dose. He might benefit from further cardiac workup as an outpatient and this was discussed with his daughter present in the room. This also will be discussed with his hose tender, Dr. Rushing. 2. Status post congestive heart failure with left ventricular diastolic dysfunction. We will continue with a small dose of diuretics and the beta shanda for now. If his kidney function is back to normal and if the blood pressure remains stable, I will consider a small dose of an ARB or ROSELYN inhibitor. 3. Status post acute kidney injury. This is improving, and he will need to be monitored while on the intravenous Lasix. 4. Hypothyroidism, being addressed. On supplement. 5. Chronic idiopathic pulmonary fibrosis and according to the family it seems that his condition is deteriorating. He will continue to follow with Dr. Molly Rushing. It was a pleasure to participate in the care of Mr. Andre Lozano for his underlying cardiac condition. I will continue to monitor along with you while he is in the hospital. Please do not hesitate to call if there are any questions.
[2016-10-26] MEDS: BENZONATATE 100 MG CAP PO SCH ×3 (08:50→20:28)
[2016-10-26] MEDS: MULTIVITAMINS/MINERALS THERAP 1 TAB PO SCH (08:50)
[2016-10-26] MEDS: ACETAMINOPHEN TAB 650MG DOSE (2X325MG) PO PRN ×2 (08:50→20:29)
[2016-10-26] MEDS: **NOTE PATIENT COMMENT** MISC XX SCH (08:50)
--- NOTE | 2016-10-26 11:06 | REP ---
Portable chest, AP view, patient sitting: Comparisons are the study performed earlier this morning, 10/23/2016 and 10/21 2016. There are diffuse bilateral interstitial and alveolar infiltrates compatible with advanced pulmonary edema. These have progressed from the prior studies and appear slightly worse from the study earlier this morning. No pleural effusions. Cardiac size mildly enlarged. Signed by Tam Piedra MD 10/24/2016 05:14 P
--- NOTE | 2016-10-26 14:00 | IPN ---
DATE: 10/26/2016 SUBJECTIVE: This is an 80-year-old male who was seen and examined at bedside. 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 Currently, it is unclear whether he will go home with hospice versus hospice house. The patient himself is adamant about going to hospice house as he feels that he will be a burden to his daughter and his . His is also elderly and is likely unable to care for him. He continues to feel worse with his breathing and tired. 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 General: The patient is lying in bed comfortable, chronically ill appearing. HEENT: Normocephalic, atraumatic. Moist oral mucosa. Neck: Supple. Trachea midline. Chest: With persistent coarse breath sounds bilateral lung bases. Regular rate and rhythm. Did not appreciate any murmurs, rubs or gallop. Abdomen was soft, nontender, nondistended. Bowel sounds heard. No guarding. Extremities: No pedal edema. Pedal pulses present bilaterally. LABORATORY DATA: None. IMPRESSION AND PLAN: Mr. Lozano is an 80-year-old male with advanced lung disease who presented with shortness of breath. 1. Acute hypoxic respiratory failure. 2. Klebsiella and H. influenza pneumonia. 3. Moderate acute lung injury. 4. Pulmonary congestion. 5. Nonsustained ventricular tachycardia. 6. Elevated troponin secondary to demand ischemia. 7. Chronic idiopathic pulmonary fibrosis. 8. History of pulmonary fibrosis, advanced. 9. Obstructive sleep apnea on CPAP. 10. Diastolic heart failure. 11. Acute kidney injury, resolved. 12. Hypothyroidism. PLAN: At this time, the patient continues to be BENCH WORKER HOLLOW HANDLE status. The patient and family will have a meeting with Patient and Family Services (PFS) today and decide whether they want to pursue home with hospice versus hospice house. Continue supportive management. My preceptor for this patient encounter was Dr. Mir Echevarria. The preceptor was physically present in the building during the encounter and was fully available. As needed, all aspects of the patient interview, examination, medical decision making process, and medical care plan development were reviewed and approved by the preceptor. The preceptor is aware and concurs with the plan as stated in the body of this note and will attest to such by his/her cosignature. GUILLERMINA
[2016-10-26] MEDS: LIDOCAINE 4% INJ 5 ML AMP INH SCH (20:00)
[2016-10-27] MEDS: IPRATROPIUM 0.5MG/ALBUTEROL 2.5MG INH SOL UD 3ML (DUONEB)(J7620) NEB SCH ×6 (04:00→23:41)
[2016-10-27] MEDS: LIDOCAINE 4% INJ 5 ML AMP INH SCH ×2 (07:23→20:25)
[2016-10-27] MEDS: MULTIVITAMINS/MINERALS THERAP 1 TAB PO SCH (09:00)
[2016-10-27] MEDS: **NOTE PATIENT COMMENT** MISC XX SCH (09:00)
[2016-10-27] MEDS: BENZONATATE 100 MG CAP PO SCH ×3 (09:00→21:58)
--- NOTE | 2016-10-27 12:13 | IPN ---
DATE OF SERVICE: 10/27/2016 SUBJECTIVE: This is an 80-year-old male who was seen and examined at bedside. Overnight, the patient continued to require increased supplemental oxygen. 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 Initially, the patient had expressed desire to go to Hospice home. However, they will not have a bed available for at least 1 week. 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 General: The patient is lying in bed at approximately a 40-degree angle. Chronically ill-appearing. Somewhat uncomfortable with his breathing. He does have his VentiMask in place. HEENT: Normocephalic, atraumatic. Moist oral mucosa. Neck: Supple. Trachea midline. Chest: Symmetric chest rise with persistent coarse breath sounds bilateral lung bases. Heart: Regular rate and rhythm. Abdomen is soft, nontender, nondistended. Bowel sounds heard. Extremities: No pedal edema. Pedal pulses present. He does have cold extremities. LABORATORY DATA: None. IMPRESSION AND PLAN: Mr. Lozano is an 80-year-old male admitted for advanced pulmonary disease. 1. Acute hypoxic respiratory failure. 2. Klebsiella and H. influenzae pneumoniae. 3. Moderate lung injury. 4. Chronic idiopathic pulmonary fibrosis. 5. Elevated troponin secondary to demand ischemia. 6. Nonsustained ventricular tachycardia (V-TACH). 7. Obstructive sleep apnea (NATHAN). 8. Acute diastolic heart failure. Treated with IV lasix. 9. Acute kidney injury, resolved. 10. Hypothyroidism. 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 Will discuss with patient and family services (PFS) regarding this. It does not seem that the patient has been taking his Ativan or morphine despite his discomfort with his breathing. Informed family and patient that he may have these medications if he is uncomfortable. My preceptor for this patient encounter was Dr. Mir Echevarria. The preceptor was physically present in the building during the encounter and was fully available. As needed, all aspects of the patient interview, examination, medical decision making process, and medical care plan development were reviewed and approved by the preceptor. The preceptor is aware and concurs with the plan as stated in the body of this note and will attest to such by his/her cosignature. GUILLERMINA
[2016-10-27] MEDS ORDERED: TRAN1.5D2 TD (15:31)
[2016-10-27] MEDS ORDERED: [UNRECOGNIZED DRUG - CODE] INH (15:31)
[2016-10-27] MEDS ORDERED: IPRASOL4 NEB (15:31)
[2016-10-27] MEDS ORDERED: MAPA325T2 PO (15:31)
[2016-10-28] MEDS: IPRATROPIUM 0.5MG/ALBUTEROL 2.5MG INH SOL UD 3ML (DUONEB)(J7620) NEB SCH ×3 (03:26→11:02)
[2016-10-28] MEDS: LIDOCAINE 4% INJ 5 ML AMP INH SCH (07:22)
[2016-10-28] MEDS ORDERED: ATROPINE SULFATE 1% OP SOLN 2 ML BTL SL PRN (07:30)
[2016-10-28] MEDS ORDERED: LORazepam 1 MG TAB PO PRN (07:30)
[2016-10-28] MEDS ORDERED: MORPHINE 10MG/0.5ML ORAL CONCENTRATE SOLUTION U/D SL PRN ×2 (07:30→07:45)
[2016-10-28] MEDS ORDERED: ONDANSETRON 4 MG ORAL DISINTEGRATING TAB (S0181) PO PRN (07:30)
[2016-10-28] MEDS ORDERED: BISACODYL 10 MG SUPP PR PRN (07:30)
[2016-10-28] MEDS ORDERED: BISA10SU PR (07:37)
[2016-10-28] MEDS ORDERED: ONDA4TAB6 PO (07:37)
[2016-10-28] MEDS ORDERED: ATIV1TAB7 PO ×4 (07:37→08:45)
[2016-10-28] MEDS ORDERED: MORP1SOL SL ×3 (07:37→12:14)
[2016-10-28] MEDS ORDERED: ATRO1OPD SL (07:37)
[2016-10-28] MEDS: **NOTE PATIENT COMMENT** MISC XX SCH (07:43)
[2016-10-28] MEDS: MULTIVITAMINS/MINERALS THERAP 1 TAB PO SCH (08:44)
[2016-10-28] MEDS: BENZONATATE 100 MG CAP PO SCH (08:44)
[2016-10-28] MEDS ORDERED: ALB2.5NEB INH (12:07)
--- NOTE | 2016-10-29 04:06 | DSES ---
DATE OF ADMISSION: 10/19/2016 DATE OF DISCHARGE: 10/28/2016 PRIMARY CARE PROVIDER: Dr. Isacc Pritchard PROCEDURES: None. CONSULTS: 1. Dr. Velásquez and Dr. Rushing, pulmonology. 2. Dr. Mello, cardiology. DIAGNOSTIC IMAGING: Echocardiogram showed ejection fraction (EF) of 55%, low normal global left ventricular systolic function with mild to moderate concentric left ventricular hypertrophy, grade 1 diastolic dysfunction, aortic valve sclerosis with mild aortic regurgitation, mild annulus calcification, mild tricuspid regurgitation with normal calculated pulmonary artery systolic pressure. CT chest showed chronic interstitial fibrosis, new alveolar densities extensive throughout both lungs suggestive of acute infiltrates and chronic fibrosis, new small bilateral pleural effusions, chronic mediastinal lymphadenopathy, cholelithiasis, cardiomegaly without pericardial effusion. Repeat chest x-ray showed diffuse bilateral interstitial and alveolar infiltrates compatible with advanced pulmonary edema worse compared to prior study. DISCHARGE DIAGNOSES: 1. Acute hypoxic respiratory failure. 2. Advanced chronic idiopathic pulmonary fibrosis. 3. Klebsiella influenza and pneumonia. 4. Elevated troponin secondary to demand ischemia. 5. Nonsustained ventricular tachycardia. 6. Diastolic heart failure, decompensated. 7. Hypothyroidism. 8. Acute kidney injury. 9. Pulmonary fibrosis secondary to usual interstitial pneumonia. 10. Obstructive sleep apnea on continuous positive airway pressure (CPAP). Pulmonary function tests from June 2016 showed total lung capacity 66%, DLCO 3.81 (17%), DLCO from August 2016 was 5.6. HOSPITAL COURSE: Mr. Lozano is an 80-year-old male with past medical history as mentioned above who presented on the day of admission for shortness of breath that had been ongoing for at least three days. Because of his symptoms, he had chest x-ray and CT with results as mentioned. His BNP on admission was 3060. Because of concern that his shortness of breath was secondary to progression of his underlying pulmonary disease as well as pneumonia and pulmonary congestion, he was treated with broad-spectrum antibiotic coverage and also aggressively diuresed. Results came back from his sputum culture positive for Klebsiella nutriematham is antibiotic choice was narrowed down to Rocephin and azithromycin. Despite treatment of his pneumonia, his condition continued to deteriorate. He was also continued on diuresis. Yet, even with diuresis, he also did not show any improvement. He was also started on steroids for his symptoms. He was also shown to have multiple runs of nonsustained V-tach and was evaluated by cardiology. With multiple adjustments in medications for his pulmonary and congestive heart failure (CHF), his condition continued to worsen. Because of his condition, the patient then stated that he wanted to be made DO NOT RESUSCITATE (DNR), DO NOT INTUBATE (DNI) with comfort measures only. The case was also discussed with the daughter who is a nurse at bedside and who agreed with his wishes. 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 Because of his advanced pulmonary condition, the patient was referred to hospice for further assistance with home hospice. Unfortunately, this was denied by hospice provider despite discussions from attending and pulmonary specialists, who know the patient well and have taken care of the patient in an outpatient setting. At this time, the patient's family had opted out of hospice and have expressed desire to take him home under their care with home health. Patient does not have a hospice provider who will be able to assume the patient's medications. The case was discussed with Dr. Pritchard, who is the patient's primary care provider (PCP), who has agreed to assume the patient's comfort measures only (COMPUTER COMPOSITOR) care. DISPOSITION: Home with home services under PCPs care. Activity as tolerated. Diet: Regular. Condition: Guarded. DISCHARGE MEDICATIONS: - Tylenol 650 mg every four hours as needed - albuterol sulfate 2.5 mg inhaled every 2 hours as needed and every four hours scheduled - atropine one drop sublingual every 2 hours for terminal secretions - bisacodyl 10 mg every 24 hours as needed for constipation - Ativan 1 mg every 2 hours as needed for anxiety - morphine 5 mg sublingual every 2 hours as needed for severe pain - Zofran 4 mg every six hours as needed - scopolamine 1.5 mg every three days for secretions Continue the following home medications: - Tessalon Perles 100 mg three times a day as needed Stop the following home medications: - prednisone 10 mg by mouth daily - multivitamin - levothyroxine 75 mcg by mouth daily FOLLOWUP: Followup with Dr. Pritchard as needed. The patient and family was advised to call if they have any other questions or concerns. TIME SPENT: One hour. My preceptor for this patient encounter was Dr. Keshawn De Leon. The preceptor was physically present in the building during the encounter and was fully available as needed. All aspects of the patient interview, examination, medical decision making process, and medical care plan development were reviewed and approved by the preceptor. The preceptor is aware and concurs with the plan as stated in the body of this note and will attest to such by his co-signature.
== END 2016-10-28 14:41 | disposition home health service (06) | DRG 177 ==
LOC: M ED 13:02 → M ED INP 20:06 → M PCU 10-20 17:59 → M MS5PR 10-25 14:39
PROVIDERS: ADMIT Internal Medicine; ATTEND Internal Medicine
DX: J15.0 Pneumonia due to Klebsiella pneumoniae (principal); J96.01 Acute respiratory failure with hypoxia; I50.31 Acute diastolic (congestive) heart failure; N17.9 Acute kidney failure, unspecified; I24.8 Other forms of acute ischemic heart disease; I47.2 Ventricular tachycardia; B96.1 Klebsiella pneumoniae [K. pneumoniae] as the cause of diseases classified elsewhere; Z66 Do not resuscitate; R79.89 Other specified abnormal findings of blood chemistry; B96.3 Hemophilus influenzae [H. influenzae] as the cause of diseases classified elsewhere; E03.9 Hypothyroidism, unspecified; J84.112 Idiopathic pulmonary fibrosis; J44.9 Chronic obstructive pulmonary disease, unspecified; Z99.89 Dependence on other enabling machines and devices; Z51.5 Encounter for palliative care; Z79.899 Other long term (current) drug therapy; Z99.81 Dependence on supplemental oxygen; Z87.891 Personal history of nicotine dependence; Z91.030 Bee allergy status